=== PATIENT | male | born 1945 | race Caucasian/White ===

== ENCOUNTER 2018-05-03 15:12 | Inpatient (IN) ==
[2018-05-03] MEDS ORDERED: Propofol 1000 mg/100 ml Inj 1,000 MG/100 ML BOTTLE IV.CONT PRN (15:38)
[2018-05-03] MEDS ORDERED: Sod Chloride 0.9% Inj 1,000 ML IV.SIG ONE (15:38)
[2018-05-03] MEDS ORDERED: Piperacil/Tazo 4.5 GM Premix 4.5 GM/100 ML BAG IV.SIG STA (15:38)
[2018-05-03] MEDS ORDERED: Acetaminophen 650 MG Supp RECTAL ONE (15:41)
[2018-05-03] MEDS ORDERED: Sod Chloride 0.9% Inj 1,000 ML IV.CONT SCH ×2 (15:45→17:00)
[2018-05-03] MEDS ORDERED: Sod Chloride 0.9% Inj 1,000 ML IV.SIG SCH (15:45)
--- NOTE | 2018-05-03 15:52 | ED ---
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 Value Yes Sodium (136-145) meq/L Potassium (3.5-5.1) meq/L Chloride (98-107) meq/L Carbon Dioxide (21.0-32.0) meq/L Anion Gap (5-15) meq/L BUN (7-18) mg/dL Creatinine (0.60-1.30) mg/dL Estimated GFR (>89) mL/min POC Glucose (68-110) mg/dl Random Glucose (74-106) mg/dL Lactic Acid (0.4-2.0) mmol/L Calcium (8.5-10.1) mg/dL Calcium Adj for Albumin (8.5-10.1) mg/dL Phosphorus (2.5-4.9) mg/dL Magnesium (1.5-2.5) mg/dL Total Bilirubin (0.2-1.0) mg/dL AST (15-37) U/L ALT (12-78) U/L Alkaline Phosphatase (45-117) U/L Ammonia (11-32) mcmol/L Lactate Dehydrogenase (87-241) U/L Total Creatine Kinase (39-308) U/L CK-MB (CK-2) (0.5-3.6) ng/mL CK-MB (CK-2) % (0.0-4.0) % Troponin I (0.02-0.05) ng/mL Total Protein (6.4-8.2) g/dL Albumin (3.4-5.0) g/dL Lipase (73-393) U/L TSH (0.358-3.740) uIU/mL Urine Color (Yellw/Straw) Urine Clarity (Clear) Urine pH (5.0-8.5) Ur Specific Pray (1.002-1.035) Urine Protein (Neg-Trace) mg/dL Urine Glucose (UA) (Negative) mg/dL Urine Ketones (Negative) mg/dL Urine Occult Blood (Negative) Urine Nitrate (Negative) Urine Bilirubin (Negative) Urine Urobilinogen (Less than 2) mg/dL Ur Leukocyte Esterase (Negative) Urine RBC (0-3) /hpf Urine WBC (0-5) /hpf Ur Squamous Epith Cells (0-5) /hpf Urine Bacteria (None) /hpf Hyaline Casts (0-3) /lpf Urine Mucus (Occasional) /lpf Micro UA Comment Ur Microscopic Review Urine Culture Comments Ur Random Creatinine (27-300) mg/dL Ur Random Sodium meq/L Nasal Screen MRSA (PCR) Not detected (Negative) Urine Opiates Screen (Neg) Ur Barbiturates Screen (Neg) Ur Amphetamines Screen (Neg) U Benzodiazepines Scrn (Neg) Urine Cocaine Screen (Neg) U Cannabinoids Screen (Neg) Hepatitis A IgM Ab Nonreactive (Nonreactive) Hep Bs Antigen Nonreactive (Nonreactive) Hep B Core IgM Ab Nonreactive (Nonreactive) Hep C IgG Ab Nonreactive (Nonreactive) Blood Type Antibody Screen 05/03/18 05/03/18 05/03/18 Range/Units 22:55 23:45 23:45 WBC (4.0-11.0) th/mm3 RBC (4.50-5.90) mil/mm3 Hgb (13.0-17.0) gm/dL Hct (39.0-51.0) % MCV (80.0-100.0) fL MCH (27.0-34.0) pg MCHC (32.0-36.0) % RDW (11.6-17.2) % Plt Count (150-450) th/mm3 MPV (7.0-11.0) fL Prelim Diff (Auto) Neut % (Auto) (16.0-70.0) % Lymph % (Auto) (9.0-44.0) % [place] % (Auto) (0.0-8.0) % Eos % (Auto) (0.0-4.0) % Baso % (Auto) (0.0-2.0) % Neut # (Auto) (1.8-7.7) th/mm3 Lymph # (Auto) (1.0-4.8) th/mm3 [place] # (Auto) (0.0-0.9) th/mm3 Eos # (Auto) (0.0-0.4) th/mm3 Baso # (Auto) (0.0-0.2) th/mm3 WBC Differential Seg Neuts % (Manual) (16-70) % Band Neuts % (Manual) (0-6) % Lymphocytes % (Manual) (9-44) % Monocytes % (Manual) (0-8) % Metamyelocytes % (Man) (0-1) % Myelocytes % (Man) (0-0) % Promyelocytes % (Man) (0-0) % Abs Neuts (Manual) (1.8-7.7) th/mm3 Differential Comment Toxic Granulation (None) Dohle Bodies (None) Platelet Estimate (Normal) Platelet Morphology (Normal) PT (9.8-11.6) sec INR Ratio APTT 59.7 H D (23.4-31.7) sec Fibrinogen (227-377) mg/dL Puncture Site Art line Patient Temperature 98.6 O2 Saturation 98 (90-100) % ABG pH 7.20 L* (7.380-7.420) ABG pCO2 46 H (38-42) mmHg ABG pO2 377 H (61-120) mmHg ABG HCO3 17 L (22-26) mmol/L ABG O2 Content 19.7 (12.0-20.0) Vol % ABG Base Excess -9.7 L (-2-2) mmol/L ABG Methemoglobin 1.5 (0-2) % Micah Test Hemoglobin 13.7 (12.0-16.0) G/DL Carboxyhemoglobin 0.1 (0-4) % O2 Delivery Device Ventilator Vent Setting Ac 24, vt 550,peep 5 Inspired O2 100 % Critical Value Yes Sodium (136-145) meq/L Potassium (3.5-5.1) meq/L Chloride (98-107) meq/L Carbon Dioxide (21.0-32.0) meq/L Anion Gap (5-15) meq/L BUN (7-18) mg/dL Creatinine (0.60-1.30) mg/dL Estimated GFR (>89) mL/min POC Glucose (68-110) mg/dl Random Glucose (74-106) mg/dL Lactic Acid 4.3 H* (0.4-2.0) mmol/L Calcium (8.5-10.1) mg/dL Calcium Adj for Albumin (8.5-10.1) mg/dL Phosphorus (2.5-4.9) mg/dL Magnesium (1.5-2.5) mg/dL Total Bilirubin (0.2-1.0) mg/dL AST (15-37) U/L ALT (12-78) U/L Alkaline Phosphatase (45-117) U/L Ammonia (11-32) mcmol/L Lactate Dehydrogenase (87-241) U/L Total Creatine Kinase (39-308) U/L CK-MB (CK-2) (0.5-3.6) ng/mL CK-MB (CK-2) % (0.0-4.0) % Troponin I (0.02-0.05) ng/mL Total Protein (6.4-8.2) g/dL Albumin (3.4-5.0) g/dL Lipase (73-393) U/L TSH (0.358-3.740) uIU/mL Urine Color (Yellw/Straw) Urine Clarity (Clear) Urine pH (5.0-8.5) Ur Specific Pray (1.002-1.035) Urine Protein (Neg-Trace) mg/dL Urine Glucose (UA) (Negative) mg/dL Urine Ketones (Negative) mg/dL Urine Occult Blood (Negative) Urine Nitrate (Negative) Urine Bilirubin (Negative) Urine Urobilinogen (Less than 2) mg/dL Ur Leukocyte Esterase (Negative) Urine RBC (0-3) /hpf Urine WBC (0-5) /hpf Ur Squamous Epith Cells (0-5) /hpf Urine Bacteria (None) /hpf Hyaline Casts (0-3) /lpf Urine Mucus (Occasional) /lpf Micro UA Comment Ur Microscopic Review Urine Culture Comments Ur Random Creatinine (27-300) mg/dL Ur Random Sodium meq/L Nasal Screen MRSA (PCR) (Negative) Urine Opiates Screen (Neg) Ur Barbiturates Screen (Neg) Ur Amphetamines Screen (Neg) U Benzodiazepines Scrn (Neg) Urine Cocaine Screen (Neg) U Cannabinoids Screen (Neg) Hepatitis A IgM Ab (Nonreactive) Hep Bs Antigen (Nonreactive) Hep B Core IgM Ab (Nonreactive) Hep C IgG Ab (Nonreactive) Blood Type Antibody Screen 05/03/18 05/03/18 05/03/18 Range/Units 23:45 23:45 23:53 WBC (4.0-11.0) th/mm3 RBC (4.50-5.90) mil/mm3 Hgb (13.0-17.0) gm/dL Hct (39.0-51.0) % MCV (80.0-100.0) fL MCH (27.0-34.0) pg MCHC (32.0-36.0) % RDW (11.6-17.2) % Plt Count (150-450) th/mm3 MPV (7.0-11.0) fL Prelim Diff (Auto) Neut % (Auto) (16.0-70.0) % Lymph % (Auto) (9.0-44.0) % [place] % (Auto) (0.0-8.0) % Eos % (Auto) (0.0-4.0) % Baso % (Auto) (0.0-2.0) % Neut # (Auto) (1.8-7.7) th/mm3 Lymph # (Auto) (1.0-4.8) th/mm3 [place] # (Auto) (0.0-0.9) th/mm3 Eos # (Auto) (0.0-0.4) th/mm3 Baso # (Auto) (0.0-0.2) th/mm3 WBC Differential Seg Neuts % (Manual) (16-70) % Band Neuts % (Manual) (0-6) % Lymphocytes % (Manual) (9-44) % Monocytes % (Manual) (0-8) % Metamyelocytes % (Man) (0-1) % Myelocytes % (Man) (0-0) % Promyelocytes % (Man) (0-0) % Abs Neuts (Manual) (1.8-7.7) th/mm3 Differential Comment Toxic Granulation (None) Dohle Bodies (None) Platelet Estimate (Normal) Platelet Morphology (Normal) PT (9.8-11.6) sec INR Ratio APTT (23.4-31.7) sec Fibrinogen (227-377) mg/dL Puncture Site Patient Temperature O2 Saturation (90-100) % ABG pH (7.380-7.420) ABG pCO2 (38-42) mmHg ABG pO2 (61-120) mmHg ABG HCO3 (22-26) mmol/L ABG O2 Content (12.0-20.0) Vol % ABG Base Excess (-2-2) mmol/L ABG Methemoglobin (0-2) % Micah Test Hemoglobin (12.0-16.0) G/DL Carboxyhemoglobin (0-4) % O2 Delivery Device Vent Setting Inspired O2 % Critical Value Sodium 143 (136-145) meq/L Potassium 5.5 H (3.5-5.1) meq/L Chloride 113 H (98-107) meq/L Carbon Dioxide 17.8 L (21.0-32.0) meq/L Anion Gap 12 (5-15) meq/L BUN 31 H (7-18) mg/dL Creatinine 2.31 H (0.60-1.30) mg/dL Estimated GFR 28 L (>89) mL/min POC Glucose 119 H (68-110) mg/dl Random Glucose 117 H (74-106) mg/dL Lactic Acid (0.4-2.0) mmol/L Calcium 6.4 L* D (8.5-10.1) mg/dL Calcium Adj for Albumin 7.8 L (8.5-10.1) mg/dL Phosphorus (2.5-4.9) mg/dL Magnesium 1.9 (1.5-2.5) mg/dL Total Bilirubin (0.2-1.0) mg/dL AST (15-37) U/L ALT (12-78) U/L Alkaline Phosphatase (45-117) U/L Ammonia 54 H (11-32) mcmol/L Lactate Dehydrogenase (87-241) U/L Total Creatine Kinase 43198 H (39-308) U/L CK-MB (CK-2) 71.3 H (0.5-3.6) ng/mL CK-MB (CK-2) % 0.6 (0.0-4.0) % Troponin I 0.53 H (0.02-0.05) ng/mL Total Protein (6.4-8.2) g/dL Albumin 2.2 L (3.4-5.0) g/dL Lipase (73-393) U/L TSH 0.625 (0.358-3.740) uIU/mL Urine Color (Yellw/Straw) Urine Clarity (Clear) Urine pH (5.0-8.5) Ur Specific Pray (1.002-1.035) Urine Protein (Neg-Trace) mg/dL Urine Glucose (UA) (Negative) mg/dL Urine Ketones (Negative) mg/dL Urine Occult Blood (Negative) Urine Nitrate (Negative) Urine Bilirubin (Negative) Urine Urobilinogen (Less than 2) mg/dL Ur Leukocyte Esterase (Negative) Urine RBC (0-3) /hpf Urine WBC (0-5) /hpf Ur Squamous Epith Cells (0-5) /hpf Urine Bacteria (None) /hpf Hyaline Casts (0-3) /lpf Urine Mucus (Occasional) /lpf Micro UA Comment Ur Microscopic Review Urine Culture Comments Ur Random Creatinine (27-300) mg/dL Ur Random Sodium meq/L Nasal Screen MRSA (PCR) (Negative) Urine Opiates Screen (Neg) Ur Barbiturates Screen (Neg) Ur Amphetamines Screen (Neg) U Benzodiazepines Scrn (Neg) Urine Cocaine Screen (Neg) U Cannabinoids Screen (Neg) Hepatitis A IgM Ab (Nonreactive) Hep Bs Antigen (Nonreactive) Hep B Core IgM Ab (Nonreactive) Hep C IgG Ab (Nonreactive) Blood Type Antibody Screen 05/04/18 05/04/18 05/04/18 Range/Units 05:24 05:45 05:45 WBC 10.9 (4.0-11.0) th/mm3 RBC 4.08 L (4.50-5.90) mil/mm3 Hgb 14.3 (13.0-17.0) gm/dL Hct 42.1 (39.0-51.0) % MCV 103.4 H (80.0-100.0) fL MCH 35.1 H (27.0-34.0) pg MCHC 33.9 (32.0-36.0) % RDW 14.2 (11.6-17.2) % Plt Count 199 (150-450) th/mm3 MPV 8.5 (7.0-11.0) fL Prelim Diff (Auto) Neut % (Auto) 80.9 H (16.0-70.0) % Lymph % (Auto) 17.8 (9.0-44.0) % [place] % (Auto) 1.1 (0.0-8.0) % Eos % (Auto) 0.1 (0.0-4.0) % Baso % (Auto) 0.1 (0.0-2.0) % Neut # (Auto) 8.8 H (1.8-7.7) th/mm3 Lymph # (Auto) 1.9 (1.0-4.8) th/mm3 [place] # (Auto) 0.1 (0.0-0.9) th/mm3 Eos # (Auto) 0.0 (0.0-0.4) th/mm3 Baso # (Auto) 0.0 (0.0-0.2) th/mm3 WBC Differential . Seg Neuts % (Manual) (16-70) % Band Neuts % (Manual) (0-6) % Lymphocytes % (Manual) (9-44) % Monocytes % (Manual) (0-8) % Metamyelocytes % (Man) (0-1) % Myelocytes % (Man) (0-0) % Promyelocytes % (Man) (0-0) % Abs Neuts (Manual) (1.8-7.7) th/mm3 Differential Comment Auto diff final Toxic Granulation (None) Dohle Bodies (None) Platelet Estimate (Normal) Platelet Morphology (Normal) PT 17.7 H (9.8-11.6) sec INR 1.7 Ratio APTT 174.6 H* D (23.4-31.7) sec Fibrinogen 200 L (227-377) mg/dL Puncture Site Art line Patient Temperature 98.6 O2 Saturation 95 (90-100) % ABG pH 7.18 L* (7.380-7.420) ABG pCO2 42 (38-42) mmHg ABG pO2 111 (61-120) mmHg ABG HCO3 15 L* (22-26) mmol/L ABG O2 Content 18.7 (12.0-20.0) Vol % ABG Base Excess -12.0 L (-2-2) mmol/L ABG Methemoglobin 1.5 (0-2) % Micah Test Hemoglobin 13.9 (12.0-16.0) G/DL Carboxyhemoglobin 0.1 (0-4) % O2 Delivery Device Ventilator Vent Setting Ac 24 vt 550 Inspired O2 60 % Critical Value Yes Sodium (136-145) meq/L Potassium (3.5-5.1) meq/L Chloride (98-107) meq/L Carbon Dioxide (21.0-32.0) meq/L Anion Gap (5-15) meq/L BUN (7-18) mg/dL Creatinine (0.60-1.30) mg/dL Estimated GFR (>89) mL/min POC Glucose (68-110) mg/dl Random Glucose (74-106) mg/dL Lactic Acid (0.4-2.0) mmol/L Calcium (8.5-10.1) mg/dL Calcium Adj for Albumin (8.5-10.1) mg/dL Phosphorus (2.5-4.9) mg/dL Magnesium (1.5-2.5) mg/dL Total Bilirubin (0.2-1.0) mg/dL AST (15-37) U/L ALT (12-78) U/L Alkaline Phosphatase (45-117) U/L Ammonia (11-32) mcmol/L Lactate Dehydrogenase (87-241) U/L Total Creatine Kinase (39-308) U/L CK-MB (CK-2) (0.5-3.6) ng/mL CK-MB (CK-2) % (0.0-4.0) % Troponin I (0.02-0.05) ng/mL Total Protein (6.4-8.2) g/dL Albumin (3.4-5.0) g/dL Lipase (73-393) U/L TSH (0.358-3.740) uIU/mL Urine Color (Yellw/Straw) Urine Clarity (Clear) Urine pH (5.0-8.5) Ur Specific Pray (1.002-1.035) Urine Protein (Neg-Trace) mg/dL Urine Glucose (UA) (Negative) mg/dL Urine Ketones (Negative) mg/dL Urine Occult Blood (Negative) Urine Nitrate (Negative) Urine Bilirubin (Negative) Urine Urobilinogen (Less than 2) mg/dL Ur Leukocyte Esterase (Negative) Urine RBC (0-3) /hpf Urine WBC (0-5) /hpf Ur Squamous Epith Cells (0-5) /hpf Urine Bacteria (None) /hpf Hyaline Casts (0-3) /lpf Urine Mucus (Occasional) /lpf Micro UA Comment Ur Microscopic Review Urine Culture Comments Ur Random Creatinine (27-300) mg/dL Ur Random Sodium meq/L Nasal Screen MRSA (PCR) (Negative) Urine Opiates Screen (Neg) Ur Barbiturates Screen (Neg) Ur Amphetamines Screen (Neg) U Benzodiazepines Scrn (Neg) Urine Cocaine Screen (Neg) U Cannabinoids Screen (Neg) Hepatitis A IgM Ab (Nonreactive) Hep Bs Antigen (Nonreactive) Hep B Core IgM Ab (Nonreactive) Hep C IgG Ab (Nonreactive) Blood Type Antibody Screen 12/17/18 12/17/18 12/17/18 Range/Units 05:45 05:45 05:58 WBC (4.0-11.0) th/mm3 RBC (4.50-5.90) mil/mm3 Hgb (13.0-17.0) gm/dL Hct (39.0-51.0) % MCV (80.0-100.0) fL MCH (27.0-34.0) pg MCHC (32.0-36.0) % RDW (11.6-17.2) % Plt Count (150-450) th/mm3 MPV (7.0-11.0) fL Prelim Diff (Auto) Neut % (Auto) (16.0-70.0) % Lymph % (Auto) (9.0-44.0) % [place] % (Auto) (0.0-8.0) % Eos % (Auto) (0.0-4.0) % Baso % (Auto) (0.0-2.0) % Neut # (Auto) (1.8-7.7) th/mm3 Lymph # (Auto) (1.0-4.8) th/mm3 [place] # (Auto) (0.0-0.9) th/mm3 Eos # (Auto) (0.0-0.4) th/mm3 Baso # (Auto) (0.0-0.2) th/mm3 WBC Differential Seg Neuts % (Manual) (16-70) % Band Neuts % (Manual) (0-6) % Lymphocytes % (Manual) (9-44) % Monocytes % (Manual) (0-8) % Metamyelocytes % (Man) (0-1) % Myelocytes % (Man) (0-0) % Promyelocytes % (Man) (0-0) % Abs Neuts (Manual) (1.8-7.7) th/mm3 Differential Comment Toxic Granulation (None) Dohle Bodies (None) Platelet Estimate (Normal) Platelet Morphology (Normal) PT (9.8-11.6) sec INR Ratio APTT (23.4-31.7) sec Fibrinogen (227-377) mg/dL Puncture Site Patient Temperature O2 Saturation (90-100) % ABG pH (7.380-7.420) ABG pCO2 (38-42) mmHg ABG pO2 (61-120) mmHg ABG HCO3 (22-26) mmol/L ABG O2 Content (12.0-20.0) Vol % ABG Base Excess (-2-2) mmol/L ABG Methemoglobin (0-2) % Micah Test Hemoglobin (12.0-16.0) G/DL Carboxyhemoglobin (0-4) % O2 Delivery Device Vent Setting Inspired O2 % Critical Value Sodium 142 (136-145) meq/L Potassium 3.9 D (3.5-5.1) meq/L Chloride 111 H (98-107) meq/L Carbon Dioxide 16.8 L (21.0-32.0) meq/L Anion Gap 14 (5-15) meq/L BUN 35 H (7-18) mg/dL Creatinine 2.78 H (0.60-1.30) mg/dL Estimated GFR 23 L (>89) mL/min POC Glucose 202 H (68-110) mg/dl Random Glucose 221 H D (74-106) mg/dL Lactic Acid 6.0 H* (0.4-2.0) mmol/L Calcium 6.3 L* (8.5-10.1) mg/dL Calcium Adj for Albumin 7.9 L (8.5-10.1) mg/dL Phosphorus 6.0 H D (2.5-4.9) mg/dL Magnesium 1.9 (1.5-2.5) mg/dL Total Bilirubin 1.5 H (0.2-1.0) mg/dL AST 3620 H (15-37) U/L ALT 1462 H (12-78) U/L Alkaline Phosphatase 249 H (45-117) U/L Ammonia (11-32) mcmol/L Lactate Dehydrogenase (87-241) U/L Total Creatine Kinase (39-308) U/L CK-MB (CK-2) (0.5-3.6) ng/mL CK-MB (CK-2) % (0.0-4.0) % Troponin I (0.02-0.05) ng/mL Total Protein 4.8 L D (6.4-8.2) g/dL Albumin 2.0 L (3.4-5.0) g/dL Lipase (73-393) U/L TSH (0.358-3.740) uIU/mL Urine Color (Yellw/Straw) Urine Clarity (Clear) Urine pH (5.0-8.5) Ur Specific Pray (1.002-1.035) Urine Protein (Neg-Trace) mg/dL Urine Glucose (UA) (Negative) mg/dL Urine Ketones (Negative) mg/dL Urine Occult Blood (Negative) Urine Nitrate (Negative) Urine Bilirubin (Negative) Urine Urobilinogen (Less than 2) mg/dL Ur Leukocyte Esterase (Negative) Urine RBC (0-3) /hpf Urine WBC (0-5) /hpf Ur Squamous Epith Cells (0-5) /hpf Urine Bacteria (None) /hpf Hyaline Casts (0-3) /lpf Urine Mucus (Occasional) /lpf Micro UA Comment Ur Microscopic Review Urine Culture Comments Ur Random Creatinine (27-300) mg/dL Ur Random Sodium meq/L Nasal Screen MRSA (PCR) (Negative) Urine Opiates Screen (Neg) Ur Barbiturates Screen (Neg) Ur Amphetamines Screen (Neg) U Benzodiazepines Scrn (Neg) Urine Cocaine Screen (Neg) U Cannabinoids Screen (Neg) Hepatitis A IgM Ab (Nonreactive) Hep Bs Antigen (Nonreactive) Hep B Core IgM Ab (Nonreactive) Hep C IgG Ab (Nonreactive) Blood Type Antibody Screen Imaging Data Radiologist's impression: Chest CTA 05/03/18 00:00 CONCLUSION: 1. Multiple acute displaced rib fractures bilaterally. 2. Spiculated left upper lobe mass not identified on the patient's prior chest x-ray due to technique. This is concerning for underlying malignancy. 3. Slight left lung base infiltrate. Head CT 05/03/18 15:38 CONCLUSION: Chronic small vessel ischemic and atrophic changes. Chest X-Ray 05/03/18 15:39 CONCLUSION: No acute cardiopulmonary disease. Abdomen/Pelvis CT 05/03/18 16:39 CONCLUSION: Cholelithiasis and fatty liver. Chest X-Ray 05/04/18 06:00 CONCLUSION: The lungs are clear. Lines and tubes stable. Discharge Plan Discharge Disposition Patient Disposition: ED Admit(ED Internal Use Only) Discharge Order Discharge Orders: ED Use Only Admit Order (Routine); Ordered 05/03/18 Ordered By: Vinnie Castillo Physicians Team ED Provider: Vninie Castillo Primary Care Provider: UNKNOWN, Attending Provider: Griffin Ceballos Other Providers: Wing Krystian Montiel Louis Status ED Status: Left Department Discharge Information Discharge Date/Time: 05/03/18 18:00
[2018-05-03 16:07] LABS: ABG Base Excess -14.2 mmol/L (-2-2); ABG PCO2 47 mmHg (38-42); ABG PO2 447 mmHg (61-120)
[2018-05-03 16:11] LABS: Baso # (Auto) 0.1 th/mm3 (0.0-0.2); Baso % (Auto) 1.2 % (0.0-2.0); Eos % (Auto) 0.5 % (0.0-4.0); Hematocrit 40.7 % (39.0-51.0); Hemoglobin 12.8 gm/dL (13.0-17.0); Lymph # (Auto) 1.5 th/mm3 (1.0-4.8); Lymph % (Auto) 22.4 % (9.0-44.0); Mean Corpuscular HGB Conc 31.5 % (32.0-36.0); Mean Corpuscular Hemoglobin 34.8 pg (27.0-34.0); Mean Corpuscular Volume 110.3 fL (80.0-100.0); Mean Platelet Volume 8.5 fL (7.0-11.0); Mono # (Auto) 0.4 th/mm3 (0.0-0.9); Mono % (Auto) 5.3 % (0.0-8.0); Neut # (Auto) 4.9 th/mm3 (1.8-7.7); Neut % (Auto) 70.6 % (16.0-70.0); Platelet Count 252 th/mm3 (150-450); Red Blood Count 3.69 mil/mm3 (4.50-5.90); White Blood Count 6.9 th/mm3 (4.0-11.0)
--- NOTE | 2018-05-03 16:15 | XR ---
EXAM DATE: 05/03/2018 4:09 PM EST AGE/SEX: 72 years / Male INDICATIONS: Patient has respiratory distress, intubated. CLINICAL DATA: This is the patient's initial encounter. Patient reports that signs and symptoms have been present for 1 day and indicates a pain score of Nonresponsive. MEDICAL/SURGICAL HISTORY: Non-responsive. Non-responsive. COMPARISON: [facility], XR CHEST PA AND LAT, 04/28/2018. . FINDINGS: The lungs are clear without infiltrate, nodule, or mass. There is no appreciable pleural effusion for technique. Heart and mediastinum are unremarkable. Right IJ line is present with tip overlapping the expected region of the SVC. No definite pneumothora x is seen for technique. NG tube is present with tip in the stomach. ET tube is present with tip overlapping approximately 3 above the james. CONCLUSION: No acute cardiopulmonary disease. Electronically signed by: Trudy Melendez MD Board Certified Radiologist 05/03/2018 4:14 PM EST
[2018-05-03 16:25] LABS: Bacteria,Urine Rare /hpf; Bilirubin,Urine Negative (Negative); Clarity,Urine Cloudy (Clear); Color,Urine Amber (Yellw/Straw); Glucose,Urine (UA) Negative (Negative); Hyaline Casts,Urine 3 /lpf (0-3); Leukocyte Esterase,Urine Trace (Negative); Mucus,Urine Few /lpf (Occasional); Nitrite,Urine Negative (Negative); Specific Gravity,Urine 1.021 (1.002-1.035); Squamous Epithelial Cell,Urine <1 /hpf (0-5)
[2018-05-03] MEDS ORDERED: Oseltamivir Liq 30 MG/5 ML Oral Syringe PO ONE (16:27)
[2018-05-03 16:30] LABS: Alanine Aminotransferase 438 U/L (12-78); Albumin 2.3 g/dL (3.4-5.0); Anion Gap 18 meq/L (5-15); Aspartate Aminotransferase 648 U/L (15-37); Blood Urea Nitrogen 22 mg/dL (7-18); Calcium 7.5 mg/dL (8.5-10.1); Carbon Dioxide 15.4 meq/L (21.0-32.0); Chloride 110 meq/L (98-107); Glomerular Filtration Rate 39 mL/min (>89); Glucose,Random 92 mg/dL (74-106); Potassium 4.9 meq/L (3.5-5.1); Sodium 143 meq/L (136-145)
[2018-05-03 16:32] LABS: Activated Partial Thrombo Time 47.5 sec (23.4-31.7); Alkaline Phosphatase 159 U/L (45-117); INR 1.2 Ratio; Prothrombin Time 12.1 sec (9.8-11.6); Total Protein 5.5 g/dL (6.4-8.2)
[2018-05-03 16:43] LABS: Troponin I 0.06 ng/mL (0.02-0.05)
[2018-05-03 16:44] LABS: CKMB Percent 2.3 % (0.0-4.0); Creatine Kinase MB 7.5 ng/mL (0.5-3.6)
[2018-05-03 16:48] LABS: Lymphocytes 12 % (9-44); Metamyelocytes 5 % (0-1); Monocytes 9 % (0-8); Myelocytes 3 % (0-0); Platelet Estimate Normal (Normal); Platelet Morphology Normal (Normal); Promyelocyte 1 % (0-0)
[2018-05-03] MEDS ORDERED: fentaNYL 10 mcg/mL Premix Drip 2,500 MCG/250 ML BAG IV.SIG PRN (16:50)
[2018-05-03] MEDS ORDERED: Bisacodyl 10 MG Supp RECTAL PRN (16:50)
[2018-05-03] MEDS ORDERED: Dextrose 50% in Water 50 ML Vial IV.PUSH PRN (16:56)
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
--- NOTE | 2018-05-03 17:05 | P.CONCA ---
History of Present Illness Service: [facility] cardiology Consult date: 05/03/18 Requesting Physician: Vinnie Castillo Reason for Consult: post cardiac arrest. Primary Care Provider: UNKNOWN History of Present Illness: Patient was intubated and sedated. Info obtained from DR. Castillo in ED Patient was found down on the street by his neighbor. He was talking to his neighbor about 10 minutes ago. EMS was called. Per dr. Castillo, initial rhythm was asystole. Patient was resuscitated, intubated, and regained sinus rhythm. Initial SBP was 40, up to 70 after IV fluid, then to 110 on Dopamine. ECG showed sinus tachy, upsloping ST depression precordial leads. Review of Systems unobtainable due to endotracheal tube PMFSH - History History Provided By: Easement Man / EMT - Medical / Surgical Hx Neg / Unobtainable Medical Problems Denied: Unable to Obtain - Medical History Medical History: Medical History (Last Updated 05/03/18 @ 17:07 by Griffin Ceballos MD) COPD (chronic obstructive pulmonary disease) HTN (hypertension) - Surgical History Surgical History: Surgical History (Last Updated 05/03/18 @ 17:07 by Griffin Ceballos MD) Surgical history unknown - Family History Family History: Family History (Last Updated 05/03/18 @ 17:08 by Griffin Ceballos MD) Other Family history unknown - Tobacco History Smoking Status: Refused to answer - Alcohol History How Often Do You Have a Drink Containing Alcohol: Unable to Obtain - Substance Use History Substance History: Unable to Obtain - Travel History Recent Travel in the [place] Within the Last 8 Weeks: No Recent Travel Out of the Country Within the Last 8 Weeks: No - Immunization History Tetanus Immunization: Unable to Assess Medications and Allergies Active Medications: Active Medications Sodium Chloride (Ns Inj) 1,000 mls @ 0 mls/hr IV.SIG .Q0M GLORIA Propofol (Diprivan 1000 Mg/100 Ml Inj) 1,000 mg in 100 mls @ 2.545 mls/hr IV.CONT TITRATE PRN; Protocol PRN Reason: Per Protocol Last Titration: 05/03/18 16:28 Dose: 10 mcg/kg/min, 5.09 mls/hr Sodium Chloride (Ns Flush) 2 ml IV.FLUSH PRN PRN PRN Reason: FLUSH AFTER USING IV ACCESS Allergies Allergy/AdvReac Type Severity Reaction Status Date / Time procaine [From Novocain] Allergy Arrhythmias Verified 05/03/18 15:13 Home Medications Medication Instructions Recorded Confirmed Type enalapril maleate 5 mg PO DAILY 05/03/18 05/03/18 History mometasone-formoterol [Dulera] 2 puff INHALATION BID 05/03/18 05/03/18 History montelukast [Singulair] 10 mg PO QPM 05/03/18 05/03/18 History tiotropium bromide [Spiriva with 1 cap INHALATION DAILY 05/03/18 05/03/18 History HandiHaler] Exam Vital signs: Vital Signs 05/03/18 15:16 05/03/18 15:20 05/03/18 15:22 Temperature Pulse Rate 117 H Respiratory Rate 17 25 H Blood Pressure 86/54 L Pulse Oximetry 86 L 100 98 05/03/18 15:25 05/03/18 15:27 05/03/18 15:44 Temperature 102.3 F H Pulse Rate 122 H 123 H Respiratory Rate 20 20 Blood Pressure 141/66 H 137/66 Pulse Oximetry 98 98 05/03/18 16:09 05/03/18 16:22 05/03/18 16:49 Temperature Pulse Rate 103 H 102 H Respiratory Rate 20 20 Blood Pressure 145/74 H 122/58 L Pulse Oximetry 100 100 100 Intake & Output 05/02/18 05/03/18 05/03/18 18:59 06:59 18:59 Intake Total 100 / 100 Balance 100 / 100 Weight 84.822 kg Intake: IV 100 / 100 Zosyn 4.5 GM Premix 4.5 gm In 100 / 100 100 ml @ 200 mls/hr IV.SIG STAT STA Rx#:[id number] - Constitutional Comments: sedated on ventilator - Routine Neck Exam Present: JVD - Routine Respiratory Exam Present: CTA bilaterally - Routine Cardiovascular Exam Present: RRR, S1, S2 - Routine Abdominal Exam Present: soft, normoactive bowel sounds Results 05/03/18 18:36 05/03/18 18:36 Cardiac Enzymes 05/03/18 05/03/18 Range/Units 15:45 15:45 AST 648 H (15-37) U/L CK-MB (CK-2) 7.5 H (0.5-3.6) ng/mL Troponin I 0.06 H (0.02-0.05) ng/mL Coagulation 05/03/18 Range/Units 15:45 PT 12.1 H (9.8-11.6) sec APTT 47.5 H (23.4-31.7) sec CBC 05/03/18 Range/Units 15:45 WBC 6.9 (4.0-11.0) th/mm3 RBC 3.69 L (4.50-5.90) mil/mm3 Hgb 12.8 L (13.0-17.0) gm/dL Hct 40.7 (39.0-51.0) % Plt Count 252 (150-450) th/mm3 Neut # (Auto) 4.9 (1.8-7.7) th/mm3 Lymph # (Auto) 1.5 (1.0-4.8) th/mm3 [place] # (Auto) 0.4 (0.0-0.9) th/mm3 Eos # (Auto) 0.0 (0.0-0.4) th/mm3 Baso # (Auto) 0.1 (0.0-0.2) th/mm3 Comprehensive Metabolic Panel 05/03/18 Range/Units 15:45 Sodium 143 (136-145) meq/L Potassium 4.9 (3.5-5.1) meq/L Chloride 110 H (98-107) meq/L Carbon Dioxide 15.4 L (21.0-32.0) meq/L BUN 22 H (7-18) mg/dL Creatinine 1.74 H (0.60-1.30) mg/dL Calcium 7.5 L (8.5-10.1) mg/dL AST 648 H (15-37) U/L ALT 438 H (12-78) U/L Alkaline Phosphatase 159 H (45-117) U/L Total Protein 5.5 L (6.4-8.2) g/dL Albumin 2.3 L (3.4-5.0) g/dL Intake and Output 05/03/18 05/03/18 05/03/18 06:59 14:59 22:59 Intake Total 100 / 100 Balance 100 / 100 Intake: IV 100 / 100 Zosyn 4.5 GM Premix 4.5 gm In 100 / 100 100 ml @ 200 mls/hr IV.SIG STAT STA Rx#:[id number] Other: Weight 84.822 kg Patient Weight 05/04/18 06:59 Weight 84.822 kg - Imaging and Cardiology Imaging: Impressions Chest X-Ray 05/03/18 15:39 CONCLUSION: No acute cardiopulmonary disease. Assessment and Plan - Assessment (1) Cardiac arrest Code(s): I46.9 - Cardiac arrest, cause unspecified Status: Acute (2) Hypotension Code(s): I95.9 - Hypotension, unspecified Status: Acute - Plan 1. Cardiac arrest, initial rhythm asystole. Unknown etiology. EKG showed no acute ischemic changes. Pending imaging study of head chest and abdomen. Will need 2D echocardiogram to assess left ventricular function valvular abnormality. When patient have meaningful neurologic recovery, consider ischemic workup. Patient will be managed by ICU team. Will follow closely. [facility] Cardiology team will continue care this patient tomorrow.
--- NOTE | 2018-05-03 17:20 | CT ---
EXAM DATE: 05/03/2018 5:15 PM EST AGE/SEX: 72 years / Male INDICATIONS: Fall today, Patient coded, Altered Mental Status CLINICAL DATA: This is the patient's initial encounter. Patient reports that signs and symptoms have been present for 1 day and indicates a pain score of Nonresponsive. MEDICAL/SURGICAL HISTORY: Chronic obstructive pulmonary disease. Hypertension. None. RADIATION DOSE: 46.62 CTDI (mGy) COMPARISON: No prior exams available for comparison. TECHNIQUE: CT of the head without contrast. Using automated exposure control and adjustment of the mA and/or kV according to patient size, radiation dose was kept as low as reasonably achievable to ob tain optimal diagnostic quality images. DICOM format image data is available electronically for revi ew and comparison. FINDINGS: There is no evidence for intracranial hemorrhage, mass effect, mass lesions, or edema. The visualize d bony structures appear intact. Moderate degree of brain atrophy is seen. Moderate periventricular white matter changes are seen nonspecific mostly consistent with chronic small vessel ischemic change s. There are no signs of acute infarction for technique. CONCLUSION: Chronic small vessel ischemic and atrophic changes. Electronically signed by: Trudy Melendez MD Board Certified Radiologist 05/03/2018 5:18 PM EST
[2018-05-03] MEDS ORDERED: fentaNYL 10 mcg/mL Premix Drip 2,500 MCG/250 ML BAG ONE (17:39)
--- NOTE | 2018-05-03 17:39 | CT ---
EXAM DATE: 05/03/2018 5:30 PM EST AGE/SEX: 72 years / Male INDICATIONS: Fall today, Abdomen pain CLINICAL DATA: This is the patient's initial encounter. Patient reports that signs and symptoms have been present for 1 day and indicates a pain score of Nonresponsive. MEDICAL/SURGICAL HISTORY: Chronic obstructive pulmonary disease. Hypertension. None. RADIATION DOSE: 14.86 CTDI (mGy) COMPARISON: No prior exams available for comparison. TECHNIQUE: Multiple contiguous axial images were obtained through the abdomen. Images were obtained using multiple row detector helical technique. Using automated exposure control and adjustment of the mA and/or kV according to patient size, radiation dose was kept as low as reasonably achievable to o btain optimal diagnostic quality images. DICOM format image data is available electronically for rev iew and comparison. FINDINGS: Abdomen CT: The spleen, pancreas, kidneys, adrenals are unremarkable. There is no evidence for any appreciable p athological adenopathy, free fluid, or bowel obstruction. Slight left lung base atelectasis and/or i nfiltrate is seen. The liver is fatty. Gallstones are present within the gallbladder without signs of cholecystitis for technique. There are atherosclerotic calcifications involving the aorta and iliac arteries chronic in nature. Th ere are numerous diverticuli within the colon mainly the sigmoid colon without signs of diverticuliti s for technique. Pelvic CT: There is no evidence for mass, abscess formation, or any significant adenopathy within the pelvis. T here is prominent fat within right inguinal canal without evidence for bowel herniation. CONCLUSION: Cholelithiasis and fatty liver. Electronically signed by: Trudy Melendez MD Board Certified Radiologist 05/03/2018 5:38 PM EST
[2018-05-03] MEDS ORDERED: Heparin Drip 25,000 UNIT/250 ML BAG IV.CONT PRN (17:46)
--- NOTE | 2018-05-03 17:46 | CT ---
EXAM DATE: 05/03/2018 5:31 PM EST AGE/SEX: 72 years / Male INDICATIONS: Fall today, patient coded CLINICAL DATA: This is the patient's initial encounter. Patient reports that signs and symptoms have been present for 1 day and indicates a pain score of Nonresponsive. MEDICAL/SURGICAL HISTORY: Chronic obstructive pulmonary disease. Hypertension. None. RADIATION DOSE: 19.77 CTDI (mGy) COMPARISON: [facility] – [place], CHEST 1V SINGLE AP, 05/03/2018. . TECHNIQUE: Volumetric scanning was performed using a multi-row detector CT scanner during bolus infu bucky of 50ML ml Visipaque 320 (iodixanol) nonionic water-soluble contrast as a single exam dose. The data was post processed with a variety of visualization algorithms including full volume maximum int ensity projection and sliding thin slab reformation. Using automated exposure control and adjustment of the mA and/or kV according to patient size, radiation dose was kept as low as reasonably achievab le to obtain optimal diagnostic quality images. DICOM format image data is available electronically for review and comparison. FINDINGS: Approximate 1.5 cm spiculated mass is present left upper lobe concerning for underlying malignancy. There is slight left lung base slight scarring or atelectasis is seen within lingula as well. COPD ch anges are seen. atelectasis and/or infiltrate. There are multiple acute displaced rib fractures bilaterally. No definite pneumothorax is seen for technique. CONCLUSION: 1. Multiple acute displaced rib fractures bilaterally. 2. Spiculated left upper lobe mass not identified on the patient's prior chest x-ray due to techniqu e. This is concerning for underlying malignancy. 3. Slight left lung base infiltrate. Electronically signed by: Trudy Melendez MD Board Certified Radiologist 05/03/2018 5:44 PM EST
--- NOTE | 2018-05-03 18:34 | P.PCN ---
Date of procedure: 05/03/18 Pre-op diagnosis: Target temperature monitoring Post-op diagnosis: same Procedure: DATE: 05/03/2018 PROCEDURE: Right femoral arterial catheter placement INDICATION: Hemodynamic access DETAILS OF PROCEDURE The patient was placed in supine position. The skin was cleansed with Chloraprep. Additional barrier precautions included large sterile drape, sterile gloves, sterile gown, face mask, and hat. 1% lidocaine was used for local anesthesia. Under direct ultrasound guidance and on the initial attempt, the artery was accessed with an introducer needle. The guide wire was advanced. Using Seldinger technique 20 gauge arterial catheter was placed. The guide wire was removed. The catheter was connected to a transducer line and flushed with saline. The video monitor displayed normal arterial wave forms. The catheter was secured with 2-0 silk. A sterile dressing with antibiotic disc was applied. ESTIMATED BLOOD LOSS: minimal COMPLICATIONS: None
--- NOTE | 2018-05-03 18:36 | P.PCN ---
Date of procedure: 05/03/18 Pre-op diagnosis: Out of hospital cardiac arrest/target temperature monitoring Post-op diagnosis: same Procedure: DATE: 05/03/2018 Quatro catheter PLACEMENT: Right femoral vein. Ultrasound-guided INDICATION: Targeted temperature CONSENT Informed consent for procedure was obtained and considered emergent DESCRIPTION OF THE PROCEDURE The patient was placed in supine position. The skin was cleansed with Chloraprep. Additional barrier precautions included large sterile drape, sterile gloves, sterile gown, face mask, and hat. 1 % lidocaine was used for local anesthesia. Under direct ultrasound guidance and on initial attempt, the vein was accessed with an introducer needle. The guide wire was advanced and the tract was dilated twice. Using Seldinger technique a 45 cm Zoll cooling Quattro catheter triple-lumen catheter was advanced to a depth of 45 centimeters. The guide wire was removed. All ports had good return of dark venous blood and flushed easily with saline. The central line was secured with 2.0 silk. A sterile dressing with antibiotic disc was applied. ESTIMATED BLOOD LOSS: Minimal COMPLICATIONS: No apparent complications.
[2018-05-03 18:58] LABS: Hematocrit 42.9 % (39.0-51.0); Hemoglobin 14.1 gm/dL (13.0-17.0); Mean Corpuscular HGB Conc 32.9 % (32.0-36.0); Mean Corpuscular Hemoglobin 33.8 pg (27.0-34.0); Mean Corpuscular Volume 102.7 fL (80.0-100.0); Mean Platelet Volume 8.1 fL (7.0-11.0); Platelet Count 284 th/mm3 (150-450); Red Blood Count 4.18 mil/mm3 (4.50-5.90); Red Cell Distribution Width 13.8 % (11.6-17.2); White Blood Count 19.4 th/mm3 (4.0-11.0)
[2018-05-03 19:10] LABS: Activated Partial Thrombo Time 42.2 sec (23.4-31.7); INR 1.3 Ratio; Prothrombin Time 13.4 sec (9.8-11.6)
[2018-05-03 19:30] LABS: Albumin 2.5 g/dL (3.4-5.0); Calcium 7.2 mg/dL (8.5-10.1); Carbon Dioxide 15.5 meq/L (21.0-32.0); Magnesium 1.9 mg/dL (1.5-2.5); Phosphorus 7.1 mg/dL (2.5-4.9); Potassium 5.5 meq/L (3.5-5.1)
[2018-05-03 19:48] LABS: Troponin I 0.29 ng/mL (0.02-0.05)
[2018-05-03 19:49] LABS: Hepatitits B Surface Antigen Nonreactive (Nonreactive)
[2018-05-03] MEDS: Artificial Tears Opth Oint 3.5 GM Tube EACH EYE PRN ×2 (19:58→23:28)
[2018-05-03 19:59] LABS: Dohle Bodies Present; Lymphocytes 6 % (9-44); Metamyelocytes 1 % (0-1); Monocytes 1 % (0-8); Myelocytes 1 % (0-0); Platelet Estimate Normal (Normal); Platelet Morphology Normal (Normal); Toxic Granulation 1+
[2018-05-03] MEDS: Propofol 1000 mg/100 ml Inj 1,000 MG/100 ML BOTTLE IV.CONT PRN (19:59)
[2018-05-03 20:03] LABS: CKMB Percent 0.6 % (0.0-4.0); Creatine Kinase MB 46.2 ng/mL (0.5-3.6)
[2018-05-03 20:22] LABS: ABG Base Excess -13.1 mmol/L (-2-2); ABG PCO2 46 mmHg (38-42); ABG PO2 106 mmHG (61-120)
[2018-05-03] MEDS: Cisatracurium Inj 100 MG in Sodium Chlor 0.9% Inj 240 ML IV.CONT PRN (20:27)
[2018-05-03] MEDS: Multivitamin Inj 10 ML, Thiamine Inj 100 MG, Folic Acid Inj 1 MG in Sodium Chlor 0.9% I... IV.SIG SCH (20:27)
[2018-05-03 21:03] LABS: Hepatitis A IgM Antibody Nonreactive (Nonreactive)
[2018-05-03 23:15] LABS: ABG Base Excess -9.7 mmol/L (-2-2); ABG PCO2 46 mmHg (38-42); ABG PO2 377 mmHG (61-120)
[2018-05-03] MEDS: Oseltamivir Phosphate 30 MG Capsule NG/OG SCH (23:23)
[2018-05-03] MEDS: Sodium Bicarbonate 8.4% Inj 150 MEQ in Dextrose 5% in Water Inj 850 ML IV.CONT SCH ×2 (23:23)
[2018-05-03] MEDS: Insulin NovoLOG Aspart Correctional Sugar Inj SQ SCH (23:27)
[2018-05-03] MEDS: Artificial Tears Opth Oint 3.5 GM Tube EACH EYE SCH (23:30)
[2018-05-03] MEDS: Chlorhexidine 0.12% Oral Kit 15 ML UDC OROPHARYNG SCH (23:30)
[2018-05-03] MEDS: Senna/Docusate Sodium 8.6/50 MG Tablet PO SCH (23:30)
[2018-05-04] MEDS: Insulin NovoLOG Aspart Correctional Sugar Inj SQ SCH ×4 (00:54→19:45)
[2018-05-04] MEDS: Oral Hygiene Kit OROPHARYNG SCH ×4 (00:55→16:36)
[2018-05-04 00:56] LABS: Barbiturate Screen,Urine Neg (Neg); Cannabinoid Screen,Urine Neg (Neg); Cocaine Screen,Urine Neg (Neg); Creatinine,Urine Random 192 mg/dL (27-300); Sodium,Urine Random 64 meq/L
[2018-05-04 00:57] LABS: Amphetamine Screen,Urine Neg (Neg)
[2018-05-04 00:59] LABS: Opiate Screen,Urine Neg (Neg)
[2018-05-04 01:08] LABS: Calcium 6.4 mg/dL (8.5-10.1); Carbon Dioxide 17.8 meq/L (21.0-32.0); Magnesium 1.9 mg/dL (1.5-2.5); Potassium 5.5 meq/L (3.5-5.1); Thyroid Stimulating Hormone 0.625 uIU/mL (0.358-3.740); Troponin I 0.53 ng/mL (0.02-0.05)
[2018-05-04 01:22] LABS: Albumin 2.2 g/dL (3.4-5.0); CKMB Percent 0.6 % (0.0-4.0); Calcium-Albumin Corrected 7.8 mg/dL (8.5-10.1); Creatine Kinase MB 71.3 ng/mL (0.5-3.6)
[2018-05-04] MEDS: Norepinephrine Inj 4 MG in Sodium Chlor 0.9% Inj 246 ML IV.SIG PRN ×3 (03:06→21:25)
[2018-05-04] MEDS ORDERED: Chlorhexidine Gluconate 2% 1 Pack (2 Cloths) TOPICAL PRN (04:00)
--- NOTE | 2018-05-04 04:50 | XR ---
EXAM DATE: 05/04/2018 4:39 AM EST AGE/SEX: 72 years / Male INDICATIONS: Shortness of breath, possible pulmonary disease. CLINICAL DATA: This is the patient's subsequent encounter. Patient reports that signs and symptoms h ave been present for 2 days and indicates a pain score of Nonresponsive. MEDICAL/SURGICAL HISTORY: Chronic obstructive pulmonary disease. Hypertension. Non-responsive. COMPARISON: [facility], CHEST 1V SINGLE AP, 05/03/2018. . FINDINGS: ET tube tip well above the james. Gastric tube tip and side-port project within the stomach. Right i nternal jugular catheter tip projects over the distal superior vena cava. The lungs are symmetrically aerated and clear. No evidence of pneumothorax. The heart is normal in size. Both hemidiaphragms wel l delineated. CONCLUSION: The lungs are clear. Lines and tubes stable. Electronically signed by: Jose Alberto Burgos MD Board Certified Radiologist 05/04/2018 4:48 AM EST
[2018-05-04] MEDS: Cisatracurium Inj 100 MG in Sodium Chlor 0.9% Inj 240 ML IV.CONT PRN ×3 (05:11→19:02)
[2018-05-04] MEDS: Chlorhexidine Gluconate 2% 1 Pack (2 Cloths) TOPICAL SCH (05:15)
[2018-05-04 05:33] LABS: ABG PCO2 42 mmHg (38-42); ABG PO2 111 mmHG (61-120)
[2018-05-04 06:09] LABS: Baso % (Auto) 0.1 % (0.0-2.0); Eos % (Auto) 0.1 % (0.0-4.0); Hematocrit 42.1 % (39.0-51.0); Hemoglobin 14.3 gm/dL (13.0-17.0); Lymph # (Auto) 1.9 th/mm3 (1.0-4.8); Lymph % (Auto) 17.8 % (9.0-44.0); Mean Corpuscular HGB Conc 33.9 % (32.0-36.0); Mean Corpuscular Hemoglobin 35.1 pg (27.0-34.0); Mean Corpuscular Volume 103.4 fL (80.0-100.0); Mean Platelet Volume 8.5 fL (7.0-11.0); Mono # (Auto) 0.1 th/mm3 (0.0-0.9); Mono % (Auto) 1.1 % (0.0-8.0); Neut # (Auto) 8.8 th/mm3 (1.8-7.7); Neut % (Auto) 80.9 % (16.0-70.0); Platelet Count 199 th/mm3 (150-450); Red Blood Count 4.08 mil/mm3 (4.50-5.90); Red Cell Distribution Width 14.2 % (11.6-17.2); White Blood Count 10.9 th/mm3 (4.0-11.0)
[2018-05-04 06:30] LABS: INR 1.7 Ratio; Prothrombin Time 17.7 sec (9.8-11.6)
[2018-05-04 06:50] LABS: Activated Partial Thrombo Time 174.6 sec (23.4-31.7)
[2018-05-04 06:54] LABS: Calcium 6.3 mg/dL (8.5-10.1); Carbon Dioxide 16.8 meq/L (21.0-32.0); Magnesium 1.9 mg/dL (1.5-2.5); Potassium 3.9 meq/L (3.5-5.1); Total Protein 4.8 g/dL (6.4-8.2)
--- NOTE | 2018-05-04 07:58 | P.PNCA ---
Subjective Interval history: Patient seen and examined. Intubated and sedated. Undergoing hypothermia protocol s/p cardiac arrest. Medications and Allergies Active Medications: Active Medications Albuterol (Albuterol Neb (Prn)) 2.5 mg NEB Q2HR NEB PRN PRN Reason: SHORTNESS OF BREATH/WHEEZING Albuterol (Duoneb Neb (Mc)) 1 ampul NEB Q4HR NEB [facility] Last Admin: 05/04/18 07:51 Dose: 1 ampul Artificial Tears (Lacrilube Opth Oint) 1 applicatio EACH EYE BID [facility] Last Admin: 05/03/18 23:30 Dose: 1 applicatio Artificial Tears (Lacrilube Opth Oint) 1 applicatio EACH EYE Q4H PRN PRN Reason: WHILE ON NMB Last Admin: 05/03/18 23:28 Dose: 1 applicatio Ascorbic Acid (Vitamin C) 500 mg PO DAILY [facility] Aspirin (Ecotrin) 81 mg PO DAILY [facility] Bisacodyl (Dulcolax Supp) 10 mg RECTAL DAILY PRN PRN Reason: SEVERE CONSITIPATION Budesonide (Pulmocort Respule Neb) 0.5 mg NEB Q12HR NEB [facility] Last Admin: 05/04/18 07:51 Dose: 0.5 mg Buspirone HCl (Buspar) 15 mg NG/OG Q12H PRN PRN Reason: SHIVERING Carvedilol (Coreg) 3.125 mg PO BID [facility] Last Admin: 05/03/18 23:28 Dose: 3.125 mg Chlorhexidine Gluconate (Peridex 0.12% Oral Kit) 15 ml OROPHARYNG BID@0800, 2000 [facility] Last Admin: 05/03/18 23:30 Dose: 15 ml Chlorhexidine Gluconate (Chlorhexidine 2% Cloth) 3 pack TOPICAL DAILY@0400 [facility] Stop: 05/09/18 03:59 Last Admin: 05/04/18 05:15 Dose: 3 pack Chlorhexidine Gluconate (Chlorhexidine 2% Cloth) 3 pack TOPICAL DAILY@0400 PRN PRN Reason: Extra cloth needed Stop: 05/09/18 03:59 Dextrose (D50w Vial) 50 ml IV.PUSH UNSCH PRN PRN Reason: PER HYPOGLYCEMIA PROTOCOL Glucagon (Glucagon Inj) 1 mg OTHER PRN PRN PRN Reason: for Hypoglycemia Protocol Sodium Chloride (Ns Inj) 1,000 mls @ 0 mls/hr IV.SIG .Q0M MC Fentanyl (Fentanyl 10 Mcg/Ml Premix Drip) 2,500 mcg in 250 mls @ 5 mls/hr IV.SIG TITRATE PRN; Protocol PRN Reason: Per Protocol Last Titration: 05/04/18 06:11 Dose: 50 mcg/hr, 5 mls/hr Propofol (Diprivan 1000 Mg/100 Ml Inj) 1,000 mg in 100 mls @ 2.545 mls/hr IV.CONT TITRATE PRN; Protocol PRN Reason: Per Protocol Last Titration: 05/04/18 06:11 Dose: 5 mcg/kg/min, 2.55 mls/hr Multivitamins 10 ml/ Thiamine HCl 100 mg/ Folic Acid 1 mg/Sodium Chloride 511.2 mls @ 125 mls/hr IV.SIG Q24H [facility] Stop: 05/05/18 22:06 Last Infusion: 05/04/18 00:56 Dose: Infused Heparin Sodium/Dextrose (Heparin/D5w 25,000 U/250 Ml) 25,000 unit in 250 mls @ 0 mls/hr IV.CONT TITRATE PRN; Protocol PRN Reason: Per Protocol Last Titration: 05/04/18 07:00 Dose: 0 units/hr, 0 mls/hr Cisatracurium Besylate 100 mg/ (Sodium Chloride) 250 mls @ 12.72 mls/hr IV.CONT TITRATE PRN; Protocol PRN Reason: Per Protocol Last Titration: 05/04/18 06:11 Dose: 3 mcg/kg/min, 38.16 mls/hr Norepinephrine Bitartrate 4 mg (/ Sodium Chloride) 250 mls @ 7.5 mls/hr IV.SIG TITRATE PRN; Protocol PRN Reason: Per Protocol Last Titration: 05/04/18 07:00 Dose: 2 mcg/min, 7.5 mls/hr Sodium Bicarbonate 150 meq/ (Dextrose) 1,000 mls @ 84 mls/hr IV.CONT .[id number] [facility] Last Infusion: 05/04/18 06:11 Dose: 84 mls/hr Insulin Aspart (Novolog Insulin Correctional Sugar Inj) 0 unit SQ Q6HR MC; Protocol Last Admin: 05/04/18 06:22 Dose: 4 unit Lactulose (Lactulose Liq) 30 ml PO DAILY PRN PRN Reason: SEVERE CONSITIPATION Lorazepam (Ativan Inj) 1 mg IV.PUSH Q1H PRN PRN Reason: SEE LABEL COMMENTS Miscellaneous Medication () 1 each OROPHARYNG 0000,0400,1200,1600 [facility] Last Admin: 05/04/18 05:15 Dose: 1 each Ondansetron HCl (Zofran Inj) 4 mg IV.PUSH Q6H PRN PRN Reason: NAUSEA OR VOMITING Oseltamivir Phosphate (Tamiflu) 30 mg NG/OG BID [facility] Stop: 05/08/18 20:59 Last Admin: 05/03/18 23:23 Dose: 30 mg Pantoprazole Sodium (Protonix Inj) 40 mg IV.PUSH DAILY [facility] Senna/Docusate Sodium (Jaelyn-Colace) 1 tab PO BID [facility] Last Admin: 05/03/18 23:30 Dose: Not Given Sennosides (Senokot) 17.2 mg PO Q12H PRN PRN Reason: Moderate Constipation Sodium Chloride (Ns Flush) 2 ml IV.FLUSH BID [facility] Last Admin: 05/03/18 23:28 Dose: 2 ml Sodium Chloride (Ns Flush) 2 ml IV.FLUSH PRN PRN PRN Reason: FLUSH AFTER USING IV ACCESS Terbutaline Sulfate (Brethine Inj) 1 mg SQ UNSCH PRN PRN Reason: For Extravasation Zinc Sulfate (Zinc-220) 220 mg PO DAILY [facility] Allergies Allergy/AdvReac Type Severity Reaction Status Date / Time procaine [From Novocain] Allergy Arrhythmias Verified 05/03/18 15:13 Home Medications Medication Instructions Recorded Confirmed Type enalapril maleate 5 mg PO DAILY 05/03/18 05/03/18 History mometasone-formoterol [Dulera] 2 puff INHALATION BID 05/03/18 05/03/18 History montelukast [Singulair] 10 mg PO QPM 05/03/18 05/03/18 History tiotropium bromide [Spiriva with 1 cap INHALATION DAILY 05/03/18 05/03/18 History HandiHaler] Physical Exam Vital signs: Vital Signs 05/03/18 15:16 05/03/18 15:20 05/03/18 15:22 Temperature Pulse Rate 117 H Respiratory Rate 17 25 H Blood Pressure 86/54 L Pulse Oximetry 86 L 100 98 05/03/18 15:25 05/03/18 15:27 05/03/18 15:44 Temperature 102.3 F H Pulse Rate 122 H 123 H Respiratory Rate 20 20 Blood Pressure 141/66 H 137/66 Pulse Oximetry 98 98 05/03/18 16:09 05/03/18 16:22 05/03/18 16:49 Temperature Pulse Rate 103 H 102 H Respiratory Rate 20 20 Blood Pressure 145/74 H 122/58 L Pulse Oximetry 100 100 100 05/03/18 17:16 05/03/18 18:25 05/03/18 19:49 Temperature Pulse Rate 103 H 95 H Respiratory Rate 20 25 H 27 H Blood Pressure 132/75 Pulse Oximetry 100 0 L 05/03/18 19:50 05/03/18 20:00 05/03/18 23:38 Temperature 97.2 F L Pulse Rate 93 H 74 Respiratory Rate 27 H 24 24 Blood Pressure Pulse Oximetry 88 L 05/04/18 00:00 05/04/18 02:10 05/04/18 03:00 Temperature 90.9 F L 91.2 F L 91.0 F L Pulse Rate 78 72 67 Respiratory Rate 24 24 24 Blood Pressure 96/51 L Pulse Oximetry 90 L 88 L 89 L 05/04/18 03:29 05/04/18 04:00 05/04/18 05:00 Temperature 91.2 F L 91.2 F L Pulse Rate 67 80 69 Respiratory Rate 24 24 24 Blood Pressure 95/58 L 89/54 L Pulse Oximetry 90 L 90 L 05/04/18 07:00 05/04/18 07:51 Temperature Pulse Rate 79 Respiratory Rate 24 24 Blood Pressure Pulse Oximetry 85 L Intake & Output 05/03/18 05/04/18 05/04/18 18:59 06:59 18:59 Intake Total 3100 / 3100 1776.2 / 1776.2 Output Total 200 / 200 415 / 415 Balance 2900 / 2900 1361.2 / 1361.2 Weight 84.822 kg 90.4 kg Intake: IV 2099 / 2099 1776.2 / 1776.2 Nimbex Inj 100 MG In NS Inj 240 38 / 38 ML @ 1 MCG/KG/MIN 12.72 mls/hr IV.CONT TITRATE PRN Rx#: [id number] Heparin/D5W 25,000 U/250 mL 25, 87 / 87 000 unit In 250 ml @ Per Protocol IV.CONT TITRATE PRN Rx #:[id number] Diprivan 1000 mg/100 ml Inj 1, 26 / 26 000 mg In 100 ml @ 5 MCG/KG/MIN 2.545 mls/hr IV.CONT TITRATE PRN Rx#:[id number] NS Inj 1,000 ML @ 84 mls/hr IV. 1000 / 1000 463 / 463 CONT .[id number] [facility] Rx#:[id number] Sodium Bicarbonate 8.4% Inj 150 566 / 566 MEQ In D5W Inj 850 ML @ 84 mls /hr IV.CONT .[id number] [facility] Rx#: [id number] MVI-12 Inj 10 ML Thiamine Inj 511.2 / 511.2 100 MG Folvite Inj 1 MG In NS Inj 500 ML @ 125 mls/hr IV.SIG Q24H [facility] Rx#:[id number] Levophed Inj 4 MG In NS Inj 246 23 / 23 ML @ 2 MCG/MIN 7.5 mls/hr IV. SIG TITRATE PRN Rx#:[id number] Zosyn 4.5 GM Premix 4.5 gm In 100 / 100 100 ml @ 200 mls/hr IV.SIG STAT STA Rx#:[id number] NS Inj 1,000 ML @ Wide Open IV. 1000 / 1000 SIG ONCE ONE Rx#:[id number] fentaNYL 10 mcg/mL Premix Drip 62 / 62 2,500 mcg In 250 ml @ 50 MCG/HR 5 mls/hr IV.SIG TITRATE PRN Rx #:[id number] Oral 0 / 0 Other 1000 / 1000 Output: Urine Amount (Catheter) 200 / 200 15 / 15 Indwelling Temp Sensing 15 / 15 Catheter Indwelling Urethral Catheter 200 / 200 0 / 0 Gastric Drainage 400 / 400 Oral Orogastric Tube 400 / 400 Other: Other Intake Source Saline Solution # Bowel Movements 0 Narrative: GENERAL: sedated, orotracheally intubated SKIN: Warm and dry. HEAD: Atraumatic. Normocephalic. NECK: Trachea midline. No JVD. Right IJ CVL is clean dry and intact CARDIOVASCULAR: Regular rate and rhythm. RESPIRATORY: No accessory muscle use. Clear to auscultation. Breath sounds equal bilaterally. GASTROINTESTINAL: Abdomen soft, non-tender, nondistended. Hepatic and splenic margins not palpable. MUSCULOSKELETAL: Extremities without clubbing, cyanosis, or edema. No obvious deformities. - Urinary Catheter Management Indwelling Urethral Catheter Cath placed during this visit: yes, but has since been removed by the nurse Reason for continuing: Decision to DC catheter Insertion date: 05/03/18 Insertion time: 16:22 Removal date: 05/03/18 Removal time: 20:00 Indwelling Temp Sensing Catheter Cath placed during this visit: yes Reason for continuing: Hourly intake/output Insertion date: 05/03/18 Insertion time: 20:05 Results 05/04/18 05:45 05/04/18 05:45 Cardiac Enzymes 05/03/18 05/03/18 05/03/18 Range/Units 15:45 15:45 18:36 AST 648 H 1981 H (15-37) U/L Lactate Dehydrogenase 2830 H (87-241) U/L CK-MB (CK-2) 7.5 H 46.2 H (0.5-3.6) ng/mL Troponin I 0.06 H 0.29 H (0.02-0.05) ng/mL 05/03/18 05/04/18 Range/Units 23:45 05:45 AST 3620 H (15-37) U/L Lactate Dehydrogenase (87-241) U/L CK-MB (CK-2) 71.3 H (0.5-3.6) ng/mL Troponin I 0.53 H (0.02-0.05) ng/mL Coagulation 05/03/18 05/03/18 05/03/18 Range/Units 15:45 18:36 23:45 PT 12.1 H 13.4 H (9.8-11.6) sec APTT 47.5 H 42.2 H 59.7 H D (23.4-31.7) sec 05/04/18 Range/Units 05:45 PT 17.7 H (9.8-11.6) sec APTT 174.6 H* D (23.4-31.7) sec CBC 05/03/18 05/03/18 05/04/18 Range/Units 15:45 18:36 05:45 WBC 6.9 19.4 H D 10.9 (4.0-11.0) th/mm3 RBC 3.69 L 4.18 L 4.08 L (4.50-5.90) mil/mm3 Hgb 12.8 L 14.1 14.3 (13.0-17.0) gm/dL Hct 40.7 42.9 42.1 (39.0-51.0) % Plt Count 252 284 199 (150-450) th/mm3 Neut # (Auto) 4.9 8.8 H (1.8-7.7) th/mm3 Lymph # (Auto) 1.5 1.9 (1.0-4.8) th/mm3 Towner # (Auto) 0.4 0.1 (0.0-0.9) th/mm3 Eos # (Auto) 0.0 0.0 (0.0-0.4) th/mm3 Baso # (Auto) 0.1 0.0 (0.0-0.2) th/mm3 Comprehensive Metabolic Panel 05/03/18 05/03/18 05/03/18 Range/Units 15:45 18:36 23:45 Sodium 143 139 143 (136-145) meq/L Potassium 4.9 5.5 H 5.5 H (3.5-5.1) meq/L Chloride 110 H 111 H 113 H (98-107) meq/L Carbon Dioxide 15.4 L 15.5 L 17.8 L (21.0-32.0) meq/L BUN 22 H 25 H 31 H (7-18) mg/dL Creatinine 1.74 H 2.05 H 2.31 H (0.60-1.30) mg/dL Calcium 7.5 L 7.2 L* 6.4 L* D (8.5-10.1) mg/dL AST 648 H 1981 H (15-37) U/L ALT 438 H 1158 H (12-78) U/L Alkaline Phosphatase 159 H 280 H (45-117) U/L Total Protein 5.5 L 6.0 L (6.4-8.2) g/dL Albumin 2.3 L 2.5 L 2.2 L (3.4-5.0) g/dL 05/04/18 Range/Units 05:45 Sodium 142 (136-145) meq/L Potassium 3.9 D (3.5-5.1) meq/L Chloride 111 H (98-107) meq/L Carbon Dioxide 16.8 L (21.0-32.0) meq/L BUN 35 H (7-18) mg/dL Creatinine 2.78 H (0.60-1.30) mg/dL Calcium 6.3 L* (8.5-10.1) mg/dL AST 3620 H (15-37) U/L ALT 1462 H (12-78) U/L Alkaline Phosphatase 249 H (45-117) U/L Total Protein 4.8 L D (6.4-8.2) g/dL Albumin 2.0 L (3.4-5.0) g/dL Intake and Output 05/03/18 05/04/18 05/04/18 22:59 06:59 14:59 Intake Total 3100 / 3100 1776.2 / 1776.2 Output Total 200 / 200 415 / 415 Balance 2900 / 2900 1361.2 / 1361.2 Intake: IV 2100 / 2100 1776.2 / 1776.2 Nimbex Inj 100 MG In NS Inj 240 38 / 38 ML @ 1 MCG/KG/MIN 12.72 mls/hr IV.CONT TITRATE PRN Rx#: [id number] Heparin/D5W 25,000 U/250 mL 25, 87 / 87 000 unit In 250 ml @ Per Protocol IV.CONT TITRATE PRN Rx #:[id number] Diprivan 1000 mg/100 ml Inj 1, 26 / 26 000 mg In 100 ml @ 5 MCG/KG/MIN 2.545 mls/hr IV.CONT TITRATE PRN Rx#:[id number] NS Inj 1,000 ML @ 84 mls/hr IV. 1000 / 1000 463 / 463 CONT .[id number] [facility] Rx#:[id number] Sodium Bicarbonate 8.4% Inj 150 566 / 566 MEQ In D5W Inj 850 ML @ 84 mls /hr IV.CONT .[id number] [facility] Rx#: [id number] MVI-12 Inj 10 ML Thiamine Inj 511.2 / 511.2 100 MG Folvite Inj 1 MG In NS Inj 500 ML @ 125 mls/hr IV.SIG Q24H [facility] Rx#:[id number] Levophed Inj 4 MG In NS Inj 246 23 / 23 ML @ 2 MCG/MIN 7.5 mls/hr IV. SIG TITRATE PRN Rx#:[id number] Zosyn 4.5 GM Premix 4.5 gm In 100 / 100 100 ml @ 200 mls/hr IV.SIG STAT STA Rx#:[id number] NS Inj 1,000 ML @ Wide Open IV. 1000 / 1000 SIG ONCE ONE Rx#:[id number] fentaNYL 10 mcg/mL Premix Drip 62 / 62 2,500 mcg In 250 ml @ 50 MCG/HR 5 mls/hr IV.SIG TITRATE PRN Rx #:[id number] Oral 0 / 0 Other 1000 / 1000 Output: Urine Amount (Catheter) 200 / 200 15 / 15 Indwelling Temp Sensing 15 / 15 Catheter Indwelling Urethral Catheter 200 / 200 0 / 0 Gastric Drainage 400 / 400 Oral Orogastric Tube 400 / 400 Other: Other Intake Source Saline Solution # Bowel Movements 0 Weight 84.822 kg 90.4 kg - Imaging and Cardiology Imaging: Impressions Chest CTA 05/03/18 00:00 CONCLUSION: 1. Multiple acute displaced rib fractures bilaterally. 2. Spiculated left upper lobe mass not identified on the patient's prior chest x-ray due to technique. This is concerning for underlying malignancy. 3. Slight left lung base infiltrate. Head CT 05/03/18 15:38 CONCLUSION: Chronic small vessel ischemic and atrophic changes. Chest X-Ray 05/03/18 15:39 CONCLUSION: No acute cardiopulmonary disease. Abdomen/Pelvis CT 05/03/18 16:39 CONCLUSION: Cholelithiasis and fatty liver. Chest X-Ray 05/04/18 06:00 CONCLUSION: The lungs are clear. Lines and tubes stable. Assessment and Plan - Plan 1. Cardiac arrest, initial rhythm asystole. Unknown etiology. EKG showed no acute ischemic changes. Will need 2D echocardiogram to assess left ventricular function valvular abnormality. When patient have meaningful neurologic recovery, consider ischemic workup. Patient will be managed by ICU team. 2. Lung mass, unclear significance, suspicious for malignancy. 3. COPD 4. HTN, currently hypotensive
[2018-05-04] MEDS: Chlorhexidine 0.12% Oral Kit 15 ML UDC OROPHARYNG SCH ×2 (08:22→20:32)
[2018-05-04] MEDS: Oseltamivir Phosphate 30 MG Capsule NG/OG SCH ×2 (08:23→20:33)
[2018-05-04] MEDS: Senna/Docusate Sodium 8.6/50 MG Tablet PO SCH ×2 (08:23→20:33)
[2018-05-04] MEDS: Artificial Tears Opth Oint 3.5 GM Tube EACH EYE SCH ×2 (08:24→20:39)
--- NOTE | 2018-05-04 08:59 | P.PNCC ---
Subjective Subjective Remarks/Hospital Course: 05/04: The patient continues on hypothermia protocol with muscle relaxation provided by cisatracurium infusion, and low-dose propofol infusion. Overnight the patient required initiation of Levophed currently at 2 mics per minute. Lab results reviewed this a.m. showed a severe acidosis despite being on sodium bicarbonate infusion at 84 cc/an hour. Additional dosing of sodium bicarbonate provided, infusion increased. Repeat EKG revealed prolongation of QT interval we will continue to monitor. Objective Vital Signs / I&O: Vital Signs 05/03/18 15:16 05/03/18 15:20 05/03/18 15:22 Temperature Pulse Rate 117 H Respiratory Rate 17 25 H Blood Pressure 86/54 L Pulse Oximetry 86 L 100 98 05/03/18 15:25 05/03/18 15:27 05/03/18 15:44 Temperature 102.3 F H Pulse Rate 122 H 123 H Respiratory Rate 20 20 Blood Pressure 141/66 H 137/66 Pulse Oximetry 98 98 05/03/18 16:09 05/03/18 16:22 05/03/18 16:49 Temperature Pulse Rate 103 H 102 H Respiratory Rate 20 20 Blood Pressure 145/74 H 122/58 L Pulse Oximetry 100 100 100 05/03/18 17:16 05/03/18 18:25 05/03/18 19:49 Temperature Pulse Rate 103 H 95 H Respiratory Rate 20 25 H 27 H Blood Pressure 132/75 Pulse Oximetry 100 0 L 05/03/18 19:50 05/03/18 20:00 05/03/18 23:38 Temperature 97.2 F L Pulse Rate 93 H 74 Respiratory Rate 27 H 24 24 Blood Pressure Pulse Oximetry 88 L 05/04/18 00:00 05/04/18 02:10 05/04/18 03:00 Temperature 90.9 F L 91.2 F L 91.0 F L Pulse Rate 78 72 67 Respiratory Rate 24 24 24 Blood Pressure 96/51 L Pulse Oximetry 90 L 88 L 89 L 05/04/18 03:29 05/04/18 04:00 05/04/18 05:00 Temperature 91.2 F L 91.2 F L Pulse Rate 67 80 69 Respiratory Rate 24 24 24 Blood Pressure 95/58 L 89/54 L Pulse Oximetry 90 L 90 L 05/04/18 07:00 05/04/18 07:51 05/04/18 08:00 Temperature Pulse Rate 79 81 Respiratory Rate 24 24 Blood Pressure 91/59 L Pulse Oximetry 85 L Intake & Output 05/03/18 05/04/18 05/04/18 18:59 06:59 18:59 Intake Total 3100 / 3100 1776.2 / 1776.2 Output Total 200 / 200 415 / 415 0 / 0 Balance 2900 / 2900 1361.2 / 1361.2 0 / 0 Weight 84.822 kg 90.4 kg Intake: IV 2100 / 2100 1776.2 / 1776.2 Nimbex Inj 100 MG In NS Inj 240 38 / 38 ML @ 1 MCG/KG/MIN 12.72 mls/hr IV.CONT TITRATE PRN Rx#: [id number] Heparin/D5W 25,000 U/250 mL 25, 87 / 87 000 unit In 250 ml @ Per Protocol IV.CONT TITRATE PRN Rx #:[id number] Diprivan 1000 mg/100 ml Inj 1, 26 / 26 000 mg In 100 ml @ 5 MCG/KG/MIN 2.545 mls/hr IV.CONT TITRATE PRN Rx#:[id number] NS Inj 1,000 ML @ 84 mls/hr IV. 1000 / 1000 463 / 463 CONT .[id number] GLORIA Rx#:[id number] Sodium Bicarbonate 8.4% Inj 150 566 / 566 MEQ In D5W Inj 850 ML @ 84 mls /hr IV.CONT .[id number] GLORIA Rx#: [id number] MVI-12 Inj 10 ML Thiamine Inj 511.2 / 511.2 100 MG Folvite Inj 1 MG In NS Inj 500 ML @ 125 mls/hr IV.SIG Q24H GLORIA Rx#:[id number] Levophed Inj 4 MG In NS Inj 246 23 / 23 ML @ 2 MCG/MIN 7.5 mls/hr IV. SIG TITRATE PRN Rx#:[id number] Zosyn 4.5 GM Premix 4.5 gm In 100 / 100 100 ml @ 200 mls/hr IV.SIG STAT STA Rx#:[id number] NS Inj 1,000 ML @ Wide Open IV. 1000 / 1000 SIG ONCE ONE Rx#:[id number] fentaNYL 10 mcg/mL Premix Drip 62 / 62 2,500 mcg In 250 ml @ 50 MCG/HR 5 mls/hr IV.SIG TITRATE PRN Rx #:[id number] Oral 0 / 0 Other 1000 / 1000 Output: Urine Amount (Catheter) 200 / 200 0 / 0 Indwelling Temp Sensing 0 / 0 Catheter Indwelling Urethral Catheter 200 / 200 0 / 0 Gastric Drainage 400 / 400 Oral Orogastric Tube 400 / 400 Other: Other Intake Source Saline Solution # Bowel Movements 0 Result Diagrams: 05/04/18 05:45 05/04/18 05:45 Other Results: Laboratory Results WBC 10.9 th/mm3 (4.0-11.0) 05/04/18 05:45 RBC 4.08 mil/mm3 (4.50-5.90) L 05/04/18 05:45 Hgb 14.3 gm/dL (13.0-17.0) 05/04/18 05:45 Hct 42.1 % (39.0-51.0) 05/04/18 05:45 MCV 103.4 fL (80.0-100.0) H 05/04/18 05:45 MCH 35.1 pg (27.0-34.0) H 05/04/18 05:45 MCHC 33.9 % (32.0-36.0) 05/04/18 05:45 RDW 14.2 % (11.6-17.2) 05/04/18 05:45 Plt Count 199 th/mm3 (150-450) 05/04/18 05:45 MPV 8.5 fL (7.0-11.0) 05/04/18 05:45 Prelim Diff (Auto) Manual diff required 05/03/18 18:36 Neut % (Auto) 80.9 % (16.0-70.0) H 05/04/18 05:45 Lymph % (Auto) 17.8 % (9.0-44.0) 05/04/18 05:45 [place] % (Auto) 1.1 % (0.0-8.0) 05/04/18 05:45 Eos % (Auto) 0.1 % (0.0-4.0) 05/04/18 05:45 Baso % (Auto) 0.1 % (0.0-2.0) 05/04/18 05:45 Neut # (Auto) 8.8 th/mm3 (1.8-7.7) H 05/04/18 05:45 Lymph # (Auto) 1.9 th/mm3 (1.0-4.8) 05/04/18 05:45 [place] # (Auto) 0.1 th/mm3 (0.0-0.9) 05/04/18 05:45 Eos # (Auto) 0.0 th/mm3 (0.0-0.4) 05/04/18 05:45 Baso # (Auto) 0.0 th/mm3 (0.0-0.2) 05/04/18 05:45 WBC Differential . 05/04/18 05:45 Seg Neuts % (Manual) 29 % (16-70) 05/03/18 18:36 Band Neuts % (Manual) 62 % (0-6) H 05/03/18 18:36 Lymphocytes % (Manual) 6 % (9-44) L 05/03/18 18:36 Monocytes % (Manual) 1 % (0-8) 05/03/18 18:36 Metamyelocytes % (Man) 1 % (0-1) 05/03/18 18:36 Myelocytes % (Man) 1 % (0-0) H 05/03/18 18:36 Promyelocytes % (Man) 1 % (0-0) H 05/03/18 15:45 Abs Neuts (Manual) 18.0 th/mm3 (1.8-7.7) H 05/03/18 18:36 Differential Comment Auto diff final 05/04/18 05:45 Toxic Granulation 1+ (None) H 05/03/18 18:36 Dohle Bodies Present (None) H 05/03/18 18:36 Platelet Estimate Normal (Normal) 05/03/18 18:36 Platelet Morphology Normal (Normal) 05/03/18 18:36 PT 17.7 sec (9.8-11.6) H 05/04/18 05:45 INR 1.7 Ratio 05/04/18 05:45 APTT 174.6 sec (23.4-31.7) H* D 05/04/18 05:45 Fibrinogen 200 mg/dL (227-377) L 05/04/18 05:45 Puncture Site Art line 05/04/18 05:24 Patient Temperature 98.6 05/04/18 05:24 O2 Saturation 95 % (90-100) 05/04/18 05:24 ABG pH 7.18 (7.380-7.420) L* 05/04/18 05:24 ABG pCO2 42 mmHg (38-42) 05/04/18 05:24 ABG pO2 111 mmHG (61-120) 05/04/18 05:24 ABG HCO3 15 mmol/L (22-26) L* 05/04/18 05:24 ABG O2 Content 18.7 Vol % (12.0-20.0) 05/04/18 05:24 ABG Base Excess -12.0 mmol/L (-2-2) L 05/04/18 05:24 ABG Methemoglobin 1.5 % (0-2) 05/04/18 05:24 Micah Test Present 05/03/18 15:57 Hemoglobin 13.9 G/DL (12.0-16.0) 05/04/18 05:24 Carboxyhemoglobin 0.1 % (0-4) 05/04/18 05:24 O2 Delivery Device Ventilator 05/04/18 05:24 Vent Setting Ac 24 vt 550 05/04/18 05:24 Inspired O2 60 % 05/04/18 05:24 Critical Value Yes 05/04/18 05:24 Sodium 142 meq/L (136-145) 05/04/18 05:45 Potassium 3.9 meq/L (3.5-5.1) D 05/04/18 05:45 Chloride 111 meq/L (98-107) H 05/04/18 05:45 Carbon Dioxide 16.8 meq/L (21.0-32.0) L 05/04/18 05:45 Anion Gap 14 meq/L (5-15) 05/04/18 05:45 BUN 35 mg/dL (7-18) H 05/04/18 05:45 Creatinine 2.78 mg/dL (0.60-1.30) H 05/04/18 05:45 Estimated GFR 23 mL/min (>89) L 05/04/18 05:45 POC Glucose 202 mg/dl (68-110) H 05/04/18 05:58 Random Glucose 221 mg/dL (74-106) H D 05/04/18 05:45 Lactic Acid 6.0 mmol/L (0.4-2.0) H* 05/04/18 05:45 Calcium 6.3 mg/dL (8.5-10.1) L* 05/04/18 05:45 Calcium Adj for Albumin 7.9 mg/dL (8.5-10.1) L 05/04/18 05:45 Phosphorus 6.0 mg/dL (2.5-4.9) H D 05/04/18 05:45 Magnesium 1.9 mg/dL (1.5-2.5) 05/04/18 05:45 Total Bilirubin 1.5 mg/dL (0.2-1.0) H 05/04/18 05:45 AST 3620 U/L (15-37) H 05/04/18 05:45 ALT 1462 U/L (12-78) H 05/04/18 05:45 Alkaline Phosphatase 249 U/L (45-117) H 05/04/18 05:45 Ammonia 54 mcmol/L (11-32) H 05/03/18 23:45 Lactate Dehydrogenase 2830 U/L (87-241) H 05/03/18 18:36 Total Creatine Kinase 99213 U/L (39-308) H 05/03/18 23:45 CK-MB (CK-2) 71.3 ng/mL (0.5-3.6) H 05/03/18 23:45 CK-MB (CK-2) % 0.6 % (0.0-4.0) 05/03/18 23:45 Troponin I 0.53 ng/mL (0.02-0.05) H 05/03/18 23:45 Total Protein 4.8 g/dL (6.4-8.2) L D 05/04/18 05:45 Albumin 2.0 g/dL (3.4-5.0) L 05/04/18 05:45 Lipase 120 U/L (73-393) 05/03/18 15:45 TSH 0.625 uIU/mL (0.358-3.740) 05/03/18 23:45 Urine Color Kori (Yellw/Straw) 05/03/18 15:45 Urine Clarity Cloudy (Clear) H 05/03/18 15:45 Urine pH 5.0 (5.0-8.5) 05/03/18 15:45 Ur Specific [place] 1.021 (1.002-1.035) 05/03/18 15:45 Urine Protein 30 mg/dL (Neg-Trace) H 05/03/18 15:45 Urine Glucose (UA) Negative mg/dL (Negative) 05/03/18 15:45 Urine Ketones 20 mg/dL (Negative) 05/03/18 15:45 Urine Occult Blood Negative (Negative) 05/03/18 15:45 Urine Nitrate Negative (Negative) 05/03/18 15:45 Urine Bilirubin Negative (Negative) 05/03/18 15:45 Urine Urobilinogen 2.0 mg/dL (Less than 2) H 05/03/18 15:45 Ur Leukocyte Esterase Trace (Negative) H 05/03/18 15:45 Urine RBC 3 /hpf (0-3) 05/03/18 15:45 Urine WBC 8 /hpf (0-5) H 05/03/18 15:45 Ur Squamous Epith Cells <1 /hpf (0-5) 05/03/18 15:45 Urine Bacteria Rare /hpf (None) H 05/03/18 15:45 Hyaline Casts 3 /lpf (0-3) 05/03/18 15:45 Urine Mucus Few /lpf (Occasional) H 05/03/18 15:45 Micro UA Comment Cath-culture ind 05/03/18 15:45 Ur Microscopic Review Not Reportable 05/03/18 15:45 Urine Culture Comments Cath-cult indicated 05/03/18 15:45 Urine Eosinophils Rare /HPF (None Seen) H 05/04/18 05:55 Ur Random Creatinine 192 mg/dL (27-300) 05/03/18 15:45 Ur Random Sodium 64 meq/L 05/03/18 15:45 Nasal Screen MRSA (PCR) Not detected (Negative) 05/03/18 18:38 Urine Opiates Screen Neg (Neg) 05/03/18 15:45 Ur Barbiturates Screen Neg (Neg) 05/03/18 15:45 Ur Amphetamines Screen Neg (Neg) 05/03/18 15:45 U Benzodiazepines Scrn Neg (Neg) 05/03/18 15:45 Urine Cocaine Screen Neg (Neg) 05/03/18 15:45 U Cannabinoids Screen Neg (Neg) 05/03/18 15:45 Hepatitis A IgM Ab Nonreactive (Nonreactive) 05/03/18 18:36 Hep Bs Antigen Nonreactive (Nonreactive) 05/03/18 18:36 Hep B Core IgM Ab Nonreactive (Nonreactive) 05/03/18 18:36 Hep C IgG Ab Nonreactive (Nonreactive) 05/03/18 18:36 Blood Type A Positive 05/03/18 18:36 Antibody Screen Negative 05/03/18 18:36 Impressions Chest CTA 05/03/18 00:00 CONCLUSION: 1. Multiple acute displaced rib fractures bilaterally. 2. Spiculated left upper lobe mass not identified on the patient's prior chest x-ray due to technique. This is concerning for underlying malignancy. 3. Slight left lung base infiltrate. Head CT 05/03/18 15:38 CONCLUSION: Chronic small vessel ischemic and atrophic changes. Abdomen/Pelvis CT 05/03/18 16:39 CONCLUSION: Cholelithiasis and fatty liver. Chest X-Ray 05/04/18 06:00 CONCLUSION: The lungs are clear. Lines and tubes stable. Objective Remarks: GENERAL: This is a well-developed well-nourished male intubated and sedated with muscle paralysis SKIN: Warm and dry. HEAD: Atraumatic. Normocephalic. EYES: Pupils equal and round. No scleral icterus. No injection or drainage. ENT: No nasal bleeding or discharge. Mucous membranes pink and moist. NECK: Trachea midline. No JVD. CARDIOVASCULAR: Normal rate, regular rhythm. RESPIRATORY: No accessory muscle use. Clear to auscultation. Breath sounds equal bilaterally. GASTROINTESTINAL: Abdomen soft, non-tender, nondistended. No guarding. MUSCULOSKELETAL: Extremities without clubbing, cyanosis, or edema. No obvious deformities. NEUROLOGICAL: GCS 3 T. Intubated and sedated, with muscle relaxation. Prior to hypothermia protocol was noted to have myoclonus. Procedures: 05/03-right femoral A-line 05/03-right femoral cooling catheter 05/03-right internal jugular Assessment and Plan - Problem List (1) Lactic acidosis Code(s): E87.2 - Acidosis Status: Acute (2) Acute kidney injury Code(s): N17.9 - Acute kidney failure, unspecified Status: Acute (3) Elevated levels of transaminase & lactic acid dehydrogenase Code(s): R74.0 - Nonspecific elevation of levels of transaminase and lactic acid dehydrogenase [LDH] Status: Acute (4) Hypoalbuminemia Code(s): E88.09 - Other disorders of plasma-protein metabolism, not elsewhere classified Status: Acute (5) Macrocytic anemia Code(s): D53.9 - Nutritional anemia, unspecified Status: Acute (6) Influenza A Code(s): J10.1 - Influenza due to other identified influenza virus with other respiratory manifestations Status: Acute (7) History of essential hypertension Code(s): Z86.79 - Personal history of other diseases of the circulatory system Status: Acute (8) History of COPD Code(s): Z87.09 - Personal history of other diseases of the respiratory system Status: Acute (9) Elevated troponin Code(s): R74.8 - Abnormal levels of other serum enzymes Status: Acute (10) Acute respiratory failure Code(s): J96.00 - Acute respiratory failure, unspecified whether with hypoxia or hypercapnia Status: Acute (11) Cardiac arrest Code(s): I46.9 - Cardiac arrest, cause unspecified Status: Acute (12) Cholelithiasis Code(s): K80.20 - Calculus of gallbladder without cholecystitis without obstruction Status: Acute (13) Rib fractures Code(s): S22.39XA - Fracture of one rib, unspecified side, initial encounter for closed fracture Status: Acute - Assessment and Plan Plan: Neuro/Psych: Acute encephalopathy possible anoxic Propofol/fentanyl drips for sedation/analgesia while intubated Goal of RASS -2 Daily sedation vacation Check EEG upon rewarming followed by Neuro consult if required CT brain small vessel ischemic changes Vit bag daily x3 days CV: Out of hospital cardiac arrest initial rhythm asystole History of essential hypertension Lactic acidosis Elevated troponin B/l rib fx Evaluated by Dr. Montiel in the ED/cardiology. No intervention planned at this time. Will start aspirin 162 mg now then 81 mg daily/carvedilol 3.125 mg BID Hep infusion MT protocol no lipid-lowering agents secondary to elevated transaminases Patient is on enalapril 5 mg daily at home. Holding RIVAS inhibitor in light of elevated creatinine Serial lactates until cleared Troponins every 6 hours x2 until downtrending, currently trending upward 0.06-> 0.2->0.53 F/U 2D echocardiogram ordered Resp: Acute respiratory failure History of COPD ABRAHAM lung mass - W/u if indicated PRVC ventilation Ventilator bundle Albuterol/ipratropium aerosols every 4 hours with albuterol every 2 hours as needed dyspnea Spontaneous breathing trials when clinically indicated Follow-up a.m. ABG and chest x-ray Patient is on tiotropium 18 mg inhaled daily and montelukast 10 mg daily and mometasone/formoterol 200 mg / [address] pulmonary angiogram b/l rib fx, REZA spiculated mass. No central PE GI: Elevated transaminases Hypoalbuminemia Cholelithiasis hepatic steatosis Orogastric tube to low intermittent wall suction Pantoprazole for GI prophylaxis Docusate serum/senna 1 tablet twice daily for bowel regimen Check hepatitis panel CT abdomen/pelvis cholelithiasis and hepatic steatosis : Straight catheterization as needed. Endo: Acute hyperglycemia Sliding scale insulin with aspart insulin with Accu-Cheks every 6 hours to maintain euglycemia/medium protocol TSH-WNL Renal: Acute kidney injury Nephrotoxic medication Monitor urine output Accurate I's and O's Check urine eosinophils, sodium and creatinine Follow BMP in a.m. 18 F/U CT abdomen/pelvis- hydronephrosis Heme: Macrocytic anemia Elevated PTT Monitor CBC daily. Follow trends No indication for transfusion of blood products at this time. Check CBC and coags in a.m. heparin protocol ID: Influenza A positive Started oseltamivir 30 mg twice daily cystitis/renal dosage Cultures x2 ordered 05/03. Results pending MSK: Physical therapy evaluate and treat FEN: Replace electrolytes as clinically indicated Currently on normal saline 84 cc an hour Access -Utilize peripheral IV. 05/04 Right IJ CVL day #2 placed by ED Prophylaxis -GI -pantoprazole -DVT -SCD/hep gtt My billing statement This patient remains critically ill with one or more organ systems which are or may become a threat to life. I have spent in excess of 39 minutes discontinuously in the care and management of this patient. This time is exclusive of procedures, and includes, but is not limited to, evaluation of the patient, review of the medical record, discussions with family, consultants, nursing staff, or respiratory therapy, and documentation in the medical record. Code Status: Full Discussed Condition With: No family at bedside. Discussed with [facility] at bedside (10) Acute respiratory failure Qualifiers: Respiratory failure complication: hypoxia and hypercapnia Qualified Code(s): J96.01 - Acute respiratory failure with hypoxia; J96.02 - Acute respiratory failure with hypercapnia (12) Cholelithiasis Qualifiers: Cholelithiasis location: gallbladder Cholecystitis presence: without cholecystitis Biliary obstruction: without biliary obstruction Qualified Code( s): K80.20 - Calculus of gallbladder without cholecystitis without obstruction (13) Rib fractures Qualifiers: Encounter type: initial encounter Rib fracture type: multiple ribs Fracture type: closed Laterality: bilateral Qualified Code(s): S22.43XA - Multiple fractures of ribs, bilateral, initial encounter for closed fracture
[2018-05-04] MEDS ORDERED: Sodium Bicarbonate 8.4% Inj 50 MEQ/50 ML Syringe IV.PUSH ONE (09:00)
[2018-05-04] MEDS ORDERED: Ascorbic Acid 500 MG Tablet PO SCH (09:00)
[2018-05-04] MEDS ORDERED: Pantoprazole Inj 40 MG Vial IV.PUSH SCH (09:00)
[2018-05-04] MEDS: Sodium Bicarbonate 8.4% Inj 150 MEQ in Dextrose 5% in Water Inj 850 ML IV.CONT SCH ×2 (09:51)
--- NOTE | 2018-05-04 10:55 | P.CONPAL ---
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 Lymphocytes % (Manual) Monocytes % (Manual) Metamyelocytes % (Man) Myelocytes % (Man) Promyelocytes % (Man) Abs Neuts (Manual) Differential Comment Toxic Granulation Dohle Bodies Platelet Estimate Platelet Morphology PT INR APTT 59.7 H D Fibrinogen Puncture Site Art line Patient Temperature 98.6 O2 Saturation 98 ABG pH 7.20 L* ABG pCO2 46 H ABG pO2 377 H ABG HCO3 17 L ABG O2 Content 19.7 ABG Base Excess -9.7 L ABG Methemoglobin 1.5 Micah Test Hemoglobin 13.7 Carboxyhemoglobin 0.1 O2 Delivery Device Ventilator Vent Setting Ac 24, vt 550,peep 5 Inspired O2 100 Critical Value Yes Sodium Potassium Chloride Carbon Dioxide Anion Gap BUN Creatinine Estimated GFR POC Glucose Random Glucose Lactic Acid 4.3 H* Calcium Calcium Adj for Albumin Phosphorus Magnesium Total Bilirubin AST ALT Alkaline Phosphatase Ammonia Lactate Dehydrogenase Total Creatine Kinase CK-MB (CK-2) CK-MB (CK-2) % Troponin I Total Protein Albumin Lipase TSH Urine Color Urine Clarity Urine pH Ur Specific [place] Urine Protein Urine Glucose (UA) Urine Ketones Urine Occult Blood Urine Nitrate Urine Bilirubin Urine Urobilinogen Ur Leukocyte Esterase Urine RBC Urine WBC Ur Squamous Epith Cells Urine Bacteria Hyaline Casts Urine Mucus Micro UA Comment Ur Microscopic Review Urine Culture Comments Urine Eosinophils Ur Random Creatinine Ur Random Sodium Nasal Screen MRSA (PCR) Urine Opiates Screen Ur Barbiturates Screen Ur Amphetamines Screen U Benzodiazepines Scrn Urine Cocaine Screen U Cannabinoids Screen Hepatitis A IgM Ab Hep Bs Antigen Hep B Core IgM Ab Hep C IgG Ab Blood Type Antibody Screen 05/03/18 05/03/18 05/03/18 23:45 23:45 23:53 WBC RBC Hgb Hct MCV MCH MCHC RDW Plt Count MPV Prelim Diff (Auto) Neut % (Auto) Lymph % (Auto) [place] % (Auto) Eos % (Auto) Baso % (Auto) Neut # (Auto) Lymph # (Auto) [place] # (Auto) Eos # (Auto) Baso # (Auto) WBC Differential Seg Neuts % (Manual) Band Neuts % (Manual) Lymphocytes % (Manual) Monocytes % (Manual) Metamyelocytes % (Man) Myelocytes % (Man) Promyelocytes % (Man) Abs Neuts (Manual) Differential Comment Toxic Granulation Dohle Bodies Platelet Estimate Platelet Morphology PT INR APTT Fibrinogen Puncture Site Patient Temperature O2 Saturation ABG pH ABG pCO2 ABG pO2 ABG HCO3 ABG O2 Content ABG Base Excess ABG Methemoglobin Micah Test Hemoglobin Carboxyhemoglobin O2 Delivery Device Vent Setting Inspired O2 Critical Value Sodium 143 Potassium 5.5 H Chloride 113 H Carbon Dioxide 17.8 L Anion Gap 12 BUN 31 H Creatinine 2.31 H Estimated GFR 28 L POC Glucose 119 H Random Glucose 117 H Lactic Acid Calcium 6.4 L* D Calcium Adj for Albumin 7.8 L Phosphorus Magnesium 1.9 Total Bilirubin AST ALT Alkaline Phosphatase Ammonia 54 H Lactate Dehydrogenase Total Creatine Kinase 07577 H CK-MB (CK-2) 71.3 H CK-MB (CK-2) % 0.6 Troponin I 0.53 H Total Protein Albumin 2.2 L Lipase TSH 0.625 Urine Color Urine Clarity Urine pH Ur Specific [place] Urine Protein Urine Glucose (UA) Urine Ketones Urine Occult Blood Urine Nitrate Urine Bilirubin Urine Urobilinogen Ur Leukocyte Esterase Urine RBC Urine WBC Ur Squamous Epith Cells Urine Bacteria Hyaline Casts Urine Mucus Micro UA Comment Ur Microscopic Review Urine Culture Comments Urine Eosinophils Ur Random Creatinine Ur Random Sodium Nasal Screen MRSA (PCR) Urine Opiates Screen Ur Barbiturates Screen Ur Amphetamines Screen U Benzodiazepines Scrn Urine Cocaine Screen U Cannabinoids Screen Hepatitis A IgM Ab Hep Bs Antigen Hep B Core IgM Ab Hep C IgG Ab Blood Type Antibody Screen 05/04/18 05/04/18 05/04/18 05:24 05:45 05:45 WBC 10.9 RBC 4.08 L Hgb 14.3 Hct 42.1 MCV 103.4 H MCH 35.1 H MCHC 33.9 RDW 14.2 Plt Count 199 MPV 8.5 Prelim Diff (Auto) Neut % (Auto) 80.9 H Lymph % (Auto) 17.8 [place] % (Auto) 1.1 Eos % (Auto) 0.1 Baso % (Auto) 0.1 Neut # (Auto) 8.8 H Lymph # (Auto) 1.9 [place] # (Auto) 0.1 Eos # (Auto) 0.0 Baso # (Auto) 0.0 WBC Differential . Seg Neuts % (Manual) Band Neuts % (Manual) Lymphocytes % (Manual) Monocytes % (Manual) Metamyelocytes % (Man) Myelocytes % (Man) Promyelocytes % (Man) Abs Neuts (Manual) Differential Comment Auto diff final Toxic Granulation Dohle Bodies Platelet Estimate Platelet Morphology PT 17.7 H INR 1.7 APTT 174.6 H* D Fibrinogen 200 L Puncture Site Art line Patient Temperature 98.6 O2 Saturation 95 ABG pH 7.18 L* ABG pCO2 42 ABG pO2 111 ABG HCO3 15 L* ABG O2 Content 18.7 ABG Base Excess -12.0 L ABG Methemoglobin 1.5 Micah Test Hemoglobin 13.9 Carboxyhemoglobin 0.1 O2 Delivery Device Ventilator Vent Setting Ac 24 vt 550 Inspired O2 60 Critical Value Yes Sodium Potassium Chloride Carbon Dioxide Anion Gap BUN Creatinine Estimated GFR POC Glucose Random Glucose Lactic Acid Calcium Calcium Adj for Albumin Phosphorus Magnesium Total Bilirubin AST ALT Alkaline Phosphatase Ammonia Lactate Dehydrogenase Total Creatine Kinase CK-MB (CK-2) CK-MB (CK-2) % Troponin I Total Protein Albumin Lipase TSH Urine Color Urine Clarity Urine pH Ur Specific [place] Urine Protein Urine Glucose (UA) Urine Ketones Urine Occult Blood Urine Nitrate Urine Bilirubin Urine Urobilinogen Ur Leukocyte Esterase Urine RBC Urine WBC Ur Squamous Epith Cells Urine Bacteria Hyaline Casts Urine Mucus Micro UA Comment Ur Microscopic Review Urine Culture Comments Urine Eosinophils Ur Random Creatinine Ur Random Sodium Nasal Screen MRSA (PCR) Urine Opiates Screen Ur Barbiturates Screen Ur Amphetamines Screen U Benzodiazepines Scrn Urine Cocaine Screen U Cannabinoids Screen Hepatitis A IgM Ab Hep Bs Antigen Hep B Core IgM Ab Hep C IgG Ab Blood Type Antibody Screen 05/04/18 05/04/18 05/04/18 05:45 05:45 05:55 WBC RBC Hgb Hct MCV MCH MCHC RDW Plt Count MPV Prelim Diff (Auto) Neut % (Auto) Lymph % (Auto) [place] % (Auto) Eos % (Auto) Baso % (Auto) Neut # (Auto) Lymph # (Auto) [place] # (Auto) Eos # (Auto) Baso # (Auto) WBC Differential Seg Neuts % (Manual) Band Neuts % (Manual) Lymphocytes % (Manual) Monocytes % (Manual) Metamyelocytes % (Man) Myelocytes % (Man) Promyelocytes % (Man) Abs Neuts (Manual) Differential Comment Toxic Granulation Dohle Bodies Platelet Estimate Platelet Morphology PT INR APTT Fibrinogen Puncture Site Patient Temperature O2 Saturation ABG pH ABG pCO2 ABG pO2 ABG HCO3 ABG O2 Content ABG Base Excess ABG Methemoglobin Micah Test Hemoglobin Carboxyhemoglobin O2 Delivery Device Vent Setting Inspired O2 Critical Value Sodium 142 Potassium 3.9 D Chloride 111 H Carbon Dioxide 16.8 L Anion Gap 14 BUN 35 H Creatinine 2.78 H Estimated GFR 23 L POC Glucose Random Glucose 221 H D Lactic Acid 6.0 H* Calcium 6.3 L* Calcium Adj for Albumin 7.9 L Phosphorus 6.0 H D Magnesium 1.9 Total Bilirubin 1.5 H AST 3620 H ALT 1462 H Alkaline Phosphatase 249 H Ammonia Lactate Dehydrogenase Total Creatine Kinase CK-MB (CK-2) CK-MB (CK-2) % Troponin I Total Protein 4.8 L D Albumin 2.0 L Lipase TSH Urine Color Urine Clarity Urine pH Ur Specific [place] Urine Protein Urine Glucose (UA) Urine Ketones Urine Occult Blood Urine Nitrate Urine Bilirubin Urine Urobilinogen Ur Leukocyte Esterase Urine RBC Urine WBC Ur Squamous Epith Cells Urine Bacteria Hyaline Casts Urine Mucus Micro UA Comment Ur Microscopic Review Urine Culture Comments Urine Eosinophils Rare H Ur Random Creatinine Ur Random Sodium Nasal Screen MRSA (PCR) Urine Opiates Screen Ur Barbiturates Screen Ur Amphetamines Screen U Benzodiazepines Scrn Urine Cocaine Screen U Cannabinoids Screen Hepatitis A IgM Ab Hep Bs Antigen Hep B Core IgM Ab Hep C IgG Ab Blood Type Antibody Screen 05/04/18 05/04/18 05:58 09:00 WBC RBC Hgb Hct MCV MCH MCHC RDW Plt Count MPV Prelim Diff (Auto) Neut % (Auto) Lymph % (Auto) [place] % (Auto) Eos % (Auto) Baso % (Auto) Neut # (Auto) Lymph # (Auto) [place] # (Auto) Eos # (Auto) Baso # (Auto) WBC Differential Seg Neuts % (Manual) Band Neuts % (Manual) Lymphocytes % (Manual) Monocytes % (Manual) Metamyelocytes % (Man) Myelocytes % (Man) Promyelocytes % (Man) Abs Neuts (Manual) Differential Comment Toxic Granulation Dohle Bodies Platelet Estimate Platelet Morphology PT INR APTT 114.7 H* D Fibrinogen Puncture Site Patient Temperature O2 Saturation ABG pH ABG pCO2 ABG pO2 ABG HCO3 ABG O2 Content ABG Base Excess ABG Methemoglobin Micah Test Hemoglobin Carboxyhemoglobin O2 Delivery Device Vent Setting Inspired O2 Critical Value Sodium Potassium Chloride Carbon Dioxide Anion Gap BUN Creatinine Estimated GFR POC Glucose 202 H Random Glucose Lactic Acid Calcium Calcium Adj for Albumin Phosphorus Magnesium Total Bilirubin AST ALT Alkaline Phosphatase Ammonia Lactate Dehydrogenase Total Creatine Kinase CK-MB (CK-2) CK-MB (CK-2) % Troponin I Total Protein Albumin Lipase TSH Urine Color Urine Clarity Urine pH Ur Specific [place] Urine Protein Urine Glucose (UA) Urine Ketones Urine Occult Blood Urine Nitrate Urine Bilirubin Urine Urobilinogen Ur Leukocyte Esterase Urine RBC Urine WBC Ur Squamous Epith Cells Urine Bacteria Hyaline Casts Urine Mucus Micro UA Comment Ur Microscopic Review Urine Culture Comments Urine Eosinophils Ur Random Creatinine Ur Random Sodium Nasal Screen MRSA (PCR) Urine Opiates Screen Ur Barbiturates Screen Ur Amphetamines Screen U Benzodiazepines Scrn Urine Cocaine Screen U Cannabinoids Screen Hepatitis A IgM Ab Hep Bs Antigen Hep B Core IgM Ab Hep C IgG Ab Blood Type Antibody Screen Result Diagrams: 05/04/18 05:45 05/04/18 11:20 Microbiology: Microbiology 05/03/18 15:50 Influenza Types A,B Antigen - Final Nasal Wash Positive for Flu A Antigen Patient/Family Conference Issues Discussed: * Palliative care role, purpose, approach * Additional medical, psychosocial, and spiritual history * Patients general health, functional status, and cognitive changes in the months leading up to the current hospitalization * Patient/family understanding of the current medical problems * Patient/family understanding of prognosis * Patients goals of care as best understood from advance directives and/or conversations and/or values * Current medical treatment options and benefits/burdens of those options * Likely scenarios comparing ongoing aggressive care with a transition to comfort measures only * Questions answered to the best of my ability * Palliative care contact information provided Assessment and Plan - Disease Oriented Problem List (1) Lung mass (2) Cardiac arrest (3) Hypotension (4) Lactic acidosis (5) Acute kidney injury (6) Elevated levels of transaminase & lactic acid dehydrogenase (7) Hypoalbuminemia (8) Macrocytic anemia (9) Influenza A (10) History of essential hypertension (11) History of COPD (12) Elevated troponin (13) Acute respiratory failure (14) Rib fractures - Symptom Scale (1) Pain 0-10 Scale: Unable to quantify (2) Dyspnea 0-10 Scale: Unable to quantify Pertinent Non-Medical Issues: Psychosocial: No known social history. Spiritual: Unknown. Legal: Patient is not capacitated to make his own healthcare decisions, uncertain if he will regain capacity. Will need additional social information to determine legal proxy decision-maker. Search is pending. Ethical issues impacting care: No known concerns at this time. Important Contacts: No family or friends found or identified at this time. Prognosis: Mr. Sales is a 72-year-old male admitted post cardiac arrest, respiratory failure with myoclonic movements prior to initiation of hypothermia protocol, this can be considered a poor prognostic indicator. Will need additional information for further prognostication post rewarming. Code Status: Full Code Plan: * Patient is not capacitated to make his own healthcare decisions, uncertain if he will regain capacity. Unable to obtain additional social history given current medical condition. No record of contact information for family or friends. Unable to determine legal healthcare proxy decision-maker at this time. Will request ACCUR[employer] and internet search. * FULL CODE * Requested nursing staff obtain any names and phone numbers of any one who calls or visits. In the meantime medical team should continue aggressive care including FULL CODE until legal decision maker can be identified, will also need to await for additional prognostic information once patient has been rewarmed. * SYMPTOMS: Pain and dyspnea: Unable to determine at this time patient is sedated and paralyzed. We will continue to monitor and make recommendations as needed. No new medication recommendations at this time. * Palliative care will continue to follow throughout hospital course to assist with symptom management and clarification of goals of medical treatment once healthcare proxy decision maker has been identified. Appreciation Thank you for the opportunity to participate in the care of Edward Sales. Attestation Attestation: To help prompt me to consider important information that might be impacting today's encounter and assessment, information from prior notes written by myself or my colleagues may have been "brought forward" into today's note. My signature on this note, however, is an attestation that I personally performed the exam, history, and/or decision-making noted today, and, unless otherwise indicated, the interactions with patient, family, and staff as well as the review of records all occurred today. I also attest that the listed assessment and stated plan reflect my best clinical judgment today based on the combination of historical information, prior notes, and today's exam/ interactions. When time spent is documented, it refers only to time spent today by the signer, or if indicated, combined time spent today by collaborating physician/nurse practitioner.
[2018-05-04 12:09] LABS: Carbon Dioxide 19.5 meq/L (21.0-32.0); Magnesium 1.9 mg/dL (1.5-2.5); Potassium 3.2 meq/L (3.5-5.1)
[2018-05-04 12:16] LABS: Albumin 1.9 g/dL (3.4-5.0); Calcium-Albumin Corrected 7.7 mg/dL (8.5-10.1)
[2018-05-04 12:57] LABS: ABG Base Excess -8.9 mmol/L (-2-2); ABG PCO2 46 mmHg (38-42); ABG PO2 90 mmHG (61-120)
--- NOTE | 2018-05-04 13:56 | P.PNPAL ---
Palliative care attempting to locate patient's next of kin and assist with identifying legal healthcare proxy decision maker. Accur[employer] request. Spoke with CM and requested contact to [facility] to inquire about patient's past visit (PCP provider, next of kin information, etc). Unable to locate match on social media to identify family. Google search produced following results: * Roseann Sales-- * Thad Sales -- * Tomas Sales --[phone] (rings) [phone] (rings) [phone] ( wrong number) * Migdalia Sales -- [phone] (rings) [phone] (fax number) [phone] (wrong number) * Unable to find possible social media matches to above without additional information. Awaiting accurint and CM results with [facility]. Palliative care will continue to follow throughout hospitalization.
[2018-05-04] MEDS: SODIUM BICARBONATE IV.CONT SCH (16:13)
[2018-05-04] MEDS: SODIUM CHLORIDE 0.45% IV.CONT SCH (16:13)
[2018-05-04] MEDS: Multivitamin Inj 10 ML, Thiamine Inj 100 MG, Folic Acid Inj 1 MG in Sodium Chlor 0.9% I... IV.SIG SCH (17:07)
--- NOTE | 2018-05-04 17:48 | ECHRPT ---
Indication: heart failure CONCLUSIONS The left ventricle is not well visualized. Normal left ventricular size. Wall thickness is measured at the upper limits of normal. The left ventricular systolic function is grossly normal on limited imaging. The estimated pulmonary arterial pressure is 19 mmHg. BP: / HR: Rhythm: MEASUREMENTS (Male / Female) Normal Values Technical Quality:Very technically difficult study 2D ECHO LV Diastolic Diameter PLAX 2.8 cm 4.2 - 5.9 / 3.9 - 5.3 cm LV Systolic Diameter PLAX 2.6 cm IVS Diastolic Thickness 1.6 cm 0.6 - 1.0 / 0.6 - 0.9 cm LVPW Diastolic Thickness 1.4 cm 0.6 - 1.0 / 0.6 - 0.9 cm LV Relative Wall Thickness 1.1 RV Internal Dim ED PLAX 3.8 cm DOPPLER TR Peak Velocity 151.0 cm/s TR Peak Gradient 9.1 mmHg Right Atrial Pressure 10.0 mmHg Pulmonary Artery Systolic Pressu 19.1 mmHg Right Ventricular Systolic Press 19.1 mmHg PV Peak Velocity 82.8 cm/s PV Peak Gradient 2.7 mmHg FINDINGS LEFT VENTRICLE The left ventricle is not well visualized. Normal left ventricular size. Wall thickness is measured at the upper limits of normal. The left ventricular systolic function is grossly normal on limited imaging. RIGHT VENTRICLE Normal right ventricular size and systolic function. LEFT ATRIUM The left atrial size is normal. RIGHT ATRIUM The right atrial size is normal. ATRIAL SEPTUM Normal atrial septal thickness without atrial level shunting by limited color doppler interrogation. AORTA The aortic root and proximal ascending aorta are normal in size on limited imaging. MITRAL VALVE Structurally normal mitral valve. No mitral valve stenosis or regurgitation. AORTIC VALVE Trileaflet aortic valve. No aortic valve stenosis or regurgitation. TRICUSPID VALVE The estimated pulmonary arterial pressure is 19 mmHg. PULMONARY VALVE No pulmonary valve regurgitation or stenosis. VESSELS The inferior vena cava is normal in size. PERICARDIUM No pericardial effusion. Negrito Love MD, FACC (Electronically Signed) Final Date:04 May 2018 17:48
[2018-05-04 19:00] LABS: Calcium 5.7 mg/dL (8.5-10.1); Carbon Dioxide 20.8 meq/L (21.0-32.0); Magnesium 1.8 mg/dL (1.5-2.5)
[2018-05-04] MEDS ORDERED: Vasopressin Inj 40 UNIT in Dextrose 5% in Water Inj 98 ML IV.CONT SCH ×2 (19:00)
[2018-05-04 19:12] LABS: Potassium 2.8 meq/L (3.5-5.1)
[2018-05-04 19:25] LABS: Albumin 1.7 g/dL (3.4-5.0); Calcium-Albumin Corrected 7.5 mg/dL (8.5-10.1)
[2018-05-04] MEDS: Potassium Chlor 40 mEq Premix 40 MEQ/100 ML PIGGYBACK IV.SIG SCH ×2 (19:47→23:12)
[2018-05-04] MEDS ORDERED: Magnesium Sulfate Inj 2 GM in Sodium Chlor 0.9% Inj 96 ML IV.SIG ONE (20:00)
--- NOTE | 2018-05-04 21:44 | MG ---
cc: Yaya Abad MD ELECTROENCEPHALOGRAM RECORD NUMBER: [id number] DESCRIPTION: Suppression in bursts, suppression lasting 10-20 seconds. Bursts of polymorphic sharply contoured alpha activity lasting 3-4 seconds. Single-lead EKG showing sinus rhythm. INTERPRETATION: Burst suppression pattern with suppression averaging 10-20 seconds interictal. Clinical correlation. MD JOCE An/jessiac , 09:06 PM , 09:13 PM
[2018-05-04] MEDS: Propofol 1000 mg/100 ml Inj 1,000 MG/100 ML BOTTLE IV.CONT PRN (23:15)
[2018-05-05] MEDS: SODIUM CHLORIDE 0.45% IV.CONT SCH ×2 (00:28→03:37)
[2018-05-05] MEDS: SODIUM BICARBONATE IV.CONT SCH ×2 (00:28→03:37)
[2018-05-05] MEDS: Cisatracurium Inj 100 MG in Sodium Chlor 0.9% Inj 240 ML IV.CONT PRN (00:28)
[2018-05-05] MEDS: Oral Hygiene Kit OROPHARYNG SCH ×2 (00:29→03:38)
[2018-05-05] MEDS: Insulin NovoLOG Aspart Correctional Sugar Inj SQ SCH (00:42)
[2018-05-05] MEDS: Chlorhexidine Gluconate 2% 1 Pack (2 Cloths) TOPICAL SCH (03:37)
[2018-05-05 05:16] LABS: ABG Base Excess -6.6 mmol/L (-2-2); ABG PCO2 48 mmHg (38-42); ABG PO2 100 mmHG (61-120)
--- NOTE | 2018-05-05 05:34 | XR ---
EXAM DATE: 05/05/2018 5:30 AM EST AGE/SEX: 72 years / Male INDICATIONS: Short of breath. CLINICAL DATA: This is the patient's subsequent encounter. Patient reports that signs and symptoms h ave been present for 3 days and indicates a pain score of 0/10. MEDICAL/SURGICAL HISTORY: Chronic obstructive pulmonary disease. Hypertension. Non-responsive. COMPARISON: C, CHEST 1V SINGLE AP, 05/04/2018. . FINDINGS: ET tube well above the james. Gastric tube tip and side-port project within the stomach. Right inter nal jugular catheter tip in the mid superior vena cava. The lungs are symmetrically aerated and clear . No focal infiltrates seen. There is some mild peribronchial thickening noted. Infrahilar region. CONCLUSION: Interval development of peribronchial thickening in the mid and lower perihilar region suggesting pul monary interstitial edema. No focal infiltrates seen. Electronically signed by: Jose Alberto Burgos MD Board Certified Radiologist 05/05/2018 5:32 AM EST
[2018-05-05 05:35] LABS: Baso % (Auto) 0.2 % (0.0-2.0); Eos % (Auto) 0.1 % (0.0-4.0); Hematocrit 37.3 % (39.0-51.0); Hemoglobin 12.3 gm/dL (13.0-17.0); Lymph # (Auto) 0.8 th/mm3 (1.0-4.8); Lymph % (Auto) 12.7 % (9.0-44.0); Mean Corpuscular HGB Conc 32.9 % (32.0-36.0); Mean Corpuscular Hemoglobin 34.4 pg (27.0-34.0); Mean Corpuscular Volume 104.4 fL (80.0-100.0); Mono # (Auto) 0.1 th/mm3 (0.0-0.9); Mono % (Auto) 1.7 % (0.0-8.0); Neut # (Auto) 5.7 th/mm3 (1.8-7.7); Neut % (Auto) 85.3 % (16.0-70.0); Platelet Count 122 th/mm3 (150-450); Red Blood Count 3.58 mil/mm3 (4.50-5.90); Red Cell Distribution Width 14.2 % (11.6-17.2); White Blood Count 6.6 th/mm3 (4.0-11.0)
[2018-05-05] MEDS ORDERED: Calcium Chloride Inj 1 GM/10 ML Syringe IV.PUSH ONE ×3 (06:25→09:00)
[2018-05-05] MEDS ORDERED: Phenylephrine Inj 80 MG in Dextrose 5% in Water Inj 492 ML IV.CONT PRN ×2 (06:26)
[2018-05-05] MEDS ORDERED: Calcium Chloride Inj 1 GM/10 ML Syringe ONE (06:26)
[2018-05-05 06:53] LABS: Lymphocytes 5 % (9-44); Metamyelocytes 4 % (0-1); Monocytes 2 % (0-8); Platelet Morphology Normal (Normal); Tallied Nucleated RBC 1 (0-0)
[2018-05-05 06:54] LABS: Calcium 5.5 mg/dL (8.5-10.1); Carbon Dioxide 17.5 meq/L (21.0-32.0); Magnesium 3.2 mg/dL (1.5-2.5)
[2018-05-05 06:58] LABS: Potassium 9.3 meq/L (3.5-5.1)
--- NOTE | 2018-05-05 06:59 | P.PNCC ---
Subjective Subjective Remarks/Hospital Course: 05/04: The patient continues on hypothermia protocol with muscle relaxation provided by cisatracurium infusion, and low-dose propofol infusion. Overnight the patient required initiation of Levophed currently at 2 mics per minute. Lab results reviewed this a.m. showed a severe acidosis despite being on sodium bicarbonate infusion at 84 cc/an hour. Additional dosing of sodium bicarbonate provided, infusion increased. Repeat EKG revealed prolongation of QT interval we will continue to monitor. 05/05: Upon arrival this a.m., performing evaluation of patient lab results initially showed a potassium of 2.8 at 6 AM repeat BMP of < 30-minutes was performed and revealed a potassium of 8.5 a glucose of 12 and a calcium of 5.6 . 1 g of calcium chloride IV push was given repeat labs were performed and are now pending. Stat EKG was obtained showing sinus rhythm with first-degree AV block, and inferior infarct. Left IJ Vas-Cath emergently placed. Nephrology stat consulted, spoke with Dr. Holland plan for emergent hemodialysis. The patient was noted to have a significantly elevated ammonia level of 368, and lactate level of 18.3 noted abdomen distended and mottled. Patient noted to be unable to clear lactate, concerning for hepatic injury versus shock liver secondary to cardiac arrest. Ultrasound of the abdomen is pending, heparin has been placed on hold the patient remains therapeutic. In the last 24 hours as rewarming continued vasopressors have been added to include phenylephrine and vasopressin. The patient continues to be hemodynamically unstable, chest x-ray now revealing pulmonary edema. Rewarming has been held, the elevation in potassium. Patient's temperature is 34.2. Objective Vital Signs / I&O: Vital Signs 05/04/18 07:00 05/04/18 07:15 05/04/18 07:30 Temperature 91.4 F L 91.4 F L 91.4 F L Pulse Rate 81 82 81 Respiratory Rate 24 24 24 Blood Pressure 110/68 Pulse Oximetry 90 L 92 L 88 L 05/04/18 07:45 05/04/18 07:51 05/04/18 08:00 Temperature 91.4 F L 91.4 F L Pulse Rate 80 80 Respiratory Rate 24 24 24 Blood Pressure 91/59 L Pulse Oximetry 82 L 85 L 82 L 05/04/18 08:01 05/04/18 08:15 05/04/18 08:30 Temperature 91.4 F L 91.2 F L 91.2 F L Pulse Rate 79 79 82 Respiratory Rate 24 24 24 Blood Pressure 91/59 L Pulse Oximetry 84 L 96 97 05/04/18 08:45 05/04/18 09:00 05/04/18 09:15 Temperature 91.2 F L 91.2 F L 91.2 F L Pulse Rate 82 84 88 Respiratory Rate 24 24 24 Blood Pressure 94/65 L Pulse Oximetry 97 05/04/18 09:30 05/04/18 09:45 05/04/18 10:00 Temperature 91.2 F L 91.2 F L 91.2 F L Pulse Rate 90 87 87 Respiratory Rate 22 24 24 Blood Pressure 89/58 L Pulse Oximetry 98 96 95 05/04/18 10:15 05/04/18 10:30 05/04/18 10:45 Temperature 91.2 F L 91.2 F L 91.2 F L Pulse Rate 86 87 89 Respiratory Rate 24 24 24 Blood Pressure Pulse Oximetry 95 96 95 05/04/18 11:00 05/04/18 11:15 05/04/18 11:30 Temperature 91.4 F L 91.4 F L 91.4 F L Pulse Rate 87 86 88 Respiratory Rate 24 24 24 Blood Pressure 91/69 L Pulse Oximetry 96 95 97 05/04/18 11:45 05/04/18 11:47 05/04/18 12:00 Temperature 91.4 F L 91.4 F L Pulse Rate 88 90 Respiratory Rate 24 24 24 Blood Pressure 85/61 L Pulse Oximetry 96 96 97 05/04/18 12:01 05/04/18 12:15 05/04/18 12:30 Temperature 91.4 F L 91.4 F L 91.4 F L Pulse Rate 90 91 H 90 Respiratory Rate 24 24 24 Blood Pressure 85/61 L Pulse Oximetry 96 97 97 05/04/18 12:45 05/04/18 13:00 05/04/18 13:15 Temperature 91.4 F L 91.4 F L 91.4 F L Pulse Rate 91 H 92 H 92 H Respiratory Rate 24 24 24 Blood Pressure 88/68 L Pulse Oximetry 98 99 100 05/04/18 13:30 05/04/18 13:45 05/04/18 14:00 Temperature 91.6 F L 91.6 F L 91.6 F L Pulse Rate 91 H 90 88 Respiratory Rate 24 24 24 Blood Pressure Pulse Oximetry 100 99 99 05/04/18 14:01 05/04/18 14:15 05/04/18 14:28 Temperature 91.6 F L 91.4 F L 91.4 F L Pulse Rate 87 87 86 Respiratory Rate 24 24 24 Blood Pressure 115/59 L 91/59 L Pulse Oximetry 99 98 98 05/04/18 14:30 05/04/18 14:45 05/04/18 15:00 Temperature 91.4 F L 91.2 F L 91.0 F L Pulse Rate 87 87 91 H Respiratory Rate 24 24 24 Blood Pressure 95/67 L Pulse Oximetry 97 98 99 05/04/18 15:15 05/04/18 15:28 05/04/18 15:30 Temperature 91.0 F L 91.2 F L Pulse Rate 92 H 91 H Respiratory Rate 24 24 24 Blood Pressure Pulse Oximetry 99 98 98 05/04/18 15:45 05/04/18 16:00 05/04/18 16:15 Temperature 91.4 F L 91.4 F L 91.4 F L Pulse Rate 90 91 H 89 Respiratory Rate 24 24 23 Blood Pressure 86/64 L Pulse Oximetry 98 97 96 05/04/18 16:30 05/04/18 16:45 05/04/18 17:00 Temperature 91.4 F L 91.4 F L 91.2 F L Pulse Rate 89 90 90 Respiratory Rate 24 16 24 Blood Pressure 87/55 L Pulse Oximetry 95 93 L 95 05/04/18 17:15 05/04/18 17:30 05/04/18 17:45 Temperature 91.0 F L 91.0 F L 91.0 F L Pulse Rate 90 91 H 92 H Respiratory Rate 24 24 24 Blood Pressure Pulse Oximetry 96 96 96 05/04/18 18:00 05/04/18 18:15 05/04/18 18:30 Temperature 91.2 F L 91.2 F L 91.4 F L Pulse Rate 91 H 92 H 90 Respiratory Rate 24 24 24 Blood Pressure 81/51 L Pulse Oximetry 97 97 96 05/04/18 18:45 05/04/18 19:00 05/04/18 19:01 Temperature 91.4 F L 91.2 F L 91.2 F L Pulse Rate 89 77 78 Respiratory Rate 24 24 24 Blood Pressure 86/51 L Pulse Oximetry 96 95 95 05/04/18 19:15 05/04/18 19:30 05/04/18 19:35 Temperature 91.2 F L 91.2 F L Pulse Rate 79 79 79 Respiratory Rate 24 24 24 Blood Pressure Pulse Oximetry 95 98 98 05/04/18 19:45 05/04/18 20:00 05/04/18 20:04 Temperature 91.0 F L 91.2 F L 91.2 F L Pulse Rate 80 81 80 Respiratory Rate 24 24 24 Blood Pressure 97/63 L 104/59 L Pulse Oximetry 100 96 96 05/04/18 20:15 05/04/18 20:30 05/04/18 20:45 Temperature 91.2 F L 91.2 F L 91.2 F L Pulse Rate 80 80 89 Respiratory Rate 24 24 24 Blood Pressure Pulse Oximetry 96 95 94 L 05/04/18 21:00 05/04/18 21:02 05/04/18 21:15 Temperature 91.2 F L 91.2 F L 91.2 F L Pulse Rate 91 H 91 H 88 Respiratory Rate 24 24 24 Blood Pressure 124/83 Pulse Oximetry 94 L 91 L 75 L 05/04/18 21:30 05/04/18 21:45 05/04/18 22:00 Temperature 91.0 F L 91.0 F L 91.0 F L Pulse Rate 89 91 H 92 H Respiratory Rate 24 24 24 Blood Pressure 124/85 Pulse Oximetry 74 L 73 L 74 L 05/04/18 22:07 05/04/18 22:15 05/04/18 22:30 Temperature 91.0 F L 91.0 F L Pulse Rate 91 H 78 79 Respiratory Rate 24 24 Blood Pressure Pulse Oximetry 74 L 72 L 05/04/18 22:45 05/04/18 23:00 05/04/18 23:15 Temperature 91.0 F L 91.4 F L 91.6 F L Pulse Rate 80 82 82 Respiratory Rate 24 24 24 Blood Pressure 114/79 Pulse Oximetry 76 L 75 L 77 L 05/04/18 23:30 05/04/18 23:45 05/05/18 00:00 Temperature 91.8 F L 92.1 F L 92.3 F L Pulse Rate 82 81 80 Respiratory Rate 24 24 24 Blood Pressure Pulse Oximetry 90 L 86 L 05/05/18 00:03 05/05/18 00:15 05/05/18 00:30 Temperature 92.3 F L 92.3 F L 92.5 F L Pulse Rate 80 77 76 Respiratory Rate 24 24 24 Blood Pressure 152/93 H Pulse Oximetry 68 L 67 L 68 L 05/05/18 00:45 05/05/18 01:00 05/05/18 01:04 Temperature 92.5 F L 92.5 F L 92.5 F L Pulse Rate 76 79 79 Respiratory Rate 24 24 24 Blood Pressure 102/66 Pulse Oximetry 66 L 64 L 93 L 05/05/18 01:15 05/05/18 01:30 05/05/18 01:45 Temperature 92.5 F L 92.5 F L 92.5 F L Pulse Rate 80 81 80 Respiratory Rate 24 24 24 Blood Pressure Pulse Oximetry 05/05/18 02:00 05/05/18 02:15 05/05/18 02:19 Temperature 92.7 F L 92.8 F L 92.8 F L Pulse Rate 77 76 76 Respiratory Rate 24 24 24 Blood Pressure 101/67 Pulse Oximetry 05/05/18 02:30 05/05/18 02:45 05/05/18 03:00 Temperature 92.8 F L 93.0 F L 93.2 F L Pulse Rate 76 76 76 Respiratory Rate 24 24 24 Blood Pressure Pulse Oximetry 05/05/18 03:15 05/05/18 03:30 05/05/18 03:45 Temperature 93.2 F L 93.4 F L 93.4 F L Pulse Rate 74 73 74 Respiratory Rate 24 24 24 Blood Pressure Pulse Oximetry 05/05/18 03:56 05/05/18 04:00 05/05/18 04:15 Temperature 93.4 F L 93.6 F L Pulse Rate 73 79 86 Respiratory Rate 24 24 24 Blood Pressure Pulse Oximetry 05/05/18 04:30 05/05/18 04:45 05/05/18 05:00 Temperature 93.6 F L 93.7 F L 93.7 F L Pulse Rate 87 78 180 H Respiratory Rate 24 24 24 Blood Pressure Pulse Oximetry 05/05/18 05:15 05/05/18 05:30 05/05/18 06:11 Temperature 93.9 F L 93.9 F L Pulse Rate 85 83 79 Respiratory Rate 24 24 Blood Pressure Pulse Oximetry Intake & Output 05/04/18 05/04/18 05/05/18 06:59 18:59 06:59 Intake Total 1776.2 / 1776.2 1922 / 1922 2641.2 / 2641.2 Output Total 415 / 415 2 / 2 223 / 223 Balance 1361.2 / 1361.2 1920 2418.2 / 2418.2 Weight 90.4 kg 96.5 kg Intake: IV 1776.2 / 1776.2 1922 / 1922 2641.2 / 2641.2 Nimbex Inj 100 MG In NS Inj 240 38 / 38 462 / 462 250 / 250 ML @ 1 MCG/KG/MIN 12.72 mls/hr IV.CONT TITRATE PRN Rx#: [id number] Heparin/D5W 25,000 U/250 mL 25, 87 / 87 000 unit In 250 ml @ Per Protocol IV.CONT TITRATE PRN Rx #:[id number] Diprivan 1000 mg/100 ml Inj 1, 26 / 26 62 / 62 000 mg In 100 ml @ 5 MCG/KG/MIN 2.545 mls/hr IV.CONT TITRATE PRN Rx#:[id number] NS Inj 1,000 ML @ 84 mls/hr IV. 463 / 463 CONT .[id number] [facility] Rx#:[id number] Sodium Bicarbonate 8.4% Inj 150 566 / 566 1134 / 1134 MEQ In D5W Inj 850 ML @ 125 mls/hr IV.CONT .Q8H [facility] Rx#: [id number] Sodium Bicarbonate 8.4% Inj 150 1150 / 1150 MEQ In 1/2 Normal Saline Inj 1 ,000 ML @ 125 mls/hr IV.CONT . Q9H12M [facility] Rx#:[id number] Magnesium Sulfate Inj 2 GM In 100 / 100 NS Inj 96 ML @ 50 mls/hr IV.SIG ONCE ONE Rx#:[id number] MVI-12 Inj 10 ML Thiamine Inj 511.2 / 511.2 511.2 / 511.2 100 MG Folvite Inj 1 MG In NS Inj 500 ML @ 125 mls/hr IV.SIG Q24H [facility] Rx#:[id number] Levophed Inj 4 MG In NS Inj 246 23 / 23 227 / 227 250 / 250 ML @ 2 MCG/MIN 7.5 mls/hr IV. SIG TITRATE PRN Rx#:[id number] KCl 40 mEq Premix Inj 40 meq In 200 / 200 100 ml @ 25 mls/hr IV.SIG Q4H [facility] Rx#:[id number] fentaNYL 10 mcg/mL Premix Drip 62 / 62 118 / 118 2,500 mcg In 250 ml @ 50 MCG/HR 5 mls/hr IV.SIG TITRATE PRN Rx #:[id number] Oral 0 / 0 Output: Urine Urine Amount (Catheter) 2 / 0 / 0 Indwelling Temp Sensing 0 / 0 Catheter Indwelling Urethral Catheter 0 / 0 Gastric Drainage 400 / 400 200 / 200 Oral Orogastric Tube 400 / 400 200 / 200 Other: Date of Last Bowel Movement 05/05/18 # Bowel Movements 0 1 Result Diagrams: 05/05/18 05:28 05/05/18 07:35 Other Results: Laboratory Results WBC 6.6 th/mm3 (4.0-11.0) 05/05/18 05:28 RBC 3.58 mil/mm3 (4.50-5.90) L 05/05/18 05:28 Hgb 12.3 gm/dL (13.0-17.0) L D 05/05/18 05:28 Hct 37.3 % (39.0-51.0) L 05/05/18 05:28 MCV 104.4 fL (80.0-100.0) H 05/05/18 05:28 MCH 34.4 pg (27.0-34.0) H 05/05/18 05:28 MCHC 32.9 % (32.0-36.0) 05/05/18 05:28 RDW 14.2 % (11.6-17.2) 05/05/18 05:28 Plt Count 122 th/mm3 (150-450) L D 05/05/18 05:28 MPV 9.0 fL (7.0-11.0) 05/05/18 05:28 Prelim Diff (Auto) Slide review pending 05/05/18 05:28 Neut % (Auto) 85.3 % (16.0-70.0) H 05/05/18 05:28 Lymph % (Auto) 12.7 % (9.0-44.0) 05/05/18 05:28 [place] % (Auto) 1.7 % (0.0-8.0) 05/05/18 05:28 Eos % (Auto) 0.1 % (0.0-4.0) 05/05/18 05:28 Baso % (Auto) 0.2 % (0.0-2.0) 05/05/18 05:28 Neut # (Auto) 5.7 th/mm3 (1.8-7.7) 05/05/18 05:28 Lymph # (Auto) 0.8 th/mm3 (1.0-4.8) L 05/05/18 05:28 [place] # (Auto) 0.1 th/mm3 (0.0-0.9) 05/05/18 05:28 Eos # (Auto) 0.0 th/mm3 (0.0-0.4) 05/05/18 05:28 Baso # (Auto) 0.0 th/mm3 (0.0-0.2) 05/05/18 05:28 WBC Differential Manual diff final 05/05/18 05:28 Seg Neuts % (Manual) 9 % (16-70) L 05/05/18 05:28 Band Neuts % (Manual) 80 % (0-6) H 05/05/18 05:28 Lymphocytes % (Manual) 5 % (9-44) L 05/05/18 05:28 Monocytes % (Manual) 2 % (0-8) 05/05/18 05:28 Metamyelocytes % (Man) 4 % (0-1) H 05/05/18 05:28 Myelocytes % (Man) 1 % (0-0) H 05/03/18 18:36 Promyelocytes % (Man) 1 % (0-0) H 05/03/18 15:45 Abs Neuts (Manual) 6.1 th/mm3 (1.8-7.7) 05/05/18 05:28 Nucleated RBCs/100 WBC 1 /100 WBC (0-0) H 05/05/18 05:28 Differential Comment . 05/05/18 05:28 Toxic Granulation 1+ (None) H 05/03/18 18:36 Dohle Bodies Present (None) H 05/03/18 18:36 Platelet Estimate Low (Normal) L 05/05/18 05:28 Platelet Morphology Normal (Normal) 05/05/18 05:28 PT 17.7 sec (9.8-11.6) H 05/04/18 05:45 INR 1.7 Ratio 05/04/18 05:45 APTT 70.7 sec (23.4-31.7) H 05/05/18 07:35 Fibrinogen 200 mg/dL (227-377) L 05/04/18 05:45 Puncture Site Art line 05/05/18 08:06 Patient Temperature 98.6 05/05/18 08:06 O2 Saturation 92 % (90-100) 05/05/18 08:06 ABG pH 7.01 (7.380-7.420) L* 05/05/18 08:06 ABG pCO2 54 mmHg (38-42) H* 05/05/18 08:06 ABG pO2 99 mmHG (61-120) 05/05/18 08:06 ABG HCO3 13 mmol/L (22-26) L* 05/05/18 08:06 ABG O2 Content 13.9 Vol % (12.0-20.0) 05/05/18 08:06 ABG Base Excess -16.4 mmol/L (-2-2) L 05/05/18 08:06 ABG Methemoglobin 1.5 % (0-2) 05/05/18 08:06 Micah Test Present 05/05/18 08:06 VBG pH 6.97 (7.360-7.400) L* 05/05/18 08:00 VBG pCO2 63 mmHG (44-48) H* 05/05/18 08:00 VBG pO2 55 mmHG (35-40) H 05/05/18 08:00 VBG HCO3 14 mmol/L (22-26) L* 05/05/18 08:00 VBG O2 Saturation 70 % (70-76) 05/05/18 08:00 VBG O2 Content 10.8 Vol % (9.0-17.0) 05/05/18 08:00 VBG Base Excess -15.8 mmol/L (-2-2) L 05/05/18 08:00 VBG Carboxyhemoglobin 0.0 % (0-4) 05/05/18 08:00 VBG Methemoglobin 1.5 % (0-2) 05/05/18 08:00 Hemoglobin 10.7 G/DL (12.0-16.0) L 05/05/18 08:06 Hemoglobin 11.1 G/DL (12.0-16.0) L 05/05/18 08:00 Carboxyhemoglobin 0.0 % (0-4) 05/05/18 08:06 O2 Delivery Device Ventilator 05/05/18 08:06 Vent Setting 05/05/18 08:06 Inspired O2 60 % 05/05/18 08:06 Critical Value Yes 05/05/18 08:06 Sodium 143 meq/L (136-145) 05/05/18 07:35 Potassium 10.1 meq/L (3.5-5.1) H* D 05/05/18 07:35 Chloride 106 meq/L (98-107) 05/05/18 07:35 Carbon Dioxide 16.7 meq/L (21.0-32.0) L 05/05/18 07:35 Anion Gap 20 meq/L (5-15) H 05/05/18 07:35 BUN 38 mg/dL (7-18) H 05/05/18 07:35 Creatinine 3.83 mg/dL (0.60-1.30) H 05/05/18 07:35 Estimated GFR 16 mL/min (>89) L 05/05/18 07:35 POC Glucose 118 mg/dl (68-110) H 05/05/18 00:38 Random Glucose 387 mg/dL (74-106) H D 05/05/18 07:35 Lactic Acid 18.3 mmol/L (0.4-2.0) H* 05/05/18 05:28 Calcium 9.0 mg/dL (8.5-10.1) D 05/05/18 07:35 Calcium Adj for Albumin 7.7 mg/dL (8.5-10.1) L 05/05/18 05:28 Phosphorus 15.5 mg/dL (2.5-4.9) H D 05/05/18 05:28 Magnesium 3.2 mg/dL (1.5-2.5) H D 05/05/18 05:28 Total Bilirubin 1.4 mg/dL (0.2-1.0) H 05/05/18 07:35 AST 7881 U/L (15-37) H 05/05/18 07:35 ALT 3887 U/L (12-78) H 05/05/18 07:35 Alkaline Phosphatase 188 U/L (45-117) H 05/05/18 07:35 Ammonia 368 mcmol/L (11-32) H 05/05/18 05:28 Lactate Dehydrogenase 2830 U/L (87-241) H 05/03/18 18:36 Total Creatine Kinase 90032 U/L (39-308) H 05/03/18 23:45 CK-MB (CK-2) 71.3 ng/mL (0.5-3.6) H 05/03/18 23:45 CK-MB (CK-2) % 0.6 % (0.0-4.0) 05/03/18 23:45 Troponin I 0.70 ng/mL (0.02-0.05) H* 05/05/18 07:35 Total Protein 2.7 g/dL (6.4-8.2) L D 05/05/18 07:35 Albumin 1.0 g/dL (3.4-5.0) L 05/05/18 07:35 Lipase 120 U/L (73-393) 05/03/18 15:45 TSH 0.625 uIU/mL (0.358-3.740) 05/03/18 23:45 Urine Color Kori (Yellw/Straw) 05/03/18 15:45 Urine Clarity Cloudy (Clear) H 05/03/18 15:45 Urine pH 5.0 (5.0-8.5) 05/03/18 15:45 Ur Specific [place] 1.021 (1.002-1.035) 05/03/18 15:45 Urine Protein 30 mg/dL (Neg-Trace) H 05/03/18 15:45 Urine Glucose (UA) Negative mg/dL (Negative) 05/03/18 15:45 Urine Ketones 20 mg/dL (Negative) 05/03/18 15:45 Urine Occult Blood Negative (Negative) 05/03/18 15:45 Urine Nitrate Negative (Negative) 05/03/18 15:45 Urine Bilirubin Negative (Negative) 05/03/18 15:45 Urine Urobilinogen 2.0 mg/dL (Less than 2) H 05/03/18 15:45 Ur Leukocyte Esterase Trace (Negative) H 05/03/18 15:45 Urine RBC 3 /hpf (0-3) 05/03/18 15:45 Urine WBC 8 /hpf (0-5) H 05/03/18 15:45 Ur Squamous Epith Cells <1 /hpf (0-5) 05/03/18 15:45 Urine Bacteria Rare /hpf (None) H 05/03/18 15:45 Hyaline Casts 3 /lpf (0-3) 05/03/18 15:45 Urine Mucus Few /lpf (Occasional) H 05/03/18 15:45 Micro UA Comment Cath-culture ind 05/03/18 15:45 Ur Microscopic Review Not Reportable 05/03/18 15:45 Urine Culture Comments Cath-cult indicated 05/03/18 15:45 Urine Eosinophils Rare /HPF (None Seen) H 05/04/18 05:55 Ur Random Creatinine 192 mg/dL (27-300) 05/03/18 15:45 Ur Random Sodium 64 meq/L 05/03/18 15:45 Nasal Screen MRSA (PCR) Not detected (Negative) 05/03/18 18:38 Urine Opiates Screen Neg (Neg) 05/03/18 15:45 Ur Barbiturates Screen Neg (Neg) 05/03/18 15:45 Ur Amphetamines Screen Neg (Neg) 05/03/18 15:45 U Benzodiazepines Scrn Neg (Neg) 05/03/18 15:45 Urine Cocaine Screen Neg (Neg) 05/03/18 15:45 U Cannabinoids Screen Neg (Neg) 05/03/18 15:45 Hepatitis A IgM Ab Nonreactive (Nonreactive) 05/03/18 18:36 Hep Bs Antigen Nonreactive (Nonreactive) 05/03/18 18:36 Hep B Core IgM Ab Nonreactive (Nonreactive) 05/03/18 18:36 Hep C IgG Ab Nonreactive (Nonreactive) 05/03/18 18:36 Blood Type A Positive 05/03/18 18:36 Antibody Screen Negative 05/03/18 18:36 Impressions Chest CTA 05/03/18 00:00 CONCLUSION: 1. Multiple acute displaced rib fractures bilaterally. 2. Spiculated left upper lobe mass not identified on the patient's prior chest x-ray due to technique. This is concerning for underlying malignancy. 3. Slight left lung base infiltrate. Head CT 05/03/18 15:38 CONCLUSION: Chronic small vessel ischemic and atrophic changes. Abdomen/Pelvis CT 05/03/18 16:39 CONCLUSION: Cholelithiasis and fatty liver. Chest X-Ray 05/05/18 04:00 CONCLUSION: Interval development of peribronchial thickening in the mid and lower perihilar region suggesting pulmonary interstitial edema. No focal infiltrates seen. Objective Remarks: GENERAL: This is a well-developed well-nourished male intubated and sedated with muscle paralysis SKIN: Cool and dry. Mottled HEAD: Atraumatic. Normocephalic. EYES: Pupils equal and round. No scleral icterus. No injection or drainage. ENT: No nasal bleeding or discharge. Mucous membranes pink and moist. NECK: Trachea midline. No JVD. CARDIOVASCULAR: Normal rate, regular rhythm. RESPIRATORY: No accessory muscle use. Clear to auscultation. Breath sounds equal bilaterally. GASTROINTESTINAL: Abdomen soft, distended. MUSCULOSKELETAL: Extremities without clubbing, cyanosis, or edema. No obvious deformities. NEUROLOGICAL: GCS 3 T. Intubated and sedated, with muscle relaxation, temp 34.2. Prior to hypothermia protocol was noted to have myoclonus. Procedures: 05/03-right femoral A-line 05/03-right femoral cooling catheter 05/03-right internal jugular 05/05 left vasc cath for dialysis Assessment and Plan - Problem List (1) Lactic acidosis Code(s): E87.2 - Acidosis Status: Acute (2) Acute kidney injury Code(s): N17.9 - Acute kidney failure, unspecified Status: Acute (3) Elevated levels of transaminase & lactic acid dehydrogenase Code(s): R74.0 - Nonspecific elevation of levels of transaminase and lactic acid dehydrogenase [LDH] Status: Acute (4) Hypoalbuminemia Code(s): E88.09 - Other disorders of plasma-protein metabolism, not elsewhere classified Status: Acute (5) Macrocytic anemia Code(s): D53.9 - Nutritional anemia, unspecified Status: Acute (6) Influenza A Code(s): J10.1 - Influenza due to other identified influenza virus with other respiratory manifestations Status: Acute (7) History of essential hypertension Code(s): Z86.79 - Personal history of other diseases of the circulatory system Status: Acute (8) History of COPD Code(s): Z87.09 - Personal history of other diseases of the respiratory system Status: Acute (9) Elevated troponin Code(s): R74.8 - Abnormal levels of other serum enzymes Status: Acute (10) Acute respiratory failure Code(s): J96.00 - Acute respiratory failure, unspecified whether with hypoxia or hypercapnia Status: Acute (11) Cardiac arrest Code(s): I46.9 - Cardiac arrest, cause unspecified Status: Acute (12) Cholelithiasis Code(s): K80.20 - Calculus of gallbladder without cholecystitis without obstruction Status: Acute (13) Rib fractures Code(s): S22.39XA - Fracture of one rib, unspecified side, initial encounter for closed fracture Status: Acute (14) Hyperkalemia, transcellular shifts Code(s): E87.5 - Hyperkalemia Status: Acute (15) Hypocalcemia Code(s): E83.51 - Hypocalcemia Status: Acute (16) Hyperammonemia Code(s): E72.20 - Disorder of urea cycle metabolism, unspecified Status: Acute - Assessment and Plan Plan: Neuro/Psych: Acute encephalopathy possible anoxic Metabolic encephalopathy Hyperammonemia Propofol/fentanyl drips for sedation/analgesia while intubated Goal of RASS -2-post rewarming Daily sedation vacation when clinically indicated Check EEG upon rewarming followed by Neuro consult if required CT brain small vessel ischemic changes Vit bag daily x3 days Follow-up ammonia [id number] and lactulose added to medication regimen Trend ammonia level CV: Out of hospital cardiac arrest initial rhythm asystole History of essential hypertension Lactic acidosis Elevated troponin B/l rib fx Evaluated by Dr. Montiel in the ED/cardiology. No intervention planned at this time. Will start aspirin 162 mg now then 81 mg daily/carvedilol 3.125 mg BID Hep infusion CT protocol-is on hold for supratherapeutic APTT under hypothermia protocol no lipid-lowering agents secondary to elevated transaminases Patient is on enalapril 5 mg daily at home. Holding RIVAS inhibitor in light of elevated creatinine Serial lactates until cleared Troponins every 6 hours x2 until downtrending, currently trending upward 0.06-> 0.2->0.53->.75 F/U 2D echocardiogram ordered Patient still on hypothermia protocol in lieu of the hyperkalemia, currently at 34.2 reading warming placed on hold until initiation of hemodialysis setting of a potassium level of 10.0 Resp: Acute respiratory failure History of COPD ABRAHAM lung mass - W/u if indicated Pulmonary edema Hypercarbia PRVC ventilation Ventilator bundle Albuterol/ipratropium aerosols every 4 hours with albuterol every 2 hours as needed dyspnea Spontaneous breathing trials when clinically indicated Follow-up a.m. ABG and chest x-ray Patient is on tiotropium 18 mg inhaled daily and montelukast 10 mg daily and mometasone/formoterol 200 mg / [address] pulmonary angiogram b/l rib fx, REZA spiculated mass. No central PE ABG7.0 //16 GI: Elevated transaminases Hypoalbuminemia Cholelithiasis hepatic steatosis Orogastric tube to low intermittent wall suction Pantoprazole for GI prophylaxis Docusate serum/senna 1 tablet twice daily for bowel regimen Check hepatitis panel CT abdomen/pelvis cholelithiasis and hepatic steatosis : Straight catheterization as needed. Endo: Acute hyperglycemia Hypoglycemia Sliding scale insulin with aspart insulin with Accu-Cheks every 6 hours to maintain euglycemia/medium protocol [id number] Renal: Acute kidney injury Hyperkalemia Hypocalcemia Lactic acidemia Metabolic acidosis Nephrotoxic medication Monitor urine output Accurate I's and O's Continue sodium bicarbonate infusion initially 125 cc an hour increased to 200 cc an hour F/U CT abdomen/pelvis- hydronephrosis 05/05placement of Vas-Cath. Stat consult nephrology-Case discussed with Dr. Holland, plan for emergent dialysis potassium level currently 10.0 Continue aggressive measures insulin plus D50, calcium chloride, IV sodium bicarbonate bolusing, IV sodium bicarbonate infusions, Kayexalate per NG tube while awaiting initiation of dialysis Follow-up creatinine kinase level Heme: Macrocytic anemia Elevated PTT Monitor CBC daily. Follow trends No indication for transfusion of blood products at this time. Check CBC and coags Heparin placed on hold ID: Influenza A positive Started oseltamivir 30 mg twice daily cystitis/renal dosage Cultures x2 ordered 05/03. Results pending MSK: Physical therapy evaluate and treat FEN: Shock liver Replace electrolytes as clinically indicated Sodium bicarbonate 200 cc/hour Monitor serial BMP Obtain abdominal ultrasound complete, creatinine kinase, Lactate 18.3, ammonia 368, glucose 10 Access -Utilize peripheral IV. 05/04 Right IJ CVL day #3 placed by ED, left IJ Vas- Cath Day #1 Prophylaxis -GI -pantoprazole -DVT -SCD /heparin infusion placed on hold at this time a PTT elevated, concern for hepatic injury. My billing statement This patient remains critically ill with one or more organ systems which are or may become a threat to life. I have spent in excess of 65 minutes discontinuously in the care and management of this patient. This time is exclusive of procedures, and includes, but is not limited to, evaluation of the patient, review of the medical record, discussions with family, consultants, nursing staff, or respiratory therapy, and documentation in the medical record. (10) Acute respiratory failure Qualifiers: Respiratory failure complication: hypoxia and hypercapnia Qualified Code(s): J96.01 - Acute respiratory failure with hypoxia; J96.02 - Acute respiratory failure with hypercapnia (12) Cholelithiasis Qualifiers: Cholelithiasis location: gallbladder Cholecystitis presence: without cholecystitis Biliary obstruction: without biliary obstruction Qualified Code( s): K80.20 - Calculus of gallbladder without cholecystitis without obstruction (13) Rib fractures Qualifiers: Encounter type: initial encounter Rib fracture type: multiple ribs Fracture type: closed Laterality: bilateral Qualified Code(s): S22.43XA - Multiple fractures of ribs, bilateral, initial encounter for closed fracture
[2018-05-05 07:09] LABS: Albumin 1.2 g/dL (3.4-5.0); Calcium-Albumin Corrected 7.7 mg/dL (8.5-10.1)
[2018-05-05 07:12] LABS: Phosphorus 15.5 mg/dL (2.5-4.9)
[2018-05-05] MEDS ORDERED: Sodium Polystyrene Sulfonate/Sorbitol Liq 15 GM/60 ML UDC PO ONE (08:00)
[2018-05-05] MEDS ORDERED: Dextrose 10% in Water Inj 1,000 ML IV.SIG SCH (08:00)
[2018-05-05 08:18] LABS: VBG Base Excess -15.8 mmol/L (-2-2); VBG Blood Gas Oxygen Content 10.8 Vol % (9.0-17.0); VBG PCO2 63 mmHG (44-48); VBG PH 6.97 (7.360-7.400); VBG PO2 55 mmHG (35-40)
[2018-05-05 08:19] LABS: ABG Base Excess -16.4 mmol/L (-2-2); ABG PCO2 54 mmHg (38-42); ABG PO2 99 mmHG (61-120)
--- NOTE | 2018-05-05 08:21 | P.PNCA ---
Subjective Interval history: Hypothermia protocol ended yesterday evening. This AM patient with serum glucose 10, K+ 9, Ca 5.5, Cr 3.45, LA 18.3. Emergent vascath and arterial line being placed for emergent HD. Trop only 0.7. Tele- no events. Medications and Allergies Active Medications: Active Medications Albuterol (Albuterol Neb (Prn)) 2.5 mg NEB Q2HR NEB PRN PRN Reason: SHORTNESS OF BREATH/WHEEZING Albuterol (Duoneb Neb (Mc)) 1 ampul NEB Q4HR NEB [facility] Last Admin: 05/05/18 03:55 Dose: 1 ampul Artificial Tears (Lacrilube Opth Oint) 1 applicatio EACH EYE BID [facility] Last Admin: 05/04/18 20:39 Dose: 1 applicatio Ascorbic Acid (Vitamin C) 500 mg PO DAILY [facility] Last Admin: 05/04/18 08:23 Dose: 500 mg Aspirin (Ecotrin) 81 mg PO DAILY [facility] Last Admin: 05/04/18 08:23 Dose: 81 mg Bisacodyl (Dulcolax Supp) 10 mg RECTAL DAILY PRN PRN Reason: SEVERE CONSITIPATION Budesonide (Pulmocort Respule Neb) 0.5 mg NEB Q12HR NEB [facility] Last Admin: 05/04/18 19:34 Dose: 0.5 mg Buspirone HCl (Buspar) 15 mg NG/OG Q12H PRN PRN Reason: SHIVERING Carvedilol (Coreg) 3.125 mg PO BID [facility] Last Admin: 05/04/18 20:32 Dose: 3.125 mg Chlorhexidine Gluconate (Peridex 0.12% Oral Kit) 15 ml OROPHARYNG BID@0800, 2000 [facility] Last Admin: 05/04/18 20:32 Dose: 15 ml Chlorhexidine Gluconate (Chlorhexidine 2% Cloth) 3 pack TOPICAL DAILY@0400 [facility] Stop: 05/09/18 03:59 Last Admin: 05/05/18 03:37 Dose: Not Given Chlorhexidine Gluconate (Chlorhexidine 2% Cloth) 3 pack TOPICAL DAILY@0400 PRN PRN Reason: Extra cloth needed Stop: 05/09/18 03:59 Dextrose (D50w Vial) 50 ml IV.PUSH UNSCH PRN PRN Reason: PER HYPOGLYCEMIA PROTOCOL Glucagon (Glucagon Inj) 1 mg OTHER PRN PRN PRN Reason: for Hypoglycemia Protocol Sodium Chloride (Ns Inj) 1,000 mls @ 0 mls/hr IV.SIG .Q0M [facility] Fentanyl (Fentanyl 10 Mcg/Ml Premix Drip) 2,500 mcg in 250 mls @ 5 mls/hr IV.SIG TITRATE PRN; Protocol PRN Reason: Per Protocol Last Titration: 05/05/18 05:51 Dose: 0 mcg/hr, 0 mls/hr Propofol (Diprivan 1000 Mg/100 Ml Inj) 1,000 mg in 100 mls @ 2.545 mls/hr IV.CONT TITRATE PRN; Protocol PRN Reason: Per Protocol Last Admin: 05/04/18 23:15 Dose: 5 mcg/kg/min, 2.55 mls/hr Multivitamins 10 ml/ Thiamine HCl 100 mg/ Folic Acid 1 mg/Sodium Chloride 511.2 mls @ 125 mls/hr IV.SIG Q24H [facility] Stop: 05/05/18 22:06 Last Infusion: 05/04/18 21:27 Dose: Infused Heparin Sodium/Dextrose (Heparin/D5w 25,000 U/250 Ml) 25,000 unit in 250 mls @ 0 mls/hr IV.CONT TITRATE PRN; Protocol PRN Reason: Per Protocol Last Titration: 05/05/18 02:31 Dose: 200 units/hr, 2 mls/hr Cisatracurium Besylate 100 mg/ (Sodium Chloride) 250 mls @ 12.72 mls/hr IV.CONT TITRATE PRN; Protocol PRN Reason: Per Protocol Last Admin: 05/05/18 00:28 Dose: 3 mcg/kg/min, 38.16 mls/hr Norepinephrine Bitartrate 4 mg (/ Sodium Chloride) 250 mls @ 7.5 mls/hr IV.SIG TITRATE PRN; Protocol PRN Reason: Per Protocol Last Titration: 05/05/18 05:51 Dose: 10 mcg/min, 37.5 mls/hr Sodium Bicarbonate 150 meq/ (Sodium Chloride) 1,150 mls @ 150 mls/hr IV.CONT .Q7H40M [facility] Last Admin: 05/05/18 03:37 Dose: Not Given Vasopressin 40 unit/ Dextrose 100 mls @ 6 mls/hr IV.CONT Q16H [facility] Last Admin: 05/04/18 19:47 Dose: 0.04 units/min, 6 mls/hr Phenylephrine HCl 80 mg/ (Dextrose) 500 mls @ 15 mls/hr IV.CONT TITRATE PRN; Protocol PRN Reason: Per Protocol Dextrose (D10w Inj) 1,000 mls @ 30 mls/hr IV.SIG .Q24H [facility] Insulin Aspart (Novolog Insulin Correctional Sugar Inj) 0 unit SQ Q6HR [facility]; Protocol Last Admin: 05/05/18 00:42 Dose: Not Given Lactulose (Lactulose Liq) 30 ml PO DAILY PRN PRN Reason: SEVERE CONSITIPATION Lactulose (Lactulose Liq) 30 ml PO BID [facility] Lorazepam (Ativan Inj) 1 mg IV.PUSH Q1H PRN PRN Reason: SEE LABEL COMMENTS Miscellaneous Medication () 1 each OROPHARYNG 0000,0400,1200,1600 [facility] Last Admin: 05/05/18 03:38 Dose: 1 each Ondansetron HCl (Zofran Inj) 4 mg IV.PUSH Q6H PRN PRN Reason: NAUSEA OR VOMITING Oseltamivir Phosphate (Tamiflu) 30 mg NG/OG BID [facility] Stop: 05/08/18 20:59 Last Admin: 05/04/18 20:33 Dose: 30 mg Pantoprazole Sodium (Protonix Inj) 40 mg IV.PUSH DAILY [facility] Last Admin: 05/04/18 08:23 Dose: 40 mg Rifaximin (Xifaxan) 200 mg PO Q8HR [facility] Senna/Docusate Sodium (Jaelyn-Colace) 1 tab PO BID [facility] Last Admin: 05/04/18 20:33 Dose: 1 tab Sennosides (Senokot) 17.2 mg PO Q12H PRN PRN Reason: Moderate Constipation Sodium Chloride (Ns Flush) 2 ml IV.FLUSH BID [facility] Last Admin: 05/04/18 20:32 Dose: 2 ml Sodium Chloride (Ns Flush) 2 ml IV.FLUSH PRN PRN PRN Reason: FLUSH AFTER USING IV ACCESS Terbutaline Sulfate (Brethine Inj) 1 mg SQ UNSCH PRN PRN Reason: For Extravasation Zinc Sulfate (Zinc-220) 220 mg PO DAILY [facility] Last Admin: 05/04/18 08:23 Dose: 220 mg Allergies Allergy/AdvReac Type Severity Reaction Status Date / Time procaine [From Novocain] Allergy Arrhythmias Verified 05/03/18 15:13 Home Medications Medication Instructions Recorded Confirmed Type enalapril maleate 5 mg PO DAILY 05/03/18 05/03/18 History mometasone-formoterol [Dulera] 2 puff INHALATION BID 05/03/18 05/03/18 History montelukast [Singulair] 10 mg PO QPM 05/03/18 05/03/18 History tiotropium bromide [Spiriva with 1 cap INHALATION DAILY 05/03/18 05/03/18 History HandiHaler] Physical Exam Vital signs: Vital Signs 05/04/18 08:15 05/04/18 08:30 05/04/18 08:45 Temperature 91.2 F L 91.2 F L 91.2 F L Pulse Rate 79 82 82 Respiratory Rate 24 24 24 Blood Pressure Pulse Oximetry 96 97 97 05/04/18 09:00 05/04/18 09:15 05/04/18 09:30 Temperature 91.2 F L 91.2 F L 91.2 F L Pulse Rate 84 88 90 Respiratory Rate 24 24 22 Blood Pressure 94/65 L Pulse Oximetry 98 05/04/18 09:45 05/04/18 10:00 05/04/18 10:15 Temperature 91.2 F L 91.2 F L 91.2 F L Pulse Rate 87 87 86 Respiratory Rate 24 24 24 Blood Pressure 89/58 L Pulse Oximetry 96 95 95 05/04/18 10:30 05/04/18 10:45 05/04/18 11:00 Temperature 91.2 F L 91.2 F L 91.4 F L Pulse Rate 87 89 87 Respiratory Rate 24 24 24 Blood Pressure 91/69 L Pulse Oximetry 96 95 96 05/04/18 11:15 05/04/18 11:30 05/04/18 11:45 Temperature 91.4 F L 91.4 F L 91.4 F L Pulse Rate 86 88 88 Respiratory Rate 24 24 24 Blood Pressure Pulse Oximetry 95 97 96 05/04/18 11:47 05/04/18 12:00 05/04/18 12:01 Temperature 91.4 F L 91.4 F L Pulse Rate 90 90 Respiratory Rate 24 24 24 Blood Pressure 85/61 L 85/61 L Pulse Oximetry 96 97 96 05/04/18 12:15 05/04/18 12:30 05/04/18 12:45 Temperature 91.4 F L 91.4 F L 91.4 F L Pulse Rate 91 H 90 91 H Respiratory Rate 24 24 24 Blood Pressure Pulse Oximetry 97 97 98 05/04/18 13:00 05/04/18 13:15 05/04/18 13:30 Temperature 91.4 F L 91.4 F L 91.6 F L Pulse Rate 92 H 92 H 91 H Respiratory Rate 24 24 24 Blood Pressure 88/68 L Pulse Oximetry 99 100 100 05/04/18 13:45 05/04/18 14:00 05/04/18 14:01 Temperature 91.6 F L 91.6 F L 91.6 F L Pulse Rate 90 88 87 Respiratory Rate 24 24 24 Blood Pressure 115/59 L Pulse Oximetry 99 99 99 05/04/18 14:15 05/04/18 14:28 05/04/18 14:30 Temperature 91.4 F L 91.4 F L 91.4 F L Pulse Rate 87 86 87 Respiratory Rate 24 24 24 Blood Pressure 91/59 L Pulse Oximetry 98 98 97 05/04/18 14:45 05/04/18 15:00 05/04/18 15:15 Temperature 91.2 F L 91.0 F L 91.0 F L Pulse Rate 87 91 H 92 H Respiratory Rate 24 24 24 Blood Pressure 95/67 L Pulse Oximetry 98 99 99 05/04/18 15:28 05/04/18 15:30 05/04/18 15:45 Temperature 91.2 F L 91.4 F L Pulse Rate 91 H 90 Respiratory Rate 24 24 24 Blood Pressure Pulse Oximetry 98 98 98 05/04/18 16:00 05/04/18 16:15 05/04/18 16:30 Temperature 91.4 F L 91.4 F L 91.4 F L Pulse Rate 91 H 89 89 Respiratory Rate 24 23 24 Blood Pressure 86/64 L Pulse Oximetry 97 96 95 05/04/18 16:45 05/04/18 17:00 05/04/18 17:15 Temperature 91.4 F L 91.2 F L 91.0 F L Pulse Rate 90 90 90 Respiratory Rate 16 24 24 Blood Pressure 87/55 L Pulse Oximetry 93 L 95 96 05/04/18 17:30 05/04/18 17:45 05/04/18 18:00 Temperature 91.0 F L 91.0 F L 91.2 F L Pulse Rate 91 H 92 H 91 H Respiratory Rate 24 24 24 Blood Pressure 81/51 L Pulse Oximetry 96 96 97 05/04/18 18:15 18 18:30 05/04/18 18:45 Temperature 91.2 F L 91.4 F L 91.4 F L Pulse Rate 92 H 90 89 Respiratory Rate 24 24 24 Blood Pressure Pulse Oximetry 97 96 96 05/04/18 19:00 05/04/18 19:01 05/04/18 19:15 Temperature 91.2 F L 91.2 F L 91.2 F L Pulse Rate 77 78 79 Respiratory Rate 24 24 24 Blood Pressure 86/51 L Pulse Oximetry 95 95 95 05/04/18 19:30 05/04/18 19:35 05/04/18 19:45 Temperature 91.2 F L 91.0 F L Pulse Rate 79 79 80 Respiratory Rate 24 24 24 Blood Pressure Pulse Oximetry 98 98 100 05/04/18 20:00 05/04/18 20:04 05/04/18 20:15 Temperature 91.2 F L 91.2 F L 91.2 F L Pulse Rate 81 80 80 Respiratory Rate 24 24 24 Blood Pressure 97/63 L 104/59 L Pulse Oximetry 96 96 96 05/04/18 20:30 18 20:45 05/04/18 21:00 Temperature 91.2 F L 91.2 F L 91.2 F L Pulse Rate 80 89 91 H Respiratory Rate 24 24 24 Blood Pressure Pulse Oximetry 95 94 L 94 L 05/04/18 21:02 05/04/18 21:15 05/04/18 21:30 Temperature 91.2 F L 91.2 F L 91.0 F L Pulse Rate 91 H 88 89 Respiratory Rate 24 24 24 Blood Pressure 124/83 Pulse Oximetry 91 L 75 L 74 L 05/04/18 21:45 05/04/18 22:00 05/04/18 22:07 Temperature 91.0 F L 91.0 F L Pulse Rate 91 H 92 H 91 H Respiratory Rate 24 24 Blood Pressure 124/85 Pulse Oximetry 73 L 74 L 05/04/18 22:15 05/04/18 22:30 05/04/18 22:45 Temperature 91.0 F L 91.0 F L 91.0 F L Pulse Rate 78 79 80 Respiratory Rate 24 24 24 Blood Pressure Pulse Oximetry 74 L 72 L 76 L 05/04/18 23:00 05/04/18 23:15 05/04/18 23:30 Temperature 91.4 F L 91.6 F L 91.8 F L Pulse Rate 82 82 82 Respiratory Rate 24 24 24 Blood Pressure 114/79 Pulse Oximetry 75 L 77 L 05/04/18 23:45 05/05/18 00:00 05/05/18 00:03 Temperature 92.1 F L 92.3 F L 92.3 F L Pulse Rate 81 80 80 Respiratory Rate 24 24 24 Blood Pressure 152/93 H Pulse Oximetry 90 L 86 L 68 L 05/05/18 00:15 05/05/18 00:30 05/05/18 00:45 Temperature 92.3 F L 92.5 F L 92.5 F L Pulse Rate 77 76 76 Respiratory Rate 24 24 24 Blood Pressure Pulse Oximetry 67 L 68 L 66 L 05/05/18 01:00 05/05/18 01:04 05/05/18 01:15 Temperature 92.5 F L 92.5 F L 92.5 F L Pulse Rate 79 79 80 Respiratory Rate 24 24 24 Blood Pressure 102/66 Pulse Oximetry 64 L 93 L 05/05/18 01:30 05/05/18 01:45 05/05/18 02:00 Temperature 92.5 F L 92.5 F L 92.7 F L Pulse Rate 81 80 77 Respiratory Rate 24 24 24 Blood Pressure Pulse Oximetry 05/05/18 02:15 05/05/18 02:19 05/05/18 02:30 Temperature 92.8 F L 92.8 F L 92.8 F L Pulse Rate 76 76 76 Respiratory Rate 24 24 24 Blood Pressure 101/67 Pulse Oximetry 05/05/18 02:45 05/05/18 03:00 05/05/18 03:15 Temperature 93.0 F L 93.2 F L 93.2 F L Pulse Rate 76 76 74 Respiratory Rate 24 24 24 Blood Pressure Pulse Oximetry 05/05/18 03:30 05/05/18 03:45 05/05/18 03:56 Temperature 93.4 F L 93.4 F L Pulse Rate 73 74 73 Respiratory Rate 24 24 24 Blood Pressure Pulse Oximetry 05/05/18 04:00 05/05/18 04:15 05/05/18 04:30 Temperature 93.4 F L 93.6 F L 93.6 F L Pulse Rate 79 86 87 Respiratory Rate 24 24 24 Blood Pressure Pulse Oximetry 05/05/18 04:45 05/05/18 05:00 05/05/18 05:15 Temperature 93.7 F L 93.7 F L 93.9 F L Pulse Rate 78 180 H 85 Respiratory Rate 24 24 24 Blood Pressure Pulse Oximetry 05/05/18 05:30 05/05/18 06:11 Temperature 93.9 F L Pulse Rate 83 79 Respiratory Rate 24 Blood Pressure Pulse Oximetry Intake & Output 05/04/18 05/05/18 05/05/18 18:59 06:59 18:59 Intake Total 1923 / 1923 2641.2 / 2641.2 Output Total 223 / 223 Balance 1921 / 1921 2418.2 / 2418.2 Weight 96.5 kg Intake: IV 3 / 1923 2641.2 / 2641.2 Nimbex Inj 100 MG In NS Inj 240 462 / 462 250 / 250 ML @ 1 MCG/KG/MIN 12.72 mls/hr IV.CONT TITRATE PRN Rx#: [id number] Diprivan 1000 mg/100 ml Inj 1, 62 / 62 000 mg In 100 ml @ 5 MCG/KG/MIN 2.545 mls/hr IV.CONT TITRATE PRN Rx#:[id number] Sodium Bicarbonate 8.4% Inj 150 1134 / 1134 MEQ In D5W Inj 850 ML @ 125 mls/hr IV.CONT .Q8H [facility] Rx#: [id number] Sodium Bicarbonate 8.4% Inj 150 1150 / 1150 MEQ In 1/2 Normal Saline Inj 1 ,000 ML @ 125 mls/hr IV.CONT . Q9H12M [facility] Rx#:[id number] Magnesium Sulfate Inj 2 GM In 100 / 100 NS Inj 96 ML @ 50 mls/hr IV.SIG ONCE ONE Rx#:[id number] MVI-12 Inj 10 ML Thiamine Inj 511.2 / 511.2 100 MG Folvite Inj 1 MG In NS Inj 500 ML @ 125 mls/hr IV.SIG Q24H [facility] Rx#:[id number] Levophed Inj 4 MG In NS Inj 246 227 / 227 250 / 250 ML @ 2 MCG/MIN 7.5 mls/hr IV. SIG TITRATE PRN Rx#:[id number] KCl 40 mEq Premix Inj 40 meq In 200 / 200 100 ml @ 25 mls/hr IV.SIG Q4H [facility] Rx#:[id number] fentaNYL 10 mcg/mL Premix Drip 118 / 118 2,500 mcg In 250 ml @ 50 MCG/HR 5 mls/hr IV.SIG TITRATE PRN Rx #:[id number] Output: Urine Urine Amount (Catheter) 2 / 2 0 / 0 Indwelling Temp Sensing 2 / 2 0 / 0 Catheter Gastric Drainage 200 / 200 Oral Orogastric Tube 200 / 200 Other: Date of Last Bowel Movement 05/05/18 # Bowel Movements 1 Narrative: GENERAL: sedated, orotracheally intubated SKIN: Warm and dry. HEAD: Atraumatic. Normocephalic. NECK: Trachea midline. No JVD. Right IJ CVL is clean dry and intact CARDIOVASCULAR: Regular rate and rhythm. RESPIRATORY: No accessory muscle use. Clear to auscultation. Breath sounds equal bilaterally. GASTROINTESTINAL: Abdomen soft, non-tender, nondistended. Hepatic and splenic margins not palpable. MUSCULOSKELETAL: Extremities without clubbing, cyanosis, or edema. No obvious deformities. - Urinary Catheter Management Indwelling Urethral Catheter Cath placed during this visit: yes, but has since been removed by the nurse Reason for continuing: Decision to DC catheter Insertion date: 05/03/18 Insertion time: 16:22 Removal date: 05/03/18 Removal time: 20:00 Indwelling Temp Sensing Catheter Cath placed during this visit: yes Reason for continuing: Hourly intake/output Insertion date: 05/03/18 Insertion time: 20:05 Results 05/05/18 05:28 05/05/18 05:28 Cardiac Enzymes 05/03/18 05/03/18 05/03/18 Range/Units 15:45 15:45 18:36 AST 648 H 1981 H (15-37) U/L Lactate Dehydrogenase 2830 H (87-241) U/L CK-MB (CK-2) 7.5 H 46.2 H (0.5-3.6) ng/mL Troponin I 0.06 H 0.29 H (0.02-0.05) ng/mL 05/03/18 05/04/18 05/05/18 Range/Units 23:45 05:45 06:26 AST 3620 H (15-37) U/L Lactate Dehydrogenase (87-241) U/L CK-MB (CK-2) 71.3 H (0.5-3.6) ng/mL Troponin I 0.53 H 0.75 H* (0.02-0.05) ng/mL Coagulation 05/03/18 05/03/18 05/03/18 Range/Units 15:45 18:36 23:45 PT 12.1 H 13.4 H (9.8-11.6) sec APTT 47.5 H 42.2 H 59.7 H D (23.4-31.7) sec 05/04/18 05/04/18 05/04/18 Range/Units 05:45 09:00 11:20 PT 17.7 H (9.8-11.6) sec APTT 174.6 H* D 114.7 H* D 76.3 H D (23.4-31.7) sec 05/04/18 05/04/18 05/04/18 Range/Units 17:20 20:31 22:44 PT (9.8-11.6) sec APTT 176.7 H* D 128.4 H* D 94.2 H* D (23.4-31.7) sec 05/05/18 Range/Units 01:09 PT (9.8-11.6) sec APTT 74.4 H D (23.4-31.7) sec CBC 05/03/18 05/03/18 05/04/18 Range/Units 15:45 18:36 05:45 WBC 6.9 19.4 H D 10.9 (4.0-11.0) th/mm3 RBC 3.69 L 4.18 L 4.08 L (4.50-5.90) mil/mm3 Hgb 12.8 L 14.1 14.3 (13.0-17.0) gm/dL Hct 40.7 42.9 42.1 (39.0-51.0) % Plt Count 252 284 199 (150-450) th/mm3 Neut # (Auto) 4.9 8.8 H (1.8-7.7) th/mm3 Lymph # (Auto) 1.5 1.9 (1.0-4.8) th/mm3 [place] # (Auto) 0.4 0.1 (0.0-0.9) th/mm3 Eos # (Auto) 0.0 0.0 (0.0-0.4) th/mm3 Baso # (Auto) 0.1 0.0 (0.0-0.2) th/mm3 05/05/18 Range/Units 05:28 WBC 6.6 (4.0-11.0) th/mm3 RBC 3.58 L (4.50-5.90) mil/mm3 Hgb 12.3 L D (13.0-17.0) gm/dL Hct 37.3 L (39.0-51.0) % Plt Count 122 L D (150-450) th/mm3 Neut # (Auto) 5.7 (1.8-7.7) th/mm3 Lymph # (Auto) 0.8 L (1.0-4.8) th/mm3 [place] # (Auto) 0.1 (0.0-0.9) th/mm3 Eos # (Auto) 0.0 (0.0-0.4) th/mm3 Baso # (Auto) 0.0 (0.0-0.2) th/mm3 Comprehensive Metabolic Panel 05/03/18 05/03/18 05/03/18 Range/Units 15:45 18:36 23:45 Sodium 143 139 143 (136-145) meq/L Potassium 4.9 5.5 H 5.5 H (3.5-5.1) meq/L Chloride 110 H 111 H 113 H (98-107) meq/L Carbon Dioxide 15.4 L 15.5 L 17.8 L (21.0-32.0) meq/L BUN 22 H 25 H 31 H (7-18) mg/dL Creatinine 1.74 H 2.05 H 2.31 H (0.60-1.30) mg/dL Calcium 7.5 L 7.2 L* 6.4 L* D (8.5-10.1) mg/dL AST 648 H 1981 H (15-37) U/L ALT 438 H 1158 H (12-78) U/L Alkaline Phosphatase 159 H 280 H (45-117) U/L Total Protein 5.5 L 6.0 L (6.4-8.2) g/dL Albumin 2.3 L 2.5 L 2.2 L (3.4-5.0) g/dL 05/04/18 05/04/18 05/04/18 Range/Units 05:45 11:20 17:20 Sodium 142 143 144 (136-145) meq/L Potassium 3.9 D 3.2 L 2.8 L* (3.5-5.1) meq/L Chloride 111 H 108 H 107 (98-107) meq/L Carbon Dioxide 16.8 L 19.5 L 20.8 L (21.0-32.0) meq/L BUN 35 H 37 H 37 H (7-18) mg/dL Creatinine 2.78 H 3.09 H 3.29 H (0.60-1.30) mg/dL Calcium 6.3 L* 6.0 L* 5.7 L* (8.5-10.1) mg/dL AST 3620 H (15-37) U/L ALT 1462 H (12-78) U/L Alkaline Phosphatase 249 H (45-117) U/L Total Protein 4.8 L D (6.4-8.2) g/dL Albumin 2.0 L 1.9 L 1.7 L (3.4-5.0) g/dL 05/05/18 Range/Units 05:28 Sodium 151 H (136-145) meq/L Potassium 9.3 H* D (3.5-5.1) meq/L Chloride 111 H (98-107) meq/L Carbon Dioxide 17.5 L (21.0-32.0) meq/L BUN 39 H (7-18) mg/dL Creatinine 3.45 H (0.60-1.30) mg/dL Calcium 5.5 L* (8.5-10.1) mg/dL AST (15-37) U/L ALT (12-78) U/L Alkaline Phosphatase (45-117) U/L Total Protein (6.4-8.2) g/dL Albumin 1.2 L (3.4-5.0) g/dL Intake and Output 05/04/18 05/05/18 05/05/18 22:59 06:59 14:59 Intake Total 8.2 / 193.2 1879 Output Total 0 / 0 223 / 223 Balance 1938.2 / 1938.2 165 / 1657 Intake: IV 1937.2 / 1937.2 1879 / 1879 Nimbex Inj 100 MG In NS Inj 240 250 / 250 250 / 250 ML @ 1 MCG/KG/MIN 12.72 mls/hr IV.CONT TITRATE PRN Rx#: [id number] Diprivan 1000 mg/100 ml Inj 1, 62 / 62 000 mg In 100 ml @ 5 MCG/KG/MIN 2.545 mls/hr IV.CONT TITRATE PRN Rx#:[id number] Sodium Bicarbonate 8.4% Inj 150 700 / 700 MEQ In D5W Inj 850 ML @ 125 mls/hr IV.CONT .Q8H [facility] Rx#: [id number] Sodium Bicarbonate 8.4% Inj 150 1150 / 1150 MEQ In 1/2 Normal Saline Inj 1 ,000 ML @ 125 mls/hr IV.CONT . Q9H12M [facility] Rx#:[id number] Magnesium Sulfate Inj 2 GM In 100 / 100 NS Inj 96 ML @ 50 mls/hr IV.SIG ONCE ONE Rx#:[id number] MVI-12 Inj 10 ML Thiamine Inj 511.2 / 511.2 100 MG Folvite Inj 1 MG In NS Inj 500 ML @ 125 mls/hr IV.SIG Q24H [facility] Rx#:[id number] Levophed Inj 4 MG In NS Inj 246 477 / 477 ML @ 2 MCG/MIN 7.5 mls/hr IV. SIG TITRATE PRN Rx#:[id number] KCl 40 mEq Premix Inj 40 meq In 200 / 200 100 ml @ 25 mls/hr IV.SIG Q4H [facility] Rx#:[id number] fentaNYL 10 mcg/mL Premix Drip 118 / 118 2,500 mcg In 250 ml @ 50 MCG/HR 5 mls/hr IV.SIG TITRATE PRN Rx #:[id number] Output: Urine 23 / 23 Urine Amount (Catheter) 0 / 0 0 / 0 Indwelling Temp Sensing 0 / 0 0 / 0 Catheter Gastric Drainage 200 / 200 Oral Orogastric Tube 200 / 200 Other: Date of Last Bowel Movement 05/05/18 # Bowel Movements 1 Weight 96.5 kg - Imaging and Cardiology Imaging: Impressions Chest CTA 05/03/18 00:00 CONCLUSION: 1. Multiple acute displaced rib fractures bilaterally. 2. Spiculated left upper lobe mass not identified on the patient's prior chest x-ray due to technique. This is concerning for underlying malignancy. 3. Slight left lung base infiltrate. Head CT 05/03/18 15:38 CONCLUSION: Chronic small vessel ischemic and atrophic changes. Chest X-Ray 05/03/18 15:39 CONCLUSION: No acute cardiopulmonary disease. Abdomen/Pelvis CT 05/03/18 16:39 CONCLUSION: Cholelithiasis and fatty liver. Chest X-Ray 05/04/18 06:00 CONCLUSION: The lungs are clear. Lines and tubes stable. Chest X-Ray 05/05/18 04:00 CONCLUSION: Interval development of peribronchial thickening in the mid and lower perihilar region suggesting pulmonary interstitial edema. No focal infiltrates seen. Assessment and Plan - Plan -- Cardiac arrest, initial rhythm asystole. Unknown etiology, possibly due to acute respiratory failure with Influenza A positivity. EKG showed no acute ischemic changes. No events on telemetry When patient has meaningful neurologic recovery, consider ischemic workup. Patient will be managed by ICU team. -- Critical electrolyte abnormality, hyperkalemia, hypocalcemia -- Multisystem organ failure with Acute respiratory failure, acute renal failure , shock liver -- Influenza A positive -- Lung mass, unclear significance, suspicious for malignancy. -- COPD -- HTN, currently hypotensive Prognosis is very guarded Will sign off for now. call when patient would be is stable for ischemia evaluation.
[2018-05-05 08:44] LABS: Alanine Aminotransferase 3887 U/L (12-78); Alkaline Phosphatase 188 U/L (45-117); Anion Gap 20 meq/L (5-15); Aspartate Aminotransferase 7881 U/L (15-37); Blood Urea Nitrogen 38 mg/dL (7-18); Carbon Dioxide 16.7 meq/L (21.0-32.0); Chloride 106 meq/L (98-107); Glomerular Filtration Rate 16 mL/min (>89); Glucose,Random 387 mg/dL (74-106); Sodium 143 meq/L (136-145); Total Protein 2.7 g/dL (6.4-8.2)
[2018-05-05] MEDS ORDERED: Gelatin 12 MM/7 MM Topical Foam TOPICAL PRN (08:51)
[2018-05-05] MEDS ORDERED: Albumin Human 25% Inj 100 ML IV.SIG PRN (08:51)
[2018-05-05] MEDS ORDERED: Sod Chloride 0.9% Inj 1,000 ML IV.CONT PRN (08:51)
[2018-05-05] MEDS ORDERED: Sod Chloride 0.9% Inj 1,000 ML OTHER PRN ×2 (08:51)
[2018-05-05 08:59] LABS: Potassium 10.1 meq/L (3.5-5.1)
--- NOTE | 2018-05-05 09:19 | P.CONNP ---
<Lashaun Knight - Last Filed: 05/05/18 15:04> History of Present Illness Service: Nephrology Consult date: 05/05/18 Requesting Physician: Elham Valladares Reason for Consult: Acute kidney injury with hyperkalemia Primary Care Provider: UNKNOWN Chief Complaint: Out of hospital cardiac arrest History of Present Illness: Patient seen in the morning. Intubated and sedated undergoing hypothermia protocol. Nephrology is consulted for emergent dialysis for acute kidney injury with hyperkalemia with creatinine of 3.83 and potassium level of 10.0 Review of Systems unobtainable due to endotracheal tube PMFSH - History History Provided By: Outpatient Case Manager / EMT - Medical / Surgical Hx Neg / Unobtainable Medical Problems Denied: Unable to Obtain - Medical History Medical History: Medical History (Last Reviewed 05/04/18 @ 08:08 by Allan Osorio) COPD (chronic obstructive pulmonary disease) HTN (hypertension) - Surgical History Surgical History: Surgical History (Last Reviewed 05/04/18 @ 08:08 by Allan Osorio) Surgical history unknown - Family History Family History: Family History (Last Updated 05/03/18 @ 17:08 by Griffin Ceballos MD) Other Family history unknown - Tobacco History Smoking Status: Refused to answer - Alcohol History How Often Do You Have a Drink Containing Alcohol: Unable to Obtain - Substance Use History Substance History: Unable to Obtain - Travel History Recent Travel in the [place] Within the Last 8 Weeks: No Recent Travel Out of the Country Within the Last 8 Weeks: No - Immunization History Tetanus Immunization: Unable to Assess Medications and Allergies Allergies Allergy/AdvReac Type Severity Reaction Status Date / Time procaine [From Novocain] Allergy Arrhythmias Verified 05/03/18 15:13 Home Medications Medication Instructions Recorded Confirmed Type enalapril maleate 5 mg PO DAILY 05/03/18 05/03/18 History mometasone-formoterol [Dulera] 2 puff INHALATION BID 05/03/18 05/03/18 History montelukast [Singulair] 10 mg PO QPM 05/03/18 05/03/18 History tiotropium bromide [Spiriva with 1 cap INHALATION DAILY 05/03/18 05/03/18 History HandiHaler] Active Medications: Active Medications Albuterol (Albuterol Neb (Prn)) 2.5 mg NEB Q2HR NEB PRN PRN Reason: SHORTNESS OF BREATH/WHEEZING Albuterol (Duoneb Neb ([facility])) 1 ampul NEB Q4HR [facility] Last Admin: 05/05/18 03:55 Dose: 1 ampul Artificial Tears (Lacrilube Opth Oint) 1 applicatio EACH EYE BID [facility] Last Admin: 05/04/18 20:39 Dose: 1 applicatio Ascorbic Acid (Vitamin C) 500 mg PO DAILY [facility] Last Admin: 05/04/18 08:23 Dose: 500 mg Aspirin (Ecotrin) 81 mg PO DAILY [facility] Last Admin: 05/04/18 08:23 Dose: 81 mg Bisacodyl (Dulcolax Supp) 10 mg RECTAL DAILY PRN PRN Reason: SEVERE CONSITIPATION Budesonide (Pulmocort Respule Neb) 0.5 mg NEB Q12HR [facility] Last Admin: 05/04/18 19:34 Dose: 0.5 mg Buspirone HCl (Buspar) 15 mg NG/OG Q12H PRN PRN Reason: SHIVERING Carvedilol (Coreg) 3.125 mg PO BID [facility] Last Admin: 05/04/18 20:32 Dose: 3.125 mg Chlorhexidine Gluconate (Peridex 0.12% Oral Kit) 15 ml OROPHARYNG BID@0800, 2000 [facility] Last Admin: 05/04/18 20:32 Dose: 15 ml Chlorhexidine Gluconate (Chlorhexidine 2% Cloth) 3 pack TOPICAL DAILY@0400 [facility] Stop: 05/09/18 03:59 Last Admin: 05/05/18 03:37 Dose: Not Given Chlorhexidine Gluconate (Chlorhexidine 2% Cloth) 3 pack TOPICAL DAILY@0400 PRN PRN Reason: Extra cloth needed Stop: 05/09/18 03:59 Clonidine HCl (Catapres) 0.1 mg PO UNSCH PRN PRN Reason: SEE LABEL COMMENTS Dextrose (D50w Vial) 50 ml IV.PUSH UNSCH PRN PRN Reason: PER HYPOGLYCEMIA PROTOCOL Gelatin (Gelfoam 12 Mm/7 Mm Topical) 1 foam TOPICAL PRN PRN PRN Reason: help stop bleeding from site Glucagon (Glucagon Inj) 1 mg OTHER PRN PRN PRN Reason: for Hypoglycemia Protocol Sodium Chloride (Ns Inj) 1,000 mls @ 0 mls/hr IV.SIG .Q0M [facility] Fentanyl (Fentanyl 10 Mcg/Ml Premix Drip) 2,500 mcg in 250 mls @ 5 mls/hr IV.SIG TITRATE PRN; Protocol PRN Reason: Per Protocol Last Titration: 05/05/18 05:51 Dose: 0 mcg/hr, 0 mls/hr Propofol (Diprivan 1000 Mg/100 Ml Inj) 1,000 mg in 100 mls @ 2.545 mls/hr IV.CONT TITRATE PRN; Protocol PRN Reason: Per Protocol Last Admin: 05/04/18 23:15 Dose: 5 mcg/kg/min, 2.55 mls/hr Multivitamins 10 ml/ Thiamine HCl 100 mg/ Folic Acid 1 mg/Sodium Chloride 511.2 mls @ 125 mls/hr IV.SIG Q24H [facility] Stop: 05/05/18 22:06 Last Infusion: 05/04/18 21:27 Dose: Infused Heparin Sodium/Dextrose (Heparin/D5w 25,000 U/250 Ml) 25,000 unit in 250 mls @ 0 mls/hr IV.CONT TITRATE PRN; Protocol PRN Reason: Per Protocol Last Titration: 05/05/18 02:31 Dose: 200 units/hr, 2 mls/hr Cisatracurium Besylate 100 mg/ (Sodium Chloride) 250 mls @ 12.72 mls/hr IV.CONT TITRATE PRN; Protocol PRN Reason: Per Protocol Last Admin: 05/05/18 00:28 Dose: 3 mcg/kg/min, 38.16 mls/hr Norepinephrine Bitartrate 4 mg (/ Sodium Chloride) 250 mls @ 7.5 mls/hr IV.SIG TITRATE PRN; Protocol PRN Reason: Per Protocol Last Titration: 05/05/18 05:51 Dose: 10 mcg/min, 37.5 mls/hr Sodium Bicarbonate 150 meq/ (Sodium Chloride) 1,150 mls @ 200 mls/hr IV.CONT .Q5H45M [facility] Last Admin: 05/05/18 03:37 Dose: Not Given Vasopressin 40 unit/ Dextrose 100 mls @ 6 mls/hr IV.CONT Q16H [facility] Last Admin: 05/04/18 19:47 Dose: 0.04 units/min, 6 mls/hr Phenylephrine HCl 80 mg/ (Dextrose) 500 mls @ 15 mls/hr IV.CONT TITRATE PRN; Protocol PRN Reason: Per Protocol Dextrose (D10w Inj) 1,000 mls @ 30 mls/hr IV.SIG .Q24H [facility] Sodium Chloride (Ns Inj) 1,000 mls @ 0 mls/hr OTHER .Q0M PRN PRN Reason: for prime and rinse back Sodium Chloride (Ns Inj) 1,000 mls @ 200 mls/hr OTHER .Q5H PRN PRN Reason: for dialyzer flush PRN Sodium Chloride (Ns Inj) 1,000 mls @ 0 mls/hr IV.CONT .Q0M PRN PRN Reason: hypotension / volume replace Albumin Human (Flexbumin 25% Inj) 100 mls @ 60 mls/hr IV.SIG WITH DIALYSIS PRN PRN Reason: hypotension / volume replace Insulin Aspart (Novolog Insulin Correctional Sugar Inj) 0 unit SQ Q6HR [facility]; Protocol Last Admin: 05/05/18 00:42 Dose: Not Given Lactulose (Lactulose Liq) 30 ml PO DAILY PRN PRN Reason: SEVERE CONSITIPATION Lactulose (Lactulose Liq) 30 ml PO BID [facility] Lorazepam (Ativan Inj) 1 mg IV.PUSH Q1H PRN PRN Reason: SEE LABEL COMMENTS Mannitol (Mannitol Inj) 12.5 gm IV.PUSH UNSCH PRN PRN Reason: hypotension / volume replace Miscellaneous Medication () 1 each OROPHARYNG 0000,0400,1200,1600 [facility] Last Admin: 05/05/18 03:38 Dose: 1 each Nitroglycerin (Nitrostat Sl) 0.4 mg SL Q5M PRN PRN Reason: CHEST PAIN Ondansetron HCl (Zofran Inj) 4 mg IV.PUSH Q6H PRN PRN Reason: NAUSEA OR VOMITING Ondansetron HCl (Zofran Inj) 4 mg IV.PUSH UNSCH PRN PRN Reason: NAUSEA OR VOMITING Oseltamivir Phosphate (Tamiflu) 30 mg NG/OG BID [facility] Stop: 05/08/18 20:59 Last Admin: 05/04/18 20:33 Dose: 30 mg Pantoprazole Sodium (Protonix Inj) 40 mg IV.PUSH DAILY [facility] Last Admin: 05/04/18 08:23 Dose: 40 mg Rifaximin (Xifaxan) 200 mg PO Q8HR [facility] Senna/Docusate Sodium (Jaelyn-Colace) 1 tab PO BID [facility] Last Admin: 05/04/18 20:33 Dose: 1 tab Sennosides (Senokot) 17.2 mg PO Q12H PRN PRN Reason: Moderate Constipation Sodium Chloride (Ns Flush) 2 ml IV.FLUSH BID [facility] Last Admin: 05/04/18 20:32 Dose: 2 ml Sodium Chloride (Ns Flush) 2 ml IV.FLUSH PRN PRN PRN Reason: FLUSH AFTER USING IV ACCESS Sodium Chloride (Ns Flush) 5 ml IV.FLUSH PRN PRN PRN Reason: flush each lumen during HD Terbutaline Sulfate (Brethine Inj) 1 mg SQ UNSCH PRN PRN Reason: For Extravasation Zinc Sulfate (Zinc-220) 220 mg PO DAILY [facility] Last Admin: 05/04/18 08:23 Dose: 220 mg Exam Vital signs: Vital Signs 05/04/18 09:30 05/04/18 09:45 05/04/18 10:00 Temperature 91.2 F L 91.2 F L 91.2 F L Pulse Rate 90 87 87 Respiratory Rate 22 24 24 Blood Pressure 89/58 L Pulse Oximetry 98 96 95 05/04/18 10:15 05/04/18 10:30 05/04/18 10:45 Temperature 91.2 F L 91.2 F L 91.2 F L Pulse Rate 86 87 89 Respiratory Rate 24 24 24 Blood Pressure Pulse Oximetry 95 96 95 05/04/18 11:00 05/04/18 11:15 05/04/18 11:30 Temperature 91.4 F L 91.4 F L 91.4 F L Pulse Rate 87 86 88 Respiratory Rate 24 24 24 Blood Pressure 91/69 L Pulse Oximetry 96 95 97 05/04/18 11:45 05/04/18 11:47 05/04/18 12:00 Temperature 91.4 F L 91.4 F L Pulse Rate 88 90 Respiratory Rate 24 24 24 Blood Pressure 85/61 L Pulse Oximetry 96 96 97 05/04/18 12:01 05/04/18 12:15 05/04/18 12:30 Temperature 91.4 F L 91.4 F L 91.4 F L Pulse Rate 90 91 H 90 Respiratory Rate 24 24 24 Blood Pressure 85/61 L Pulse Oximetry 96 97 97 05/04/18 12:45 05/04/18 13:00 05/04/18 13:15 Temperature 91.4 F L 91.4 F L 91.4 F L Pulse Rate 91 H 92 H 92 H Respiratory Rate 24 24 24 Blood Pressure 88/68 L Pulse Oximetry 98 99 100 05/04/18 13:30 05/04/18 13:45 05/04/18 14:00 Temperature 91.6 F L 91.6 F L 91.6 F L Pulse Rate 91 H 90 88 Respiratory Rate 24 24 24 Blood Pressure Pulse Oximetry 100 99 99 05/04/18 14:01 05/04/18 14:15 05/04/18 14:28 Temperature 91.6 F L 91.4 F L 91.4 F L Pulse Rate 87 87 86 Respiratory Rate 24 24 24 Blood Pressure 115/59 L 91/59 L Pulse Oximetry 99 98 98 05/04/18 14:30 05/04/18 14:45 05/04/18 15:00 Temperature 91.4 F L 91.2 F L 91.0 F L Pulse Rate 87 87 91 H Respiratory Rate 24 24 24 Blood Pressure 95/67 L Pulse Oximetry 97 98 99 05/04/18 15:15 05/04/18 15:28 05/04/18 15:30 Temperature 91.0 F L 91.2 F L Pulse Rate 92 H 91 H Respiratory Rate 24 24 24 Blood Pressure Pulse Oximetry 99 98 98 05/04/18 15:45 05/04/18 16:00 05/04/18 16:15 Temperature 91.4 F L 91.4 F L 91.4 F L Pulse Rate 90 91 H 89 Respiratory Rate 24 24 23 Blood Pressure 86/64 L Pulse Oximetry 98 97 96 05/04/18 16:30 05/04/18 16:45 05/04/18 17:00 Temperature 91.4 F L 91.4 F L 91.2 F L Pulse Rate 89 90 90 Respiratory Rate 24 16 24 Blood Pressure 87/55 L Pulse Oximetry 95 93 L 95 05/04/18 17:15 05/04/18 17:30 05/04/18 17:45 Temperature 91.0 F L 91.0 F L 91.0 F L Pulse Rate 90 91 H 92 H Respiratory Rate 24 24 24 Blood Pressure Pulse Oximetry 96 96 96 05/04/18 18:00 05/04/18 18:15 05/04/18 18:30 Temperature 91.2 F L 91.2 F L 91.4 F L Pulse Rate 91 H 92 H 90 Respiratory Rate 24 24 24 Blood Pressure 81/51 L Pulse Oximetry 97 97 96 05/04/18 18:45 05/04/18 19:00 05/04/18 19:01 Temperature 91.4 F L 91.2 F L 91.2 F L Pulse Rate 89 77 78 Respiratory Rate 24 24 24 Blood Pressure 86/51 L Pulse Oximetry 96 95 95 05/04/18 19:15 05/04/18 19:30 05/04/18 19:35 Temperature 91.2 F L 91.2 F L Pulse Rate 79 79 79 Respiratory Rate 24 24 24 Blood Pressure Pulse Oximetry 95 98 98 05/04/18 19:45 05/04/18 20:00 05/04/18 20:04 Temperature 91.0 F L 91.2 F L 91.2 F L Pulse Rate 80 81 80 Respiratory Rate 24 24 24 Blood Pressure 97/63 L 104/59 L Pulse Oximetry 100 96 96 05/04/18 20:15 05/04/18 20:30 05/04/18 20:45 Temperature 91.2 F L 91.2 F L 91.2 F L Pulse Rate 80 80 89 Respiratory Rate 24 24 24 Blood Pressure Pulse Oximetry 96 95 94 L 05/04/18 21:00 05/04/18 21:02 05/04/18 21:15 Temperature 91.2 F L 91.2 F L 91.2 F L Pulse Rate 91 H 91 H 88 Respiratory Rate 24 24 24 Blood Pressure 124/83 Pulse Oximetry 94 L 91 L 75 L 05/04/18 21:30 05/04/18 21:45 05/04/18 22:00 Temperature 91.0 F L 91.0 F L 91.0 F L Pulse Rate 89 91 H 92 H Respiratory Rate 24 24 24 Blood Pressure 124/85 Pulse Oximetry 74 L 73 L 74 L 05/04/18 22:07 05/04/18 22:15 05/04/18 22:30 Temperature 91.0 F L 91.0 F L Pulse Rate 91 H 78 79 Respiratory Rate 24 24 Blood Pressure Pulse Oximetry 74 L 72 L 05/04/18 22:45 05/04/18 23:00 05/04/18 23:15 Temperature 91.0 F L 91.4 F L 91.6 F L Pulse Rate 80 82 82 Respiratory Rate 24 24 24 Blood Pressure 114/79 Pulse Oximetry 76 L 75 L 77 L 05/04/18 23:30 05/04/18 23:45 05/05/18 00:00 Temperature 91.8 F L 92.1 F L 92.3 F L Pulse Rate 82 81 80 Respiratory Rate 24 24 24 Blood Pressure Pulse Oximetry 90 L 86 L 05/05/18 00:03 05/05/18 00:15 05/05/18 00:30 Temperature 92.3 F L 92.3 F L 92.5 F L Pulse Rate 80 77 76 Respiratory Rate 24 24 24 Blood Pressure 152/93 H Pulse Oximetry 68 L 67 L 68 L 05/05/18 00:45 05/05/18 01:00 05/05/18 01:04 Temperature 92.5 F L 92.5 F L 92.5 F L Pulse Rate 76 79 79 Respiratory Rate 24 24 24 Blood Pressure 102/66 Pulse Oximetry 66 L 64 L 93 L 05/05/18 01:15 05/05/18 01:30 05/05/18 01:45 Temperature 92.5 F L 92.5 F L 92.5 F L Pulse Rate 80 81 80 Respiratory Rate 24 24 24 Blood Pressure Pulse Oximetry 05/05/18 02:00 05/05/18 02:15 05/05/18 02:19 Temperature 92.7 F L 92.8 F L 92.8 F L Pulse Rate 77 76 76 Respiratory Rate 24 24 24 Blood Pressure 101/67 Pulse Oximetry 05/05/18 02:30 05/05/18 02:45 05/05/18 03:00 Temperature 92.8 F L 93.0 F L 93.2 F L Pulse Rate 76 76 76 Respiratory Rate 24 24 24 Blood Pressure Pulse Oximetry 05/05/18 03:15 05/05/18 03:30 05/05/18 03:45 Temperature 93.2 F L 93.4 F L 93.4 F L Pulse Rate 74 73 74 Respiratory Rate 24 24 24 Blood Pressure Pulse Oximetry 05/05/18 03:56 05/05/18 04:00 05/05/18 04:15 Temperature 93.4 F L 93.6 F L Pulse Rate 73 79 86 Respiratory Rate 24 24 24 Blood Pressure Pulse Oximetry 05/05/18 04:30 05/05/18 04:45 05/05/18 05:00 Temperature 93.6 F L 93.7 F L 93.7 F L Pulse Rate 87 78 180 H Respiratory Rate 24 24 24 Blood Pressure Pulse Oximetry 05/05/18 05:15 05/05/18 05:30 05/05/18 06:11 Temperature 93.9 F L 93.9 F L Pulse Rate 85 83 79 Respiratory Rate 24 24 Blood Pressure Pulse Oximetry Intake & Output 05/04/18 05/05/18 05/05/18 18:59 06:59 18:59 Intake Total 1922 2641.2 / 2641.2 Output Total 223 / 223 Balance 1920 / 1920 2418.2 / 2418.2 Weight 96.5 kg Intake: IV 1922 2641.2 / 2641.2 Nimbex Inj 100 MG In NS Inj 240 462 / 462 250 / 250 ML @ 1 MCG/KG/MIN 12.72 mls/hr IV.CONT TITRATE PRN Rx#: [id number] Diprivan 1000 mg/100 ml Inj 1, 62 / 62 000 mg In 100 ml @ 5 MCG/KG/MIN 2.545 mls/hr IV.CONT TITRATE PRN Rx#:[id number] Sodium Bicarbonate 8.4% Inj 150 1134 / 1134 MEQ In D5W Inj 850 ML @ 125 mls/hr IV.CONT .Q8H [facility] Rx#: [id number] Sodium Bicarbonate 8.4% Inj 150 1150 / 1150 MEQ In 1/2 Normal Saline Inj 1 ,000 ML @ 125 mls/hr IV.CONT . Q9H12M [facility] Rx#:[id number] Magnesium Sulfate Inj 2 GM In 100 / 100 NS Inj 96 ML @ 50 mls/hr IV.SIG ONCE ONE Rx#:[id number] MVI-12 Inj 10 ML Thiamine Inj 511.2 / 511.2 100 MG Folvite Inj 1 MG In NS Inj 500 ML @ 125 mls/hr IV.SIG Q24H [facility] Rx#:[id number] Levophed Inj 4 MG In NS Inj 246 227 / 227 250 / 250 ML @ 2 MCG/MIN 7.5 mls/hr IV. SIG TITRATE PRN Rx#:[id number] KCl 40 mEq Premix Inj 40 meq In 200 / 200 100 ml @ 25 mls/hr IV.SIG Q4H [facility] Rx#:[id number] fentaNYL 10 mcg/mL Premix Drip 118 / 118 2,500 mcg In 250 ml @ 50 MCG/HR 5 mls/hr IV.SIG TITRATE PRN Rx #:[id number] Output: Urine 23 / 23 Urine Amount (Catheter) 2 / 2 0 / 0 Indwelling Temp Sensing 2 / 2 0 / 0 Catheter Gastric Drainage 200 / 200 Oral Orogastric Tube 200 / 200 Other: Date of Last Bowel Movement 05/05/18 # Bowel Movements 1 Narrative: GENERAL: Critically ill, intubated and sedated. Hypothermia protocol. SKIN: Warm and dry. ENT: No nasal bleeding or discharge. Mucous membranes pink and moist. NECK: Trachea midline. No JVD. CARDIOVASCULAR: Normal rate, regular rhythm. RESPIRATORY: No accessory muscle use. Diminished to auscultation. No rales, rhonchi, or wheezing GASTROINTESTINAL: Abdomen soft, non-tender, large MUSCULOSKELETAL: Extremities without clubbing, cyanosis, or edema. No obvious deformities. Results - Lab Results 05/05/18 05:28 05/05/18 07:35 Most recent lab results ABG pH 7.01 (7.380-7.420) L* 05/05/18 08:06 ABG pCO2 54 mmHg (38-42) H* 05/05/18 08:06 ABG pO2 99 mmHG (61-120) 05/05/18 08:06 ABG HCO3 13 mmol/L (22-26) L* 05/05/18 08:06 Calcium 9.0 mg/dL (8.5-10.1) D 05/05/18 07:35 Phosphorus 15.5 mg/dL (2.5-4.9) H D 05/05/18 05:28 Magnesium 3.2 mg/dL (1.5-2.5) H D 05/05/18 05:28 - Image Kidney/bladder ultrasound: pending Assessment and Plan - Assessment (1) Acute kidney injury Code(s): N17.9 - Acute kidney failure, unspecified Status: Acute Plan: Acute kidney injury with hyperkalemia Emergent dialysis arranged Vas cath placed per CC Patient seen in AM, patient coded prior to hemodialysis. <Jemma Holland Q - Last Filed: 05/05/18 17:46> History of Present Illness Primary Care Provider: UNKNOWN [facility] - Medical History Medical History: Medical History (Last Reviewed 05/04/18 @ 08:08 by Allan Osorio) COPD (chronic obstructive pulmonary disease) HTN (hypertension) - Surgical History Surgical History: Surgical History (Last Reviewed 05/04/18 @ 08:08 by Allan Osorio) Surgical history unknown - Family History Family History: Family History (Last Updated 05/03/18 @ 17:08 by Griffin Ceballos MD) Other Family history unknown Exam Vital signs: Vital Signs 05/04/18 17:45 05/04/18 18:00 05/04/18 18:15 Temperature 91.0 F L 91.2 F L 91.2 F L Pulse Rate 92 H 91 H 92 H Respiratory Rate 24 24 24 Blood Pressure 81/51 L Pulse Oximetry 96 97 97 05/04/18 18:30 05/04/18 18:45 05/04/18 19:00 Temperature 91.4 F L 91.4 F L 91.2 F L Pulse Rate 90 89 77 Respiratory Rate 24 24 24 Blood Pressure Pulse Oximetry 96 96 95 05/04/18 19:01 05/04/18 19:15 05/04/18 19:30 Temperature 91.2 F L 91.2 F L 91.2 F L Pulse Rate 78 79 79 Respiratory Rate 24 24 24 Blood Pressure 86/51 L Pulse Oximetry 95 95 98 05/04/18 19:35 05/04/18 19:45 05/04/18 20:00 Temperature 91.0 F L 91.2 F L Pulse Rate 79 80 81 Respiratory Rate 24 24 24 Blood Pressure 97/63 L Pulse Oximetry 98 100 96 05/04/18 20:04 05/04/18 20:15 05/04/18 20:30 Temperature 91.2 F L 91.2 F L 91.2 F L Pulse Rate 80 80 80 Respiratory Rate 24 24 24 Blood Pressure 104/59 L Pulse Oximetry 96 96 95 05/04/18 20:45 05/04/18 21:00 05/04/18 21:02 Temperature 91.2 F L 91.2 F L 91.2 F L Pulse Rate 89 91 H 91 H Respiratory Rate 24 24 24 Blood Pressure 124/83 Pulse Oximetry 94 L 94 L 91 L 05/04/18 21:15 05/04/18 21:30 05/04/18 21:45 Temperature 91.2 F L 91.0 F L 91.0 F L Pulse Rate 88 89 91 H Respiratory Rate 24 24 24 Blood Pressure Pulse Oximetry 75 L 74 L 73 L 05/04/18 22:00 05/04/18 22:07 05/04/18 22:15 Temperature 91.0 F L 91.0 F L Pulse Rate 92 H 91 H 78 Respiratory Rate 24 24 Blood Pressure 124/85 Pulse Oximetry 74 L 74 L 05/04/18 22:30 05/04/18 22:45 05/04/18 23:00 Temperature 91.0 F L 91.0 F L 91.4 F L Pulse Rate 79 80 82 Respiratory Rate 24 24 24 Blood Pressure 114/79 Pulse Oximetry 72 L 76 L 75 L 05/04/18 23:15 05/04/18 23:30 05/04/18 23:45 Temperature 91.6 F L 91.8 F L 92.1 F L Pulse Rate 82 82 81 Respiratory Rate 24 24 24 Blood Pressure Pulse Oximetry 77 L 90 L 05/05/18 00:00 05/05/18 00:03 05/05/18 00:15 Temperature 92.3 F L 92.3 F L 92.3 F L Pulse Rate 80 80 77 Respiratory Rate 24 24 24 Blood Pressure 152/93 H Pulse Oximetry 86 L 68 L 67 L 05/05/18 00:30 05/05/18 00:45 05/05/18 01:00 Temperature 92.5 F L 92.5 F L 92.5 F L Pulse Rate 76 76 79 Respiratory Rate 24 24 24 Blood Pressure Pulse Oximetry 68 L 66 L 64 L 05/05/18 01:04 05/05/18 01:15 05/05/18 01:30 Temperature 92.5 F L 92.5 F L 92.5 F L Pulse Rate 79 80 81 Respiratory Rate 24 24 24 Blood Pressure 102/66 Pulse Oximetry 93 L 05/05/18 01:45 05/05/18 02:00 05/05/18 02:15 Temperature 92.5 F L 92.7 F L 92.8 F L Pulse Rate 80 77 76 Respiratory Rate 24 24 24 Blood Pressure Pulse Oximetry 05/05/18 02:19 05/05/18 02:30 05/05/18 02:45 Temperature 92.8 F L 92.8 F L 93.0 F L Pulse Rate 76 76 76 Respiratory Rate 24 24 24 Blood Pressure 101/67 Pulse Oximetry 05/05/18 03:00 05/05/18 03:15 05/05/18 03:30 Temperature 93.2 F L 93.2 F L 93.4 F L Pulse Rate 76 74 73 Respiratory Rate 24 24 24 Blood Pressure Pulse Oximetry 05/05/18 03:45 05/05/18 03:56 05/05/18 04:00 Temperature 93.4 F L 93.4 F L Pulse Rate 74 73 79 Respiratory Rate 24 24 24 Blood Pressure Pulse Oximetry 05/05/18 04:15 05/05/18 04:30 05/05/18 04:45 Temperature 93.6 F L 93.6 F L 93.7 F L Pulse Rate 86 87 78 Respiratory Rate 24 24 24 Blood Pressure Pulse Oximetry 05/05/18 05:00 05/05/18 05:15 05/05/18 05:30 Temperature 93.7 F L 93.9 F L 93.9 F L Pulse Rate 180 H 85 83 Respiratory Rate 24 24 24 Blood Pressure Pulse Oximetry 05/05/18 05:45 05/05/18 06:00 05/05/18 06:11 Temperature 93.9 F L 93.9 F L Pulse Rate 80 79 79 Respiratory Rate 24 24 Blood Pressure Pulse Oximetry 05/05/18 06:15 05/05/18 06:30 05/05/18 06:45 Temperature 94.1 F L 94.1 F L 94.1 F L Pulse Rate 79 102 H 93 H Respiratory Rate 24 24 24 Blood Pressure Pulse Oximetry 05/05/18 07:00 05/05/18 07:15 05/05/18 07:30 Temperature 94.3 F L 94.3 F L 94.3 F L Pulse Rate 92 H 83 0 L Respiratory Rate 24 24 24 Blood Pressure Pulse Oximetry 05/05/18 07:45 05/05/18 08:00 05/05/18 08:15 Temperature 94.3 F L 94.3 F L 94.1 F L Pulse Rate 0 L 84 80 Respiratory Rate 24 24 24 Blood Pressure 102/68 Pulse Oximetry 88 L 92 L 92 L 05/05/18 08:30 05/05/18 08:45 05/05/18 09:00 Temperature 93.9 F L 93.6 F L 93.4 F L Pulse Rate 0 L 0 L 0 L Respiratory Rate 24 24 26 H Blood Pressure Pulse Oximetry 86 L 86 L 05/05/18 09:15 05/05/18 09:30 05/05/18 09:45 Temperature 93.0 F L 92.7 F L 91.9 F L Pulse Rate 0 L 0 L 0 L Respiratory Rate 26 H 28 H 32 H Blood Pressure Pulse Oximetry 63 L 42 L Intake & Output 05/04/18 05/05/18 05/05/18 18:59 06:59 18:59 Intake Total 192 / 1922 2641.2 / 2641.2 Output Total 223 / 223 0 / 0 Balance 1920 / 1920 2418.2 / 2418.2 0 / 0 Weight 96.5 kg Intake: IV 1922 / 1922 2641.2 / 2641.2 Nimbex Inj 100 MG In NS Inj 240 462 / 462 250 / 250 ML @ 1 MCG/KG/MIN 12.72 mls/hr IV.CONT TITRATE PRN Rx#: [id number] Diprivan 1000 mg/100 ml Inj 1, 62 / 62 000 mg In 100 ml @ 5 MCG/KG/MIN 2.545 mls/hr IV.CONT TITRATE PRN Rx#:[id number] Sodium Bicarbonate 8.4% Inj 150 1134 / 1134 MEQ In D5W Inj 850 ML @ 125 mls/hr IV.CONT .Q8H [facility] Rx#: [id number] Sodium Bicarbonate 8.4% Inj 150 1150 / 1150 MEQ In 1/2 Normal Saline Inj 1 ,000 ML @ 125 mls/hr IV.CONT . Q9H12M [facility] Rx#:[id number] Magnesium Sulfate Inj 2 GM In 100 / 100 NS Inj 96 ML @ 50 mls/hr IV.SIG ONCE ONE Rx#:[id number] MVI-12 Inj 10 ML Thiamine Inj 511.2 / 511.2 100 MG Folvite Inj 1 MG In NS Inj 500 ML @ 125 mls/hr IV.SIG Q24H [facility] Rx#:[id number] Levophed Inj 4 MG In NS Inj 246 227 / 227 250 / 250 ML @ 2 MCG/MIN 7.5 mls/hr IV. SIG TITRATE PRN Rx#:[id number] KCl 40 mEq Premix Inj 40 meq In 200 / 200 100 ml @ 25 mls/hr IV.SIG Q4H [facility] Rx#:[id number] fentaNYL 10 mcg/mL Premix Drip 118 / 118 2,500 mcg In 250 ml @ 50 MCG/HR 5 mls/hr IV.SIG TITRATE PRN Rx #:[id number] Output: Urine 23 / 23 Urine Amount (Catheter) 2 / 2 0 / 0 0 / 0 Indwelling Temp Sensing 2 / 2 0 / 0 0 / 0 Catheter Gastric Drainage 200 / 200 Oral Orogastric Tube 200 / 200 Other: Date of Last Bowel Movement 05/05/18 # Bowel Movements 1 Results - Lab Results 05/05/18 05:28 05/05/18 07:35 Most recent lab results ABG pH 7.01 (7.380-7.420) L* 05/05/18 08:06 ABG pCO2 54 mmHg (38-42) H* 05/05/18 08:06 ABG pO2 99 mmHG (61-120) 05/05/18 08:06 ABG HCO3 13 mmol/L (22-26) L* 05/05/18 08:06 Calcium 9.0 mg/dL (8.5-10.1) D 05/05/18 07:35 Phosphorus 15.5 mg/dL (2.5-4.9) H D 05/05/18 05:28 Magnesium 3.2 mg/dL (1.5-2.5) H D 05/05/18 05:28 Assessment and Plan - Assessment (1) Acute kidney injury Code(s): N17.9 - Acute kidney failure, unspecified Status: Acute Plan: Case was discussed with Dr. Valladares, Patient with post cardiac arrest and has DARLYN with severe Hyperkalemia. Urgent HD arranged in AM, but patient coded and did not make it.
--- NOTE | 2018-05-05 09:38 | XR ---
EXAM DATE: 05/05/2018 9:31 AM EST AGE/SEX: 72 years / Male INDICATIONS: Central line placement. CLINICAL DATA: This is the patient's subsequent encounter. Patient reports that signs and symptoms h ave been present for 4 - 6 days and indicates a pain score of Nonresponsive. MEDICAL/SURGICAL HISTORY: Non-responsive. Non-responsive. COMPARISON: [facility], CHEST 1V SINGLE AP, 05/05/2018. . FINDINGS: Stable ETT, right IJ central line and NGT. Interval placement of left IJ temporary dialysis catheter with tip at the brachiocephalic SVC junction. Mild perihilar streaky opacities. Cardiac silhouette is within normal limits for portable technique. Remainder of the exam is unchanged. CONCLUSION: 1. Left IJ central line tip at the brachiocephalic SVC junction. No pneumothorax. 2. Remaining tubes and lines are stable. 3. Mild pulmonary vascular/interstitial congestion. Electronically signed by: Ashutosh Baez MD Board Certified Radiologist 05/05/2018 9:37 AM REGGIE Ceja
[2018-05-05 09:53] VITALS: BP 102/68; PULSE 0; RESP 32; TEMP 91.9; O2SAT 42
--- NOTE | 2018-05-05 10:09 | P.PCN ---
Date of procedure: 05/05/18 Pre-op diagnosis: Hyperkalemia Post-op diagnosis: same Procedure: Vascular cath placement left internal jugular Diagnosis: Left internal jugular Indications: Emergent dialysis Consent: Emergent Anesthesia: None Description of the Procedure: The patient was placed in the supine, mild- Trendelenburg position. The area was prepped and draped sterilely. A 19g needle was inserted under negative pressure aspiration and dark venous blood was obtained. A guidewire was inserted easily without resistance. A small incision was made using a #11 blade. Using a modified Seldinger technique, the dilator and 11.5 x 20 cm vascular catheter were advanced over the guidewire without resistance. All ports were aspirated and flushed, and had brisk blood return. The line was secured at at the skin using 2-0 silk interrupted sutures. A Biopatch and Transparent sterile dressing were applied. There were no immediate complications noted. There was minimal EBL. The patient tolerated the procedure well. Ultrasound Guidance: Ultrasound guidance was used to identify the left internal jugular. The vascular anatomy was normal. The vessel was cannulated under direct , real-time ultrasound visualization. After placement of the guidewire, confirmation of the guidewire in the lumen of the vessel was made using ultrasound visualization, before dilation of the tract. A Chest x-ray has been ordered. I personally performed the procedure. Anesthesia: none Estimated blood loss (mL): 5 Condition: critical Disposition: ICU (Patient and ICU on hypothermia protocol status post asystolic cardiac arrest)
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
--- NOTE | 2018-05-05 10:32 | P.PN ---
Subjective Interval history: Date:05/05/18 Procedure: Cardiopulmonary resuscitation Indication:Cardiac arrest Details of procedure: The patient remained hemodynamically unstable since admission and required escalation of vasopressors. This a.m. the patient was noted to have severe hyperkalemia. The patient was noted to be on epinephrine, phenylephrine, vasopressin, and levophed infusions. In conjunction,the patient was on a sodium bicarbonate infusion with escalating doses, and receiving all treatments for hyperkalemia to include IV boluses of sodium bicarbonate insulin and D50, Kayexalate, albuterol nebulizer treatments, and Lasix IV push. Emergent dialysis was planned, however, the patient developed ventricular escape cardiac arrest (Initial rhythm) at 0914. Per ACLS protocol, patient received CPR, manual bag-valve ventilation via ETT, epinephrine, calcium chloride, sodium bicarb, insulin and D50 multiple dosages. The patient subsequently went into V. tach, the patient was defibrillated per ACLS protocol. The patient subsequently went into asystole, with IV epinephrine and continued CPR. after [ ] minutes resuscitation we were unable to restore spontaneous circulation. Patient was pronounced at 0946 hours. Care was consulted on 05/04/18 to locate family, thus far inability to locate any family since admission . Physical Exam Vital signs: Vital Signs 05/04/18 10:30 05/04/18 10:45 05/04/18 11:00 Temperature 91.2 F L 91.2 F L 91.4 F L Pulse Rate 87 89 87 Respiratory Rate 24 24 24 Blood Pressure 91/69 L Pulse Oximetry 96 95 96 05/04/18 11:15 05/04/18 11:30 05/04/18 11:45 Temperature 91.4 F L 91.4 F L 91.4 F L Pulse Rate 86 88 88 Respiratory Rate 24 24 24 Blood Pressure Pulse Oximetry 95 97 96 05/04/18 11:47 05/04/18 12:00 05/04/18 12:01 Temperature 91.4 F L 91.4 F L Pulse Rate 90 90 Respiratory Rate 24 24 24 Blood Pressure 85/61 L 85/61 L Pulse Oximetry 96 97 96 05/04/18 12:15 05/04/18 12:30 05/04/18 12:45 Temperature 91.4 F L 91.4 F L 91.4 F L Pulse Rate 91 H 90 91 H Respiratory Rate 24 24 24 Blood Pressure Pulse Oximetry 97 97 98 05/04/18 13:00 05/04/18 13:15 05/04/18 13:30 Temperature 91.4 F L 91.4 F L 91.6 F L Pulse Rate 92 H 92 H 91 H Respiratory Rate 24 24 24 Blood Pressure 88/68 L Pulse Oximetry 99 100 100 05/04/18 13:45 05/04/18 14:00 05/04/18 14:01 Temperature 91.6 F L 91.6 F L 91.6 F L Pulse Rate 90 88 87 Respiratory Rate 24 24 24 Blood Pressure 115/59 L Pulse Oximetry 99 99 99 05/04/18 14:15 05/04/18 14:28 05/04/18 14:30 Temperature 91.4 F L 91.4 F L 91.4 F L Pulse Rate 87 86 87 Respiratory Rate 24 24 24 Blood Pressure 91/59 L Pulse Oximetry 98 98 97 05/04/18 14:45 05/04/18 15:00 05/04/18 15:15 Temperature 91.2 F L 91.0 F L 91.0 F L Pulse Rate 87 91 H 92 H Respiratory Rate 24 24 24 Blood Pressure 95/67 L Pulse Oximetry 98 99 99 05/04/18 15:28 05/04/18 15:30 05/04/18 15:45 Temperature 91.2 F L 91.4 F L Pulse Rate 91 H 90 Respiratory Rate 24 24 24 Blood Pressure Pulse Oximetry 98 98 98 05/04/18 16:00 05/04/18 16:15 05/04/18 16:30 Temperature 91.4 F L 91.4 F L 91.4 F L Pulse Rate 91 H 89 89 Respiratory Rate 24 23 24 Blood Pressure 86/64 L Pulse Oximetry 97 96 95 05/04/18 16:45 05/04/18 17:00 05/04/18 17:15 Temperature 91.4 F L 91.2 F L 91.0 F L Pulse Rate 90 90 90 Respiratory Rate 16 24 24 Blood Pressure 87/55 L Pulse Oximetry 93 L 95 96 05/04/18 17:30 05/04/18 17:45 05/04/18 18:00 Temperature 91.0 F L 91.0 F L 91.2 F L Pulse Rate 91 H 92 H 91 H Respiratory Rate 24 24 24 Blood Pressure 81/51 L Pulse Oximetry 96 96 97 05/04/18 18:15 05/04/18 18:30 05/04/18 18:45 Temperature 91.2 F L 91.4 F L 91.4 F L Pulse Rate 92 H 90 89 Respiratory Rate 24 24 24 Blood Pressure Pulse Oximetry 97 96 96 05/04/18 19:00 05/04/18 19:01 05/04/18 19:15 Temperature 91.2 F L 91.2 F L 91.2 F L Pulse Rate 77 78 79 Respiratory Rate 24 24 24 Blood Pressure 86/51 L Pulse Oximetry 95 95 95 05/04/18 19:30 05/04/18 19:35 05/04/18 19:45 Temperature 91.2 F L 91.0 F L Pulse Rate 79 79 80 Respiratory Rate 24 24 24 Blood Pressure Pulse Oximetry 98 98 100 05/04/18 20:00 05/04/18 20:04 05/04/18 20:15 Temperature 91.2 F L 91.2 F L 91.2 F L Pulse Rate 81 80 80 Respiratory Rate 24 24 24 Blood Pressure 97/63 L 104/59 L Pulse Oximetry 96 96 96 05/04/18 20:30 05/04/18 20:45 05/04/18 21:00 Temperature 91.2 F L 91.2 F L 91.2 F L Pulse Rate 80 89 91 H Respiratory Rate 24 24 24 Blood Pressure Pulse Oximetry 95 94 L 94 L 05/04/18 21:02 05/04/18 21:15 05/04/18 21:30 Temperature 91.2 F L 91.2 F L 91.0 F L Pulse Rate 91 H 88 89 Respiratory Rate 24 24 24 Blood Pressure 124/83 Pulse Oximetry 91 L 75 L 74 L 05/04/18 21:45 05/04/18 22:00 05/04/18 22:07 Temperature 91.0 F L 91.0 F L Pulse Rate 91 H 92 H 91 H Respiratory Rate 24 24 Blood Pressure 124/85 Pulse Oximetry 73 L 74 L 05/04/18 22:15 05/04/18 22:30 05/04/18 22:45 Temperature 91.0 F L 91.0 F L 91.0 F L Pulse Rate 78 79 80 Respiratory Rate 24 24 24 Blood Pressure Pulse Oximetry 74 L 72 L 76 L 05/04/18 23:00 05/04/18 23:15 05/04/18 23:30 Temperature 91.4 F L 91.6 F L 91.8 F L Pulse Rate 82 82 82 Respiratory Rate 24 24 24 Blood Pressure 114/79 Pulse Oximetry 75 L 77 L 05/04/18 23:45 05/05/18 00:00 05/05/18 00:03 Temperature 92.1 F L 92.3 F L 92.3 F L Pulse Rate 81 80 80 Respiratory Rate 24 24 24 Blood Pressure 152/93 H Pulse Oximetry 90 L 86 L 68 L 05/05/18 00:15 05/05/18 00:30 05/05/18 00:45 Temperature 92.3 F L 92.5 F L 92.5 F L Pulse Rate 77 76 76 Respiratory Rate 24 24 24 Blood Pressure Pulse Oximetry 67 L 68 L 66 L 05/05/18 01:00 05/05/18 01:04 05/05/18 01:15 Temperature 92.5 F L 92.5 F L 92.5 F L Pulse Rate 79 79 80 Respiratory Rate 24 24 24 Blood Pressure 102/66 Pulse Oximetry 64 L 93 L 05/05/18 01:30 05/05/18 01:45 05/05/18 02:00 Temperature 92.5 F L 92.5 F L 92.7 F L Pulse Rate 81 80 77 Respiratory Rate 24 24 24 Blood Pressure Pulse Oximetry 05/05/18 02:15 05/05/18 02:19 05/05/18 02:30 Temperature 92.8 F L 92.8 F L 92.8 F L Pulse Rate 76 76 76 Respiratory Rate 24 24 24 Blood Pressure 101/67 Pulse Oximetry 05/05/18 02:45 05/05/18 03:00 05/05/18 03:15 Temperature 93.0 F L 93.2 F L 93.2 F L Pulse Rate 76 76 74 Respiratory Rate 24 24 24 Blood Pressure Pulse Oximetry 05/05/18 03:30 05/05/18 03:45 05/05/18 03:56 Temperature 93.4 F L 93.4 F L Pulse Rate 73 74 73 Respiratory Rate 24 24 24 Blood Pressure Pulse Oximetry 05/05/18 04:00 05/05/18 04:15 05/05/18 04:30 Temperature 93.4 F L 93.6 F L 93.6 F L Pulse Rate 79 86 87 Respiratory Rate 24 24 24 Blood Pressure Pulse Oximetry 05/05/18 04:45 05/05/18 05:00 05/05/18 05:15 Temperature 93.7 F L 93.7 F L 93.9 F L Pulse Rate 78 180 H 85 Respiratory Rate 24 24 24 Blood Pressure Pulse Oximetry 05/05/18 05:30 05/05/18 05:45 05/05/18 06:00 Temperature 93.9 F L 93.9 F L 93.9 F L Pulse Rate 83 80 79 Respiratory Rate 24 24 24 Blood Pressure Pulse Oximetry 05/05/18 06:11 05/05/18 06:15 05/05/18 06:30 Temperature 94.1 F L 94.1 F L Pulse Rate 79 79 102 H Respiratory Rate 24 24 Blood Pressure Pulse Oximetry 05/05/18 06:45 05/05/18 07:00 05/05/18 07:15 Temperature 94.1 F L 94.3 F L 94.3 F L Pulse Rate 93 H 92 H 83 Respiratory Rate 24 24 24 Blood Pressure Pulse Oximetry 05/05/18 07:30 05/05/18 07:45 05/05/18 08:00 Temperature 94.3 F L 94.3 F L 94.3 F L Pulse Rate 0 L 0 L 84 Respiratory Rate 24 24 24 Blood Pressure 102/68 Pulse Oximetry 88 L 92 L 05/05/18 08:15 05/05/18 08:30 05/05/18 08:45 Temperature 94.1 F L 93.9 F L 93.6 F L Pulse Rate 80 0 L 0 L Respiratory Rate 24 24 24 Blood Pressure Pulse Oximetry 92 L 86 L 86 L 05/05/18 09:00 05/05/18 09:15 05/05/18 09:30 Temperature 93.4 F L 93.0 F L 92.7 F L Pulse Rate 0 L 0 L 0 L Respiratory Rate 26 H 26 H 28 H Blood Pressure Pulse Oximetry 63 L 05/05/18 09:45 Temperature 91.9 F L Pulse Rate 0 L Respiratory Rate 32 H Blood Pressure Pulse Oximetry 42 L Intake & Output 05/04/18 05/05/18 05/05/18 18:59 06:59 18:59 Intake Total 1922 / 1923 2641.2 / 2641.2 Output Total 223 / 223 Balance 1921 / 1920 2418.2 / 2418.2 Weight 96.5 kg Intake: IV 1922 / 1922 2641.2 / 2641.2 Nimbex Inj 100 MG In NS Inj 240 462 / 462 250 / 250 ML @ 1 MCG/KG/MIN 12.72 mls/hr IV.CONT TITRATE PRN Rx#: [id number] Diprivan 1000 mg/100 ml Inj 1, 62 / 62 000 mg In 100 ml @ 5 MCG/KG/MIN 2.545 mls/hr IV.CONT TITRATE PRN Rx#:[id number] Sodium Bicarbonate 8.4% Inj 150 1134 / 1134 MEQ In D5W Inj 850 ML @ 125 mls/hr IV.CONT .Q8H GLORIA Rx#: [id number] Sodium Bicarbonate 8.4% Inj 150 1150 / 1150 MEQ In 1/2 Normal Saline Inj 1 ,000 ML @ 125 mls/hr IV.CONT . Q9H12M GLORIA Rx#:[id number] Magnesium Sulfate Inj 2 GM In 100 / 100 NS Inj 96 ML @ 50 mls/hr IV.SIG ONCE ONE Rx#:[id number] MVI-12 Inj 10 ML Thiamine Inj 511.2 / 511.2 100 MG Folvite Inj 1 MG In NS Inj 500 ML @ 125 mls/hr IV.SIG Q24H GLORIA Rx#:[id number] Levophed Inj 4 MG In NS Inj 246 227 / 227 250 / 250 ML @ 2 MCG/MIN 7.5 mls/hr IV. SIG TITRATE PRN Rx#:[id number] KCl 40 mEq Premix Inj 40 meq In 200 / 200 100 ml @ 25 mls/hr IV.SIG Q4H GLORIA Rx#:[id number] fentaNYL 10 mcg/mL Premix Drip 118 / 118 2,500 mcg In 250 ml @ 50 MCG/HR 5 mls/hr IV.SIG TITRATE PRN Rx #:[id number] Output: Urine / Urine Amount (Catheter) 2 / 2 0 / 0 Indwelling Temp Sensing 2 / 2 0 / 0 Catheter Gastric Drainage 200 / 200 Oral Orogastric Tube 200 / 200 Other: Date of Last Bowel Movement 05/05/18 # Bowel Movements 1 - Urinary Catheter Management Indwelling Urethral Catheter Cath placed during this visit: yes, but has since been removed by the nurse Reason for continuing: Decision to DC catheter Insertion date: 05/03/18 Insertion time: 16:22 Removal date: 05/03/18 Removal time: 20:00 Indwelling Temp Sensing Catheter Cath placed during this visit: yes Reason for continuing: Hourly intake/output Insertion date: 05/03/18 Insertion time: 20:05 Results - Labs CBC & Chem 7: 05/05/18 05:28 05/05/18 07:35 Laboratory Results - last 24 hr 05/03/18 05/04/18 05/04/18 18:58 11:20 11:20 WBC RBC Hgb Hct MCV MCH MCHC RDW Plt Count MPV Prelim Diff (Auto) Neut % (Auto) Lymph % (Auto) Kerr % (Auto) Eos % (Auto) Baso % (Auto) Neut # (Auto) Lymph # (Auto) Kerr # (Auto) Eos # (Auto) Baso # (Auto) WBC Differential Seg Neuts % (Manual) Band Neuts % (Manual) Lymphocytes % (Manual) Monocytes % (Manual) Metamyelocytes % (Man) Abs Neuts (Manual) Nucleated RBCs/100 WBC Differential Comment Platelet Estimate Platelet Morphology APTT 76.3 H D Puncture Site Patient Temperature O2 Saturation ABG pH ABG pCO2 ABG pO2 ABG HCO3 ABG O2 Content ABG Base Excess ABG Methemoglobin Micah Test VBG pH VBG pCO2 VBG pO2 VBG HCO3 VBG O2 Saturation VBG O2 Content VBG Base Excess VBG Carboxyhemoglobin VBG Methemoglobin Hemoglobin Carboxyhemoglobin O2 Delivery Device Vent Setting Inspired O2 Critical Value Sodium 143 Potassium 3.2 L Chloride 108 H Carbon Dioxide 19.5 L Anion Gap 16 H BUN 37 H Creatinine 3.09 H Estimated GFR 20 L POC Glucose 94 Random Glucose 275 H Lactic Acid Calcium 6.0 L* Calcium Adj for Albumin 7.7 L Phosphorus Magnesium 1.9 Total Bilirubin AST ALT Alkaline Phosphatase Ammonia Troponin I Total Protein Albumin 1.9 L 05/04/18 05/04/18 05/04/18 12:43 17:20 17:20 WBC RBC Hgb Hct MCV MCH MCHC RDW Plt Count MPV Prelim Diff (Auto) Neut % (Auto) Lymph % (Auto) Kerr % (Auto) Eos % (Auto) Baso % (Auto) Neut # (Auto) Lymph # (Auto) Kerr # (Auto) Eos # (Auto) Baso # (Auto) WBC Differential Seg Neuts % (Manual) Band Neuts % (Manual) Lymphocytes % (Manual) Monocytes % (Manual) Metamyelocytes % (Man) Abs Neuts (Manual) Nucleated RBCs/100 WBC Differential Comment Platelet Estimate Platelet Morphology APTT 176.7 H* D Puncture Site Art line Patient Temperature 98.6 O2 Saturation 94 ABG pH 7.21 L* ABG pCO2 46 H ABG pO2 90 ABG HCO3 18 L ABG O2 Content 19.5 ABG Base Excess -8.9 L ABG Methemoglobin 1.5 Micah Test Present VBG pH VBG pCO2 VBG pO2 VBG HCO3 VBG O2 Saturation VBG O2 Content VBG Base Excess VBG Carboxyhemoglobin VBG Methemoglobin Hemoglobin 14.7 Carboxyhemoglobin 0.2 O2 Delivery Device Ventilator Vent Setting 550/24/5peep Inspired O2 60 Critical Value Yes Sodium 144 Potassium 2.8 L* Chloride 107 Carbon Dioxide 20.8 L Anion Gap 16 H BUN 37 H Creatinine 3.29 H Estimated GFR 19 L POC Glucose Random Glucose 269 H Lactic Acid Calcium 5.7 L* Calcium Adj for Albumin 7.5 L Phosphorus Magnesium 1.8 Total Bilirubin AST ALT Alkaline Phosphatase Ammonia Troponin I Total Protein Albumin 1.7 L 05/04/18 05/04/18 05/05/18 20:31 22:44 00:38 WBC RBC Hgb Hct MCV MCH MCHC RDW Plt Count MPV Prelim Diff (Auto) Neut % (Auto) Lymph % (Auto) Kerr % (Auto) Eos % (Auto) Baso % (Auto) Neut # (Auto) Lymph # (Auto) Kerr # (Auto) Eos # (Auto) Baso # (Auto) WBC Differential Seg Neuts % (Manual) Band Neuts % (Manual) Lymphocytes % (Manual) Monocytes % (Manual) Metamyelocytes % (Man) Abs Neuts (Manual) Nucleated RBCs/100 WBC Differential Comment Platelet Estimate Platelet Morphology APTT 128.4 H* D 94.2 H* D Puncture Site Patient Temperature O2 Saturation ABG pH ABG pCO2 ABG pO2 ABG HCO3 ABG O2 Content ABG Base Excess ABG Methemoglobin Micah Test VBG pH VBG pCO2 VBG pO2 VBG HCO3 VBG O2 Saturation VBG O2 Content VBG Base Excess VBG Carboxyhemoglobin VBG Methemoglobin Hemoglobin Carboxyhemoglobin O2 Delivery Device Vent Setting Inspired O2 Critical Value Sodium Potassium Chloride Carbon Dioxide Anion Gap BUN Creatinine Estimated GFR POC Glucose 118 H Random Glucose Lactic Acid Calcium Calcium Adj for Albumin Phosphorus Magnesium Total Bilirubin AST ALT Alkaline Phosphatase Ammonia Troponin I Total Protein Albumin 05/05/18 05/05/18 05/05/18 01:09 05:05 05:28 WBC 6.6 RBC 3.58 L Hgb 12.3 L D Hct 37.3 L MCV 104.4 H MCH 34.4 H MCHC 32.9 RDW 14.2 Plt Count 122 L D MPV 9.0 Prelim Diff (Auto) Slide review pending Neut % (Auto) 85.3 H Lymph % (Auto) 12.7 Kerr % (Auto) 1.7 Eos % (Auto) 0.1 Baso % (Auto) 0.2 Neut # (Auto) 5.7 Lymph # (Auto) 0.8 L Kerr # (Auto) 0.1 Eos # (Auto) 0.0 Baso # (Auto) 0.0 WBC Differential Manual diff final Seg Neuts % (Manual) 9 L Band Neuts % (Manual) 80 H Lymphocytes % (Manual) 5 L Monocytes % (Manual) 2 Metamyelocytes % (Man) 4 H Abs Neuts (Manual) 6.1 Nucleated RBCs/100 WBC 1 H Differential Comment . Platelet Estimate Low L Platelet Morphology Normal APTT 74.4 H D Puncture Site [place] Patient Temperature 98.6 O2 Saturation 95 ABG pH 7.24 L* ABG pCO2 48 H ABG pO2 100 ABG HCO3 20 L ABG O2 Content 14.8 ABG Base Excess -6.6 L ABG Methemoglobin 1.5 Micah Test VBG pH VBG pCO2 VBG pO2 VBG HCO3 VBG O2 Saturation VBG O2 Content VBG Base Excess VBG Carboxyhemoglobin VBG Methemoglobin Hemoglobin 11.0 L Carboxyhemoglobin 0.1 O2 Delivery Device Vent Vent Setting See comments Inspired O2 60 Critical Value Yes Sodium Potassium Chloride Carbon Dioxide Anion Gap BUN Creatinine Estimated GFR POC Glucose Random Glucose Lactic Acid Calcium Calcium Adj for Albumin Phosphorus Magnesium Total Bilirubin AST ALT Alkaline Phosphatase Ammonia Troponin I Total Protein Albumin 05/05/18 05/05/18 05/05/18 05:28 05:28 05:28 WBC RBC Hgb Hct MCV MCH MCHC RDW Plt Count MPV Prelim Diff (Auto) Neut % (Auto) Lymph % (Auto) Kerr % (Auto) Eos % (Auto) Baso % (Auto) Neut # (Auto) Lymph # (Auto) Kerr # (Auto) Eos # (Auto) Baso # (Auto) WBC Differential Seg Neuts % (Manual) Band Neuts % (Manual) Lymphocytes % (Manual) Monocytes % (Manual) Metamyelocytes % (Man) Abs Neuts (Manual) Nucleated RBCs/100 WBC Differential Comment Platelet Estimate Platelet Morphology APTT Puncture Site Patient Temperature O2 Saturation ABG pH ABG pCO2 ABG pO2 ABG HCO3 ABG O2 Content ABG Base Excess ABG Methemoglobin Micah Test VBG pH VBG pCO2 VBG pO2 VBG HCO3 VBG O2 Saturation VBG O2 Content VBG Base Excess VBG Carboxyhemoglobin VBG Methemoglobin Hemoglobin Carboxyhemoglobin O2 Delivery Device Vent Setting Inspired O2 Critical Value Sodium 151 H Potassium 9.3 H* D Chloride 111 H Carbon Dioxide 17.5 L Anion Gap 23 H BUN 39 H Creatinine 3.45 H Estimated GFR 18 L POC Glucose Random Glucose 10 L* D Lactic Acid 18.3 H* Calcium 5.5 L* Calcium Adj for Albumin 7.7 L Phosphorus 15.5 H D Magnesium 3.2 H D Total Bilirubin AST ALT Alkaline Phosphatase Ammonia 368 H Troponin I Total Protein Albumin 1.2 L 05/05/18 05/05/18 05/05/18 06:26 07:35 07:35 WBC RBC Hgb Hct MCV MCH MCHC RDW Plt Count MPV Prelim Diff (Auto) Neut % (Auto) Lymph % (Auto) Kerr % (Auto) Eos % (Auto) Baso % (Auto) Neut # (Auto) Lymph # (Auto) Kerr # (Auto) Eos # (Auto) Baso # (Auto) WBC Differential Seg Neuts % (Manual) Band Neuts % (Manual) Lymphocytes % (Manual) Monocytes % (Manual) Metamyelocytes % (Man) Abs Neuts (Manual) Nucleated RBCs/100 WBC Differential Comment Platelet Estimate Platelet Morphology APTT Puncture Site Patient Temperature O2 Saturation ABG pH ABG pCO2 ABG pO2 ABG HCO3 ABG O2 Content ABG Base Excess ABG Methemoglobin Micah Test VBG pH VBG pCO2 VBG pO2 VBG HCO3 VBG O2 Saturation VBG O2 Content VBG Base Excess VBG Carboxyhemoglobin VBG Methemoglobin Hemoglobin Carboxyhemoglobin O2 Delivery Device Vent Setting Inspired O2 Critical Value Sodium 143 Potassium 10.1 H* D Chloride 106 Carbon Dioxide 16.7 L Anion Gap 20 H BUN 38 H Creatinine 3.83 H Estimated GFR 16 L POC Glucose Random Glucose 387 H D Lactic Acid Calcium 9.0 D Calcium Adj for Albumin Phosphorus Magnesium Total Bilirubin 1.4 H AST 7881 H ALT 3887 H Alkaline Phosphatase 188 H Ammonia Troponin I 0.75 H* 0.70 H* Total Protein 2.7 L D Albumin 1.0 L 05/05/18 05/05/18 05/05/18 07:35 08:00 08:06 WBC RBC Hgb Hct MCV MCH MCHC RDW Plt Count MPV Prelim Diff (Auto) Neut % (Auto) Lymph % (Auto) Kerr % (Auto) Eos % (Auto) Baso % (Auto) Neut # (Auto) Lymph # (Auto) Kerr # (Auto) Eos # (Auto) Baso # (Auto) WBC Differential Seg Neuts % (Manual) Band Neuts % (Manual) Lymphocytes % (Manual) Monocytes % (Manual) Metamyelocytes % (Man) Abs Neuts (Manual) Nucleated RBCs/100 WBC Differential Comment Platelet Estimate Platelet Morphology APTT 70.7 H Puncture Site Peripheral line Art line Patient Temperature 98.6 98.6 O2 Saturation 92 ABG pH 7.01 L* ABG pCO2 54 H* ABG pO2 99 ABG HCO3 13 L* ABG O2 Content 13.9 ABG Base Excess -16.4 L ABG Methemoglobin 1.5 Micah Test Present VBG pH 6.97 L* VBG pCO2 63 H* VBG pO2 55 H VBG HCO3 14 L* VBG O2 Saturation 70 VBG O2 Content 10.8 VBG Base Excess -15.8 L VBG Carboxyhemoglobin 0.0 VBG Methemoglobin 1.5 Hemoglobin 11.1 L 10.7 L Carboxyhemoglobin 0.0 O2 Delivery Device Bipap Ventilator Vent Setting Inspired O2 60 60 Critical Value Yes Yes Sodium Potassium Chloride Carbon Dioxide Anion Gap BUN Creatinine Estimated GFR POC Glucose Random Glucose Lactic Acid Calcium Calcium Adj for Albumin Phosphorus Magnesium Total Bilirubin AST ALT Alkaline Phosphatase Ammonia Troponin I Total Protein Albumin Microbiology 05/04/18 07:45 Sputum - Endotracheal Gram Stain - Final 05/03/18 15:45 Catheterized Urine Urine Culture - Preliminary No growth in 24 hours 05/03/18 15:45 Blood - Peripheral Aerobic Blood Culture - Preliminary No growth in 1 day 05/03/18 15:45 Blood - Peripheral Anaerobic Blood Culture - Preliminary No growth in 1 day 05/03/18 15:45 Blood - Peripheral Aerobic Blood Culture - Preliminary No growth in 1 day 05/03/18 15:45 Blood - Peripheral Anaerobic Blood Culture - Preliminary No growth in 1 day - Imaging Impressions Chest X-Ray 05/05/18 00:00 CONCLUSION: 1. Left IJ central line tip at the brachiocephalic SVC junction. No pneumothorax. 2. Remaining tubes and lines are stable. 3. Mild pulmonary vascular/interstitial congestion. Chest X-Ray 05/05/18 04:00 CONCLUSION: Interval development of peribronchial thickening in the mid and lower perihilar region suggesting pulmonary interstitial edema. No focal infiltrates seen. Assessment and Plan - Assessment (1) Lactic acidosis Code(s): E87.2 - Acidosis Status: Acute (2) Acute kidney injury Code(s): N17.9 - Acute kidney failure, unspecified Status: Acute (3) Elevated levels of transaminase & lactic acid dehydrogenase Code(s): R74.0 - Nonspecific elevation of levels of transaminase and lactic acid dehydrogenase [LDH] Status: Acute (4) Hypoalbuminemia Code(s): E88.09 - Other disorders of plasma-protein metabolism, not elsewhere classified Status: Acute (5) Macrocytic anemia Code(s): D53.9 - Nutritional anemia, unspecified Status: Acute (6) Influenza A Code(s): J10.1 - Influenza due to other identified influenza virus with other respiratory manifestations Status: Acute (7) History of essential hypertension Code(s): Z86.79 - Personal history of other diseases of the circulatory system Status: Acute (8) History of COPD Code(s): Z87.09 - Personal history of other diseases of the respiratory system Status: Acute (9) Elevated troponin Code(s): R74.8 - Abnormal levels of other serum enzymes Status: Acute (10) Acute respiratory failure Code(s): J96.00 - Acute respiratory failure, unspecified whether with hypoxia or hypercapnia Status: Acute (11) Cardiac arrest Code(s): I46.9 - Cardiac arrest, cause unspecified Status: Acute (12) Cholelithiasis Code(s): K80.20 - Calculus of gallbladder without cholecystitis without obstruction Status: Acute (13) Rib fractures Code(s): S22.39XA - Fracture of one rib, unspecified side, initial encounter for closed fracture Status: Acute (14) Hyperkalemia, transcellular shifts Code(s): E87.5 - Hyperkalemia Status: Acute (15) Hypocalcemia Code(s): E83.51 - Hypocalcemia Status: Acute (16) Hyperammonemia Code(s): E72.20 - Disorder of urea cycle metabolism, unspecified Status: Acute (10) Acute respiratory failure Qualifiers: Respiratory failure complication: hypoxia and hypercapnia Qualified Code(s): J96.01 - Acute respiratory failure with hypoxia; J96.02 - Acute respiratory failure with hypercapnia (12) Cholelithiasis Qualifiers: Cholelithiasis location: gallbladder Cholecystitis presence: without cholecystitis Biliary obstruction: without biliary obstruction Qualified Code( s): K80.20 - Calculus of gallbladder without cholecystitis without obstruction (13) Rib fractures Qualifiers: Encounter type: initial encounter Rib fracture type: multiple ribs Fracture type: closed Laterality: bilateral Qualified Code(s): S22.43XA - Multiple fractures of ribs, bilateral, initial encounter for closed fracture
[2018-05-05 10:46] LABS: CKMB Percent 0.6 % (0.0-4.0); Creatine Kinase MB 54.4 ng/mL (0.5-3.6)
[2018-05-05] MEDS: Chlorhexidine 0.12% Oral Kit 15 ML UDC OROPHARYNG SCH (11:30)
--- NOTE | 2018-05-05 11:37 | P.PNPAL ---
[facility] results obtained. Matches to patient came up (Rosangela Sales and Thad Sales). Possible relative to Rosangela Sales: * Bee Carlton: [phone] and [phone] (LM requesting call back)
--- NOTE | 2018-05-05 16:47 | ECG ---
Date Performed: 05/04/2018 Time Performed: 07:07:21 PTAGE: 72 years EKG: Sinus rhythm WITH MARKED SINUS ARRHYTHMIA LOW QRS VOLTAGE IN PRECORDIAL LEADS MODERATE INTRAVENTRICULAR CONDUCTIO N DELAY PROLONGED QT INTERVAL ABNORMAL ECG PREVIOUS TRACING : 05/03/2018 15.14 Since the previous tracing, no significant change noted DOCTOR: Camacho Bush Interpretating Date/Time 05/05/2018 16:45:50
--- NOTE | 2018-05-05 16:47 | ECG ---
Date Performed: 05/03/2018 Time Performed: 15:14:41 PTAGE: 72 years EKG: SINUS TACHYCARDIA ABNORMAL RHYTHM ECG NO PREVIOUS TRACING DOCTOR: Camacho Bush Interpretating Date/Time 05/05/2018 16:45:37
--- NOTE | 2018-05-05 16:48 | ECG ---
Date Performed: 05/05/2018 Time Performed: 06:35:10 PTAGE: 72 years EKG: Sinus rhythm with borderline 1st degree A-V block Indeterminate axis Inferior infarct - age undetermined Anterose ptal infarct - age undetermined Generalized low QRS voltages Abnormal ECG PREVIOUS TRACING 05/04/18 @ 07.07.21 Since the previous tracing, no significant change noted DOCTOR: Camacho Buhs Interpretating Date/Time 05/05/2018 16:46:46
== END 2018-05-05 09:46 | disposition expired ==
LOC: NEPC 15:12 → NEDA 16:46 → HIMC 18:00
PROVIDERS: ADMIT Internal Medicine Critical Care Medicine; ATTEND Internal Medicine Critical Care Medicine